=== PATIENT | female | born 1990 | race Caucasian/White ===

== ENCOUNTER 2021-04-04 09:45 | Outpatient (RCR) | payer OTHER, MEDICAID, SELFPAY ==
--- NOTE | 2021-01-15 14:26 | PT.OIE ---
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) Visit Care Team Role Provider Type Marco Antonio Ac MD Family Provider Non-Staff Primary Care Provider Specialty: Family Practice Address: [address] [place] [address], [id number] Email: Donny Deng DPM Attending Provider Non-Staff Referring Provider Specialty: Podiatry Address: [address] [place] [address], [phone] Email: Physical Therapy Initial Evaluation PT-OP-A Visit Information Start: 01/14/21 16:14 Freq: Status: Active Protocol: Document 01/15/21 09:02 MB (Rec: 01/15/21 09:25 MB [id number]) Out-Patient Physical Therapy Visit Information Visit Information Visit Type Initial Evaluation Visit Note Cee 24 visits per year Visit Start Time 09:02 Visit Stop Time 09:45 Total Visit Minutes 43 Visit Number 06/30 Evaluation Information Evaluation Date 01/15/21 Precautions Precautions Protocol for right LE, achilles not yet received and front office has called surgeon's office. Pt underwent right bone spur removal, calf lengthening and achilles reattachment on 12/06/20. 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 When she went to bed, her foot hurt. In August, she went to Urgent Care, got a boot and then was referred to Dr. Deng . Pt dx with right Isaac's Deformity, bone spur and tears around achilles. She underwent bone spur removal, calf lengthening and achilles reattachement on . On 12/22/20, she bumped her right foot and her incision opened. It bled a lot and went to the ED. When she followed- up with the surgeon on the , she was told NWB with boot and crutches until 01/07/21 . On 01/07/21 appointment date, she was told she could do light WB with boot and crutches. She still uses her knee scooter. It is uncomfortable starting to WB on the foot. She doesn't want to injure the foot. It hurts to extend through the foot. She has two small children. She is frustrated because she cannot be active. Her fiance and mom help out. Her mom transports her to PT. She has three steps to enter the home. She is sitting on her butt to bump down the steps. Once she is in the house, she has her knee scooter and get around. PMH includes depression, gastric sleeve. Pt reports 4-5/10 right calf and heel pain. She is waking up at night when she bumps her foot. Treatment Goals Patient/Caregiver Goals To decrease pain and improve mobility PT-OP-C Subjective Start: 01/14/21 16:14 Freq: Status: Active Protocol: Document 01/15/21 09:02 MB (Rec: 01/15/21 09:25 MB [id number]) OP-PT Subjective Patient Comments Patient Comments See history of current condition Patient Questionnaires Lower Extremity Functional Scale LEFS Score 26 LEFS Impairment 20 to 39% Impaired (Score 48- 62) PT-OP-G Mobility & Gait Start: 01/14/21 16:14 Freq: Status: Active Protocol: Document 01/15/21 09:02 MB (Rec: 01/15/21 14:26 MB [id number]) OP Gait Assessment Gait Gait Assistance Required: Independent Distance (Feet) 60 Able to Maintain Weight Bearing Status Yes During Gait Assistive Devices Assistive Device Axillary Crutches Orthotic/Prosthetic Devices or Brace: Yes Gait Deviations General Gait Pattern Antalgic,Decreased Stride Length,Decreased Feet Clearance,Flexed Trunk,Step-to Gait Factors Limiting Gait Function Factors Limiting Gait Function Decreased Activity Tolerance, Decreased Strength,Limited Range of Motion,Pain,Poor Balance Comments Gait Comments Pt arrives with axillary crutches that are short for her. She has boot donned on right foot and is WBTT with it and crutches. She states that surgeon cleared her for this light weight bearing with boot and crutches last week. She scoots right foot along the ground some with very limited WB with use of crutches for body weight support. Her gait is slow and antalgic. She likes crutches that height currently as it helps unweight her foot. PT does think that crutches could be raised at least one setting and ed pt this if she wants to try it at home. PT-OP-K Range of Motion Start: 01/14/21 16:14 Freq: Status: Active Protocol: Document 01/15/21 09:02 MB (Rec: 01/15/21 14:26 MB [id number]) Ankle and Foot Goniometric Range of Motion Ankle and Foot ROM Limitations Comments Right ankle: lacks 5 deg active DF, presents with 30 deg active PF, presents with 10 deg eversion and 25 deg inversion. Pt reports tape allergy in the hospital. She has scabs over distal right gastroc and over achilles and right LE edema and muscle wasting of distal LE musculature. Left foot and ankle are normal . PT-OP-M Strength Start: 01/14/21 16:14 Freq: Status: Active Protocol: Document 01/15/21 09:02 MB (Rec: 01/15/21 14:26 MB [id number]) Hip Strength Hip Manual Muscle Testing Left Flexion (L2) 5 Normal Abduction 5 Normal Adduction 5 Normal Right Flexion (L2) 5 Normal Abduction 5 Normal Adduction 5 Normal Knee Strength Knee Manual Muscle Testing Left Flexion (S2) 5 Normal Extension (L3) 5 Normal Right Flexion (S2) 5 Normal Extension (L3) 5 Normal Ankle/Foot Strength Ankle and Foot Manual Muscle Testing Left Dorsiflexion (L4) 5 Normal Inversion 5 Normal Eversion (S1) 5 Normal Right Comments NT due to recent surgery and pain PT-OP-Q Treatments Start: 01/14/21 16:14 Freq: Status: Active Protocol: Document 01/15/21 09:02 MB (Rec: 01/15/21 14:10 MB [id number]) Self-Care/Home Management Treatment Education Patient Education Home Exercise Program,Pain Management,Safety Other Education PT ed pt and mother: 1-Call surgeon's office to ask about protocol and if/when she can get into the pool 2-Benefits of thigh high compression and provided handout with measuring info and PT cuts G size Tubagrip and dons on pt today 3-Benefits of something to put under sheets in the bed to keep the sheets and blanket off her foot to help with sleeping 4-Use of frozen peas 5-Push active DF, PF, eversion and inversion in supine or reclined position since surgeon wrote that she should be doing this and it will help range 1-[id number]-[id number] over scar and calf with lotion after showering PT-OP-T Assessment and Plan Start: 01/14/21 16:14 Freq: Status: Active Protocol: Document 01/15/21 09:02 MB (Rec: 01/15/21 14:26 MB [id number]) Physical Therapy Assessment Rehab Potential Rehabilitation Potential Fair Evaluation Complexity Number of Personal Factors/Comorbidities 1-2 Number of Body Systems Impaired 1-2 Clinical Presentation at Evaluation Stable Impairments Impairments Activity Tolerance,Balance, Edema,Functional Activities, Functional Mobility,Gait, Integument,Pain,Posture,ROM, Soft Tissue Mobility,Strength Other Impairments Personal factors include that pt is a mom with two small children and she cannot currently drive. Her job requires her to drive most of the day. Body systems affected include musculoskeletal and neuromuscular. Her clinical presentation is stable to evolving (she did have the recent wound dehiscence). Other Concerns Fall Risk Yes Goals 5 Intermediate Goal (LTG) Pt will perform progressive HEP with I including balance, strengthening, flexibility, gait and aquatic exercises to improve range, pain and function by 03/17/21. LTG Duration 8 weeks 4 Professor Of Music Goal (LTG) Pt will demonstrate functional right ankle ROM and strength for gait without AD by . LTG Duration 8 weeks 3 Intermediate Goal (LTG) Pt will perform 4 stair ambulation with rails with mod I to allow safe home entry and negotiation by 03/17/21. LTG Duration 8 weeks 2 Intermediate Goal (LTG) Pt will perform WNLs on a standardized balance test to decrease fall risk by 03/17/21 . LTG Duration 8 weeks 1 Professor Of Music Goal (LTG) Pt will gait train at least 1200 feet in 6 minutes with or without LRAD to improve community ambulation by . LTG Duration 8 weeks Assessment Summary Assessment Pt is a 30 y/o female presenting with right calf, ankle and heel pain, decreased range, strength and gait after surgery including bone spur removal, calf lengthening and achilles tendon relocation. This PT clinic has not yet received a protocol from the doctor's office and the doctor's visit note received states that pt was NWB in boot. She staets that WB was increased last week to light WB in boot with crutches . This clinic's front office has called the provider's office and pt will call as well and PT will send this note over today. Pt will benefit from PT to improve range, balance, flexiblity, strength and gait. Pt is a mom with two small children and she is anxious to get back to work and drive. She is interested in aquatic exercises and so will include this in PT plan, though pt will have to get in the pool on her own at this time. Physical Therapy Plan Frequency and Duration Frequency of Treatment 2x/Week Duration of Treatment 8 weeks Plan of Care Start Date 01/15/21 Plan of Care End Date 03/17/21 Therapeutic Interventions Therapeutic Interventions Aquatic Therapy,Balance Training,Gait Training,Home Exercise Program,Joint Mobilizations,Manual Therapy, Neuromuscular Re-education, Orthotic/Prosthetic Management ,Patient/Caregiver Education, Self-Care/Home Management,Soft Tissue Mobilization, Therapeutic Activities, Therapeutic Exercises Modalities Cold Pack/Ice Massage,Electric Stimulation,Hot Packs, Ultrasound Next Visit Focus/Plan Next Note Type Treatment Note Next Visit Plan Progress manual work and exercises
--- NOTE | 2021-01-15 14:27 | PT.OPPOC ---
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) Visit Care Team Role Provider Type Marco Antonio Ac MD Family Provider Non-Staff Primary Care Provider Specialty: Family Practice Address: [address] [place] [address], [id number] Email: Donny Deng DPM Attending Provider Non-Staff Referring Provider Specialty: Podiatry Address: [address] [place] [address], [phone] Email: Plan Of Care PT-OP-T Assessment and Plan Start: 01/14/21 16:14 Freq: Status: Active Protocol: Document 01/15/21 09:02 MB (Rec: 01/15/21 14:26 MB [id number]) Physical Therapy Assessment Rehab Potential Rehabilitation Potential Fair Evaluation Complexity Number of Personal Factors/Comorbidities 1-2 Number of Body Systems Impaired 1-2 Clinical Presentation at Evaluation Stable Impairments Impairments Activity Tolerance,Balance, Edema,Functional Activities, Functional Mobility,Gait, Integument,Pain,Posture,ROM, Soft Tissue Mobility,Strength Other Impairments Personal factors include that pt is a mom with two small children and she cannot currently drive. Her job requires her to drive most of the day. Body systems affected include musculoskeletal and neuromuscular. Her clinical presentation is stable to evolving (she did have the recent wound dehiscence). Other Concerns Fall Risk Yes Goals 5 Senior Living Goal (LTG) Pt will perform progressive HEP with I including balance, strengthening, flexibility, gait and aquatic exercises to improve range, pain and function by 03/17/21. LTG Duration 8 weeks 4 Senior Living Goal (LTG) Pt will demonstrate functional right ankle ROM and strength for gait without AD by . LTG Duration 8 weeks 3 Senior Living Goal (LTG) Pt will perform 4 stair ambulation with rails with mod I to allow safe home entry and negotiation by 03/17/21. LTG Duration 8 weeks 2 Senior Living Goal (LTG) Pt will perform WNLs on a standardized balance test to decrease fall risk by 03/17/21 . LTG Duration 8 weeks 1 Professor Of Violin Goal (LTG) Pt will gait train at least 1200 feet in 6 minutes with or without LRAD to improve community ambulation by . LTG Duration 8 weeks Assessment Summary Assessment Pt is a 30 y/o female presenting with right calf, ankle and heel pain, decreased range, strength and gait after surgery including bone spur removal, calf lengthening and achilles tendon relocation. This PT clinic has not yet received a protocol from the doctor's office and the doctor's visit note received states that pt was NWB in boot. She staets that WB was increased last week to light WB in boot with crutches . This clinic's front office has called the provider's office and pt will call as well and PT will send this note over today. Pt will benefit from PT to improve range, balance, flexiblity, strength and gait. Pt is a mom with two small children and she is anxious to get back to work and drive. She is interested in aquatic exercises and so will include this in PT plan, though pt will have to get in the pool on her own at this time. Physical Therapy Plan Frequency and Duration Frequency of Treatment 2x/Week Duration of Treatment 8 weeks Plan of Care Start Date 01/15/21 Plan of Care End Date 03/17/21 Therapeutic Interventions Therapeutic Interventions Aquatic Therapy,Balance Training,Gait Training,Home Exercise Program,Joint Mobilizations,Manual Therapy, Neuromuscular Re-education, Orthotic/Prosthetic Management ,Patient/Caregiver Education, Self-Care/Home Management,Soft Tissue Mobilization, Therapeutic Activities, Therapeutic Exercises Modalities Cold Pack/Ice Massage,Electric Stimulation,Hot Packs, Ultrasound Next Visit Focus/Plan Next Note Type Treatment Note Next Visit Plan Progress manual work and exercises Plan of Care Dates Plan of Care Start Date 01/15/21 Plan of Care End Date 03/17/21 Electronically Signed by: Charito Hastings, PT 01/15/21 2590 Please Sign and Return: I have reviewed this Plan of Care and certify that the skilled therapy services above are required to meet the patient?s needs. Physician Signature Date Printed Name and Credentials Clinical Instructor Signature Printed Name and Credentials
--- NOTE | 2021-01-16 07:26 | PT-OP ANOTE ---
PT received message to call Dr. Deng's office back (PT left message asking for protocol yesterday afternoon.) PT speaks with front office person who reads note from the EMR that pt is allowed to progress WB as long as her incision is healed and she is allowed to progress in the pool. There are no other comments offered. PT asks for information to be faxed to clinic and provides fax number.
--- NOTE | 2021-01-17 10:34 | PT.OTN ---
Current Diagnoses Juvenile osteochondrosis of tarsus, unspecified ankle (01/17/21) Physical Therapy Treatment Note PT-OP-A Visit Information Start: 01/14/21 16:14 Freq: Status: Active Protocol: Document 01/17/21 09:45 MB (Rec: 01/17/21 10:33 MB [id number]) Out-Patient Physical Therapy Visit Information Visit Information Visit Type Treatment Note Visit Start Time 09:45 Visit Stop Time 10:30 Total Visit Minutes 45 Visit Number 07/31 Precautions Precautions 01/16/21: WBAT to the affected extremity with use of normal shoe. WB status should be progressed slowly with avoidance of high-impact activities and heavy lifting initially until further evaluation. Please focus on low impace stretching, proprioceptive and strengthening exercises. Pt is cleared for all physical therapy activities taking place in a pool. 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 When she went to bed, her foot hurt. In August, she went to Urgent Care, got a boot and then was referred to Dr. Deng . Pt dx with right Isaac's Deformity, bone spur and tears around achilles. She underwent bone spur removal, calf lengthening and achilles reattachement on . On 12/22/20, she bumped her right foot and her incision opened. It bled a lot and went to the ED. When she followed- up with the surgeon on the , she was told NWB with boot and crutches until 01/07/21 . On 01/07/21 appointment date, she was told she could do light WB with boot and crutches. She still uses her knee scooter. It is uncomfortable starting to WB on the foot. She doesn't want to injure the foot. It hurts to extend through the foot. She has two small children. She is frustrated because she cannot be active. Her fiance and mom help out. Her mom transports her to PT. She has three steps to enter the home. She is sitting on her butt to bump down the steps. Once she is in the house, she has her knee scooter and get around. PMH includes depression, gastric sleeve. Pt reports 4-5/10 right calf and heel pain. She is waking up at night when she bumps her foot. Treatment Goals Patient/Caregiver Goals To decrease pain and improve mobility PT-OP-C Subjective Start: 01/14/21 16:14 Freq: Status: Active Protocol: Document 01/17/21 09:45 MB (Rec: 01/17/21 10:34 MB [id number]) OP-PT Subjective Patient Comments Patient Comments Pt states that she talked with doctor's office. PT ed pt that we did receive referral. PT-OP-G Mobility & Gait Start: 01/14/21 16:14 Freq: Status: Active Protocol: Document 01/15/21 09:02 MB (Rec: 01/15/21 14:26 MB [id number]) OP Gait Assessment Gait Gait Assistance Required: Independent Distance (Feet) 60 Able to Maintain Weight Bearing Status Yes During Gait Assistive Devices Assistive Device Axillary Crutches Orthotic/Prosthetic Devices or Brace: Yes Gait Deviations General Gait Pattern Antalgic,Decreased Stride Length,Decreased Feet Clearance,Flexed Trunk,Step-to Gait Factors Limiting Gait Function Factors Limiting Gait Function Decreased Activity Tolerance, Decreased Strength,Limited Range of Motion,Pain,Poor Balance Comments Gait Comments Pt arrives with axillary crutches that are short for her. She has boot donned on right foot and is WBTT with it and crutches. She states that surgeon cleared her for this light weight bearing with boot and crutches last week. She scoots right foot along the ground some with very limited WB with use of crutches for body weight support. Her gait is slow and antalgic. She likes crutches that height currently as it helps unweight her foot. PT does think that crutches could be raised at least one setting and ed pt this if she wants to try it at home. PT-OP-K Range of Motion Start: 01/14/21 16:14 Freq: Status: Active Protocol: Document 01/15/21 09:02 MB (Rec: 01/15/21 14:26 MB [id number]) Ankle and Foot Goniometric Range of Motion Ankle and Foot ROM Limitations Comments Right ankle: lacks 5 deg active DF, presents with 30 deg active PF, presents with 10 deg eversion and 25 deg inversion. Pt reports tape allergy in the hospital. She has scabs over distal right gastroc and over achilles and right LE edema and muscle wasting of distal LE musculature. Left foot and ankle are normal . PT-OP-M Strength Start: 01/14/21 16:14 Freq: Status: Active Protocol: Document 01/15/21 09:02 MB (Rec: 01/15/21 14:26 MB [id number]) Hip Strength Hip Manual Muscle Testing Left Flexion (L2) 5 Normal Abduction 5 Normal Adduction 5 Normal Right Flexion (L2) 5 Normal Abduction 5 Normal Adduction 5 Normal Knee Strength Knee Manual Muscle Testing Left Flexion (S2) 5 Normal Extension (L3) 5 Normal Right Flexion (S2) 5 Normal Extension (L3) 5 Normal Ankle/Foot Strength Ankle and Foot Manual Muscle Testing Left Dorsiflexion (L4) 5 Normal Inversion 5 Normal Eversion (S1) 5 Normal Right Comments NT due to recent surgery and pain PT-OP-Q Treatments Start: 01/14/21 16:14 Freq: Status: Active Protocol: Document 01/17/21 09:45 MB (Rec: 01/17/21 10:33 MB [id number]) Cardio Equipment Recumbent Elliptical (BiodPinpointe) Duration (Minutes) 15 Resistance 2 Seat Position 8-9 Other UE and LE use, progressive confidence in right foot Therapeutic Exercises Supine Exercises Hamstring stretch with AP Side bilateral Comments AP 20-30 reps Sitting Exercises Foot hammock with band Comments Foot and AP with level 1 band to start Other Exercises Pool program Other Exercise Name Thoracic rotation with arms out standing for weight shift, SB standing Comments March, hamstring curl, walking , squats hip abd/ext/flexion Gait Training Gait Activity Crutch with left side only today Comments Boot on right foot, cues to wear higher shoe on left foot Manual Therapy Treatment Other Other Manual Treatments Right gastrocsoleus and plantar fascia STM, phalange mobs and grade II-III tarsal mobs, scar STM and pt reports is tender PT-OP-T Assessment and Plan Start: 01/14/21 16:14 Freq: Status: Active Protocol: Document 01/17/21 09:45 MB (Rec: 01/17/21 10:33 MB [id number]) Physical Therapy Assessment Rehab Potential Rehabilitation Potential Fair Evaluation Complexity Number of Personal Factors/Comorbidities 1-2 Number of Body Systems Impaired 1-2 Clinical Presentation at Evaluation Stable Impairments Impairments Activity Tolerance,Balance, Edema,Functional Activities, Functional Mobility,Gait, Integument,Pain,Posture,ROM, Soft Tissue Mobility,Strength Other Impairments Personal factors include that pt is a mom with two small children and she cannot currently drive. Her job requires her to drive most of the day. Body systems affected include musculoskeletal and neuromuscular. Her clinical presentation is stable to evolving (she did have the recent wound dehiscence). Other Concerns Fall Risk Yes Goals 5 Cardiovascular Surgical Tech Goal (LTG) Pt will perform progressive HEP with I including balance, strengthening, flexibility, gait and aquatic exercises to improve range, pain and function by 03/17/21. LTG Duration 8 weeks 4 Senior Living Goal (LTG) Pt will demonstrate functional right ankle ROM and strength for gait without AD by . LTG Duration 8 weeks 3 Senior Living Goal (LTG) Pt will perform 4 stair ambulation with rails with mod I to allow safe home entry and negotiation by 03/17/21. LTG Duration 8 weeks 2 Cardiovascular Surgical Tech Goal (LTG) Pt will perform WNLs on a standardized balance test to decrease fall risk by 03/17/21 . LTG Duration 8 weeks 1 Senior Living Goal (LTG) Pt will gait train at least 1200 feet in 6 minutes with or without LRAD to improve community ambulation by . LTG Duration 8 weeks Assessment Summary Assessment Progressed ROM exercises today , started recumbent stepper and provided initial pool program and PT gives pt handouts. Pt will look into getting into pool in [facility]. Physical Therapy Plan Frequency and Duration Frequency of Treatment 2x/Week Duration of Treatment 8 weeks Plan of Care Start Date 01/15/21 Plan of Care End Date 03/17/21 Therapeutic Interventions Therapeutic Interventions Aquatic Therapy,Balance Training,Gait Training,Home Exercise Program,Joint Mobilizations,Manual Therapy, Neuromuscular Re-education, Orthotic/Prosthetic Management ,Patient/Caregiver Education, Self-Care/Home Management,Soft Tissue Mobilization, Therapeutic Activities, Therapeutic Exercises Modalities Cold Pack/Ice Massage,Electric Stimulation,Hot Packs, Ultrasound Next Visit Focus/Plan Next Note Type Treatment Note Next Visit Plan Progress manual work and exercises--including core and leg strengthening in sitting and hook lying such as bridging
--- NOTE | 2021-01-22 09:01 | PT.OTN ---
Current Diagnoses Juvenile osteochondrosis of tarsus, unspecified ankle (01/22/21) Physical Therapy Treatment Note PT-OP-A Visit Information Start: 01/14/21 16:14 Freq: Status: Active Protocol: Document 01/22/21 08:15 MB (Rec: 01/22/21 08:42 MB [id number]) Out-Patient Physical Therapy Visit Information Visit Information Visit Type Treatment Note Visit Start Time 08:15 Visit Stop Time 09:00 Total Visit Minutes 45 Visit Number 08/28 Precautions Precautions 01/16/21: WBAT to the affected extremity with use of normal shoe. WB status should be progressed slowly with avoidance of high-impact activities and heavy lifting initially until further evaluation. Please focus on low impace stretching, proprioceptive and strengthening exercises. Pt is cleared for all physical therapy activities taking place in a pool. 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 When she went to bed, her foot hurt. In August, she went to Urgent Care, got a boot and then was referred to Dr. Deng . Pt dx with right Isaac's Deformity, bone spur and tears around achilles. She underwent bone spur removal, calf lengthening and achilles reattachement on . On 12/22/20, she bumped her right foot and her incision opened. It bled a lot and went to the ED. When she followed- up with the surgeon on the , she was told NWB with boot and crutches until 01/07/21 . On 01/07/21 appointment date, she was told she could do light WB with boot and crutches. She still uses her knee scooter. It is uncomfortable starting to WB on the foot. She doesn't want to injure the foot. It hurts to extend through the foot. She has two small children. She is frustrated because she cannot be active. Her fiance and mom help out. Her mom transports her to PT. She has three steps to enter the home. She is sitting on her butt to bump down the steps. Once she is in the house, she has her knee scooter and get around. PMH includes depression, gastric sleeve. Pt reports 4-5/10 right calf and heel pain. She is waking up at night when she bumps her foot. Treatment Goals Patient/Caregiver Goals To decrease pain and improve mobility PT-OP-C Subjective Start: 01/14/21 16:14 Freq: Status: Active Protocol: Document 01/22/21 08:15 MB (Rec: 01/22/21 08:42 MB [id number]) OP-PT Subjective Patient Comments Patient Comments Pt states that she feels more tenderness in her right heel and calf after doing more with her foot including walking with the one crutch and doing exercises. PT-OP-G Mobility & Gait Start: 01/14/21 16:14 Freq: Status: Active Protocol: Document 01/15/21 09:02 MB (Rec: 01/15/21 14:26 MB [id number]) OP Gait Assessment Gait Gait Assistance Required: Independent Distance (Feet) 60 Able to Maintain Weight Bearing Status Yes During Gait Assistive Devices Assistive Device Axillary Crutches Orthotic/Prosthetic Devices or Brace: Yes Gait Deviations General Gait Pattern Antalgic,Decreased Stride Length,Decreased Feet Clearance,Flexed Trunk,Step-to Gait Factors Limiting Gait Function Factors Limiting Gait Function Decreased Activity Tolerance, Decreased Strength,Limited Range of Motion,Pain,Poor Balance Comments Gait Comments Pt arrives with axillary crutches that are short for her. She has boot donned on right foot and is WBTT with it and crutches. She states that surgeon cleared her for this light weight bearing with boot and crutches last week. She scoots right foot along the ground some with very limited WB with use of crutches for body weight support. Her gait is slow and antalgic. She likes crutches that height currently as it helps unweight her foot. PT does think that crutches could be raised at least one setting and ed pt this if she wants to try it at home. PT-OP-K Range of Motion Start: 01/14/21 16:14 Freq: Status: Active Protocol: Document 01/15/21 09:02 MB (Rec: 01/15/21 14:26 MB [id number]) Ankle and Foot Goniometric Range of Motion Ankle and Foot ROM Limitations Comments Right ankle: lacks 5 deg active DF, presents with 30 deg active PF, presents with 10 deg eversion and 25 deg inversion. Pt reports tape allergy in the hospital. She has scabs over distal right gastroc and over achilles and right LE edema and muscle wasting of distal LE musculature. Left foot and ankle are normal . PT-OP-M Strength Start: 01/14/21 16:14 Freq: Status: Active Protocol: Document 01/15/21 09:02 MB (Rec: 01/15/21 14:26 MB [id number]) Hip Strength Hip Manual Muscle Testing Left Flexion (L2) 5 Normal Abduction 5 Normal Adduction 5 Normal Right Flexion (L2) 5 Normal Abduction 5 Normal Adduction 5 Normal Knee Strength Knee Manual Muscle Testing Left Flexion (S2) 5 Normal Extension (L3) 5 Normal Right Flexion (S2) 5 Normal Extension (L3) 5 Normal Ankle/Foot Strength Ankle and Foot Manual Muscle Testing Left Dorsiflexion (L4) 5 Normal Inversion 5 Normal Eversion (S1) 5 Normal Right Comments NT due to recent surgery and pain PT-OP-Q Treatments Start: 01/14/21 16:14 Freq: Status: Active Protocol: Document 01/22/21 08:15 MB (Rec: 01/22/21 08:42 MB [id number]) Cardio Equipment Recumbent Elliptical (BiodRatePoint) Duration (Minutes) 10 Resistance 2 Seat Position 11 Other UE and LE use Therapeutic Exercises Supine Exercises Core progression Supine Exercise Name Abd draw in, pelvic tilt start position Side bilateral Comments Lumbar rotation, HS, knee fall out, bridge with band around knees Manual Therapy Treatment Other Other Manual Treatments Pt prone; Right gastrocsoleus and plantar fascia STM, phalange mobs and grade II-III tarsal mobs, scar STM PT-OP-T Assessment and Plan Start: 01/14/21 16:14 Freq: Status: Active Protocol: Document 01/22/21 08:15 MB (Rec: 01/22/21 08:42 MB [id number]) Physical Therapy Assessment Rehab Potential Rehabilitation Potential Fair Evaluation Complexity Number of Personal Factors/Comorbidities 1-2 Number of Body Systems Impaired 1-2 Clinical Presentation at Evaluation Stable Impairments Impairments Activity Tolerance,Balance, Edema,Functional Activities, Functional Mobility,Gait, Integument,Pain,Posture,ROM, Soft Tissue Mobility,Strength Other Impairments Personal factors include that pt is a mom with two small children and she cannot currently drive. Her job requires her to drive most of the day. Body systems affected include musculoskeletal and neuromuscular. Her clinical presentation is stable to evolving (she did have the recent wound dehiscence). Other Concerns Fall Risk Yes Goals 5 Auto Claim Representative Goal (LTG) Pt will perform progressive HEP with I including balance, strengthening, flexibility, gait and aquatic exercises to improve range, pain and function by 03/17/21. LTG Duration 8 weeks 4 Auto Claim Representative Goal (LTG) Pt will demonstrate functional right ankle ROM and strength for gait without AD by . LTG Duration 8 weeks 3 Snf Goal (LTG) Pt will perform 4 stair ambulation with rails with mod I to allow safe home entry and negotiation by 03/17/21. LTG Duration 8 weeks 2 Snf Goal (LTG) Pt will perform WNLs on a standardized balance test to decrease fall risk by 03/17/21 . LTG Duration 8 weeks 1 Snf Goal (LTG) Pt will gait train at least 1200 feet in 6 minutes with or without LRAD to improve community ambulation by . LTG Duration 8 weeks Assessment Summary Assessment Progressed core exercises today and this required legs to be bent and feet flatter. Pt will inquire about the pool the end of the month when finances are better. Physical Therapy Plan Frequency and Duration Frequency of Treatment 2x/Week Duration of Treatment 8 weeks Plan of Care Start Date 01/15/21 Plan of Care End Date 03/17/21 Therapeutic Interventions Therapeutic Interventions Aquatic Therapy,Balance Training,Gait Training,Home Exercise Program,Joint Mobilizations,Manual Therapy, Neuromuscular Re-education, Orthotic/Prosthetic Management ,Patient/Caregiver Education, Self-Care/Home Management,Soft Tissue Mobilization, Therapeutic Activities, Therapeutic Exercises Modalities Cold Pack/Ice Massage,Electric Stimulation,Hot Packs, Ultrasound Next Visit Focus/Plan Next Note Type Treatment Note Next Visit Plan Progress manual work and exercises, leg strengthening in sitting--LAQ with band around ankles, sitting clam with band around knees, calf stretch in standing for soleus and gastroc and NOT ON STEP, progress ankle ROM sitting with BAPS board and standing on mini tramp or blue cushion
--- NOTE | 2021-01-24 10:32 | PT.OTN ---
Current Diagnoses Juvenile osteochondrosis of tarsus, unspecified ankle (01/24/21) Physical Therapy Treatment Note PT-OP-A Visit Information Start: 01/14/21 16:14 Freq: Status: Active Protocol: Document 01/24/21 09:45 MB (Rec: 01/24/21 10:28 MB [id number]) Out-Patient Physical Therapy Visit Information Visit Information Visit Type Treatment Note Visit Note Pt returns to Dr. Deng 02/06/21 . PT to send over note 01/29/21 . Visit Start Time 09:45 Visit Stop Time 10:30 Total Visit Minutes 45 Visit Number 4 Precautions Precautions 01/16/21: WBAT to the affected extremity with use of normal shoe. WB status should be progressed slowly with avoidance of high-impact activities and heavy lifting initially until further evaluation. Please focus on low impace stretching, proprioceptive and strengthening exercises. Pt is cleared for all physical therapy activities taking place in a pool. 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 When she went to bed, her foot hurt. In August, she went to Urgent Care, got a boot and then was referred to Dr. Deng . Pt dx with right Isaac's Deformity, bone spur and tears around achilles. She underwent bone spur removal, calf lengthening and achilles reattachement on . On 12/22/20, she bumped her right foot and her incision opened. It bled a lot and went to the ED. When she followed- up with the surgeon on the , she was told NWB with boot and crutches until 01/07/21 . On 01/07/21 appointment date, she was told she could do light WB with boot and crutches. She still uses her knee scooter. It is uncomfortable starting to WB on the foot. She doesn't want to injure the foot. It hurts to extend through the foot. She has two small children. She is frustrated because she cannot be active. Her fiance and mom help out. Her mom transports her to PT. She has three steps to enter the home. She is sitting on her butt to bump down the steps. Once she is in the house, she has her knee scooter and get around. PMH includes depression, gastric sleeve. Pt reports 4-5/10 right calf and heel pain. She is waking up at night when she bumps her foot. Treatment Goals Patient/Caregiver Goals To decrease pain and improve mobility PT-OP-C Subjective Start: 01/14/21 16:14 Freq: Status: Active Protocol: Document 01/24/21 09:45 MB (Rec: 01/24/21 10:28 MB [id number]) OP-PT Subjective Patient Comments Patient Comments Pt states that she put her shoes on at the house and her right ankle doesn't even feel swollen. She reduced appointments to 1x/wk. PT-OP-G Mobility & Gait Start: 01/14/21 16:14 Freq: Status: Active Protocol: Document 01/15/21 09:02 MB (Rec: 01/15/21 14:26 MB [id number]) OP Gait Assessment Gait Gait Assistance Required: Independent Distance (Feet) 60 Able to Maintain Weight Bearing Status Yes During Gait Assistive Devices Assistive Device Axillary Crutches Orthotic/Prosthetic Devices or Brace: Yes Gait Deviations General Gait Pattern Antalgic,Decreased Stride Length,Decreased Feet Clearance,Flexed Trunk,Step-to Gait Factors Limiting Gait Function Factors Limiting Gait Function Decreased Activity Tolerance, Decreased Strength,Limited Range of Motion,Pain,Poor Balance Comments Gait Comments Pt arrives with axillary crutches that are short for her. She has boot donned on right foot and is WBTT with it and crutches. She states that surgeon cleared her for this light weight bearing with boot and crutches last week. She scoots right foot along the ground some with very limited WB with use of crutches for body weight support. Her gait is slow and antalgic. She likes crutches that height currently as it helps unweight her foot. PT does think that crutches could be raised at least one setting and ed pt this if she wants to try it at home. PT-OP-K Range of Motion Start: 01/14/21 16:14 Freq: Status: Active Protocol: Document 01/15/21 09:02 MB (Rec: 01/15/21 14:26 MB [id number]) Ankle and Foot Goniometric Range of Motion Ankle and Foot ROM Limitations Comments Right ankle: lacks 5 deg active DF, presents with 30 deg active PF, presents with 10 deg eversion and 25 deg inversion. Pt reports tape allergy in the hospital. She has scabs over distal right gastroc and over achilles and right LE edema and muscle wasting of distal LE musculature. Left foot and ankle are normal . PT-OP-M Strength Start: 01/14/21 16:14 Freq: Status: Active Protocol: Document 01/15/21 09:02 MB (Rec: 01/15/21 14:26 MB [id number]) Hip Strength Hip Manual Muscle Testing Left Flexion (L2) 5 Normal Abduction 5 Normal Adduction 5 Normal Right Flexion (L2) 5 Normal Abduction 5 Normal Adduction 5 Normal Knee Strength Knee Manual Muscle Testing Left Flexion (S2) 5 Normal Extension (L3) 5 Normal Right Flexion (S2) 5 Normal Extension (L3) 5 Normal Ankle/Foot Strength Ankle and Foot Manual Muscle Testing Left Dorsiflexion (L4) 5 Normal Inversion 5 Normal Eversion (S1) 5 Normal Right Comments NT due to recent surgery and pain PT-OP-Q Treatments Start: 01/14/21 16:14 Freq: Status: Active Protocol: Document 01/24/21 09:45 MB (Rec: 01/24/21 10:28 MB [id number]) Cardio Equipment Recumbent Elliptical (Red e App) Duration (Minutes) 15 Resistance 3 Seat Position 10 Other UE and LE use Therapeutic Exercises Sitting Exercises LAQ with band Side bilateral Resistance Green band Comments Alternating and AP x5 with extension, 10 reps Clam Side bilateral Resistance Green band Comments Core and glute tight, knees out, 10 reps Standing Exercises Gastroc and soleus stretches Side bilateral Comments Move between knee extended and straighter Manual Therapy Treatment Other Other Manual Treatments Pt prone. Right gastrocsoleus and plantar fascia STM, phalange mobs and grade II-III tarsal mobs, scar STM PT-OP-T Assessment and Plan Start: 01/14/21 16:14 Freq: Status: Active Protocol: Document 01/24/21 09:45 MB (Rec: 01/24/21 10:28 MB [id number]) Physical Therapy Assessment Rehab Potential Rehabilitation Potential Fair Evaluation Complexity Number of Personal Factors/Comorbidities 1-2 Number of Body Systems Impaired 1-2 Clinical Presentation at Evaluation Stable Impairments Impairments Activity Tolerance,Balance, Edema,Functional Activities, Functional Mobility,Gait, Integument,Pain,Posture,ROM, Soft Tissue Mobility,Strength Other Impairments Personal factors include that pt is a mom with two small children and she cannot currently drive. Her job requires her to drive most of the day. Body systems affected include musculoskeletal and neuromuscular. Her clinical presentation is stable to evolving (she did have the recent wound dehiscence). Other Concerns Fall Risk Yes Goals 5 Senior Care Goal (LTG) Pt will perform progressive HEP with I including balance, strengthening, flexibility, gait and aquatic exercises to improve range, pain and function by 03/17/21. LTG Duration 8 weeks 4 [place] Goal (LTG) Pt will demonstrate functional right ankle ROM and strength for gait without AD by . LTG Duration 8 weeks 3 Senior Care Goal (LTG) Pt will perform 4 stair ambulation with rails with mod I to allow safe home entry and negotiation by 03/17/21. LTG Duration 8 weeks 2 Senior Care Goal (LTG) Pt will perform WNLs on a standardized balance test to decrease fall risk by 03/17/21 . LTG Duration 8 weeks 1 [place]man Goal (LTG) Pt will gait train at least 1200 feet in 6 minutes with or without LRAD to improve community ambulation by . LTG Duration 8 weeks Assessment Summary Assessment Progressed quad and hip strengthening today and gentle calf stretches in standing. Retalked about pool schedule options. Physical Therapy Plan Frequency and Duration Frequency of Treatment 2x/Week Duration of Treatment 8 weeks Plan of Care Start Date 01/15/21 Plan of Care End Date 03/17/21 Therapeutic Interventions Therapeutic Interventions Aquatic Therapy,Balance Training,Gait Training,Home Exercise Program,Joint Mobilizations,Manual Therapy, Neuromuscular Re-education, Orthotic/Prosthetic Management ,Patient/Caregiver Education, Self-Care/Home Management,Soft Tissue Mobilization, Therapeutic Activities, Therapeutic Exercises Modalities Cold Pack/Ice Massage,Electric Stimulation,Hot Packs, Ultrasound Next Visit Focus/Plan Next Note Type Treatment Note Next Visit Plan Progress manual work, NO strecthing over a STEP, progress ankle ROM sitting with BAPS board and standing on mini tramp or blue cushion
--- NOTE | 2021-01-29 08:57 | PT.OTN ---
Current Diagnoses Juvenile osteochondrosis of tarsus, unspecified ankle (01/29/21) Physical Therapy Treatment Note PT-OP-A Visit Information Start: 01/14/21 16:14 Freq: Status: Active Protocol: Document 01/29/21 08:09 MB (Rec: 01/29/21 08:48 MB [id number]) Out-Patient Physical Therapy Visit Information Visit Information Visit Type Treatment Note Visit Note Pt returns to Dr. Deng 02/06/21 Visit Start Time 08:09 Visit Stop Time 08:55 Total Visit Minutes 46 Visit Number 10/28 Precautions Precautions 01/16/21: WBAT to the affected extremity with use of normal shoe. WB status should be progressed slowly with avoidance of high-impact activities and heavy lifting initially until further evaluation. Please focus on low impace stretching, proprioceptive and strengthening exercises. Pt is cleared for all physical therapy activities taking place in a pool. 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 When she went to bed, her foot hurt. In August, she went to Urgent Care, got a boot and then was referred to Dr. Deng . Pt dx with right Isaac's Deformity, bone spur and tears around achilles. She underwent bone spur removal, calf lengthening and achilles reattachement on . On 12/22/20, she bumped her right foot and her incision opened. It bled a lot and went to the ED. When she followed- up with the surgeon on the , she was told NWB with boot and crutches until 01/07/21 . On 01/07/21 appointment date, she was told she could do light WB with boot and crutches. She still uses her knee scooter. It is uncomfortable starting to WB on the foot. She doesn't want to injure the foot. It hurts to extend through the foot. She has two small children. She is frustrated because she cannot be active. Her fiance and mom help out. Her mom transports her to PT. She has three steps to enter the home. She is sitting on her butt to bump down the steps. Once she is in the house, she has her knee scooter and get around. PMH includes depression, gastric sleeve. Pt reports 4-5/10 right calf and heel pain. She is waking up at night when she bumps her foot. Treatment Goals Patient/Caregiver Goals To decrease pain and improve mobility PT-OP-C Subjective Start: 01/14/21 16:14 Freq: Status: Active Protocol: Document 01/29/21 08:09 MB (Rec: 01/29/21 08:48 MB [id number]) OP-PT Subjective Patient Comments Patient Comments Pt states that she tried to wear her running shoes a couple of days and the pressure on the bottom of the right heel was problematic and so she did not bring in her shoes today. She did bring in her sandals and she wears her walking boot into clinic. PT-OP-G Mobility & Gait Start: 01/14/21 16:14 Freq: Status: Active Protocol: Document 01/15/21 09:02 MB (Rec: 01/15/21 14:26 MB [id number]) OP Gait Assessment Gait Gait Assistance Required: Independent Distance (Feet) 60 Able to Maintain Weight Bearing Status Yes During Gait Assistive Devices Assistive Device Axillary Crutches Orthotic/Prosthetic Devices or Brace: Yes Gait Deviations General Gait Pattern Antalgic,Decreased Stride Length,Decreased Feet Clearance,Flexed Trunk,Step-to Gait Factors Limiting Gait Function Factors Limiting Gait Function Decreased Activity Tolerance, Decreased Strength,Limited Range of Motion,Pain,Poor Balance Comments Gait Comments Pt arrives with axillary crutches that are short for her. She has boot donned on right foot and is WBTT with it and crutches. She states that surgeon cleared her for this light weight bearing with boot and crutches last week. She scoots right foot along the ground some with very limited WB with use of crutches for body weight support. Her gait is slow and antalgic. She likes crutches that height currently as it helps unweight her foot. PT does think that crutches could be raised at least one setting and ed pt this if she wants to try it at home. PT-OP-K Range of Motion Start: 01/14/21 16:14 Freq: Status: Active Protocol: Document 01/15/21 09:02 MB (Rec: 01/15/21 14:26 MB [id number]) Ankle and Foot Goniometric Range of Motion Ankle and Foot ROM Limitations Comments Right ankle: lacks 5 deg active DF, presents with 30 deg active PF, presents with 10 deg eversion and 25 deg inversion. Pt reports tape allergy in the hospital. She has scabs over distal right gastroc and over achilles and right LE edema and muscle wasting of distal LE musculature. Left foot and ankle are normal . PT-OP-M Strength Start: 01/14/21 16:14 Freq: Status: Active Protocol: Document 01/15/21 09:02 MB (Rec: 01/15/21 14:26 MB [id number]) Hip Strength Hip Manual Muscle Testing Left Flexion (L2) 5 Normal Abduction 5 Normal Adduction 5 Normal Right Flexion (L2) 5 Normal Abduction 5 Normal Adduction 5 Normal Knee Strength Knee Manual Muscle Testing Left Flexion (S2) 5 Normal Extension (L3) 5 Normal Right Flexion (S2) 5 Normal Extension (L3) 5 Normal Ankle/Foot Strength Ankle and Foot Manual Muscle Testing Left Dorsiflexion (L4) 5 Normal Inversion 5 Normal Eversion (S1) 5 Normal Right Comments NT due to recent surgery and pain PT-OP-Q Treatments Start: 01/14/21 16:14 Freq: Status: Active Protocol: Document 01/29/21 08:09 MB (Rec: 01/29/21 08:48 MB [id number]) Cardio Equipment Recumbent Elliptical (Biodex) Duration (Minutes) 16 Resistance 3 Seat Position 10 Other UEs and LEs Manual Therapy Treatment Other Other Manual Treatments Pt prone: right gastrocsoleus and plantar fascia STM, phalange mobs and grade II-III tarsal mobs, scar STM Neuro Re-Education Treatment Balance Activities Corner balance Comments Pt wearing sandals without back on them: Romberg, Romber with EC, partial tandem--much more challenging with right foot behind Self-Care/Home Management Treatment Education Other Education Ed pt in benefits and wear of [place] sock and provided handout. Ed pt to discuss with Dr. Deng at visit. PT-OP-T Assessment and Plan Start: 01/14/21 16:14 Freq: Status: Active Protocol: Document 01/29/21 08:09 MB (Rec: 01/29/21 08:48 MB [id number]) Physical Therapy Assessment Rehab Potential Rehabilitation Potential Fair Evaluation Complexity Number of Personal Factors/Comorbidities 1-2 Number of Body Systems Impaired 1-2 Clinical Presentation at Evaluation Stable Impairments Impairments Activity Tolerance,Balance, Edema,Functional Activities, Functional Mobility,Gait, Integument,Pain,Posture,ROM, Soft Tissue Mobility,Strength Other Impairments Personal factors include that pt is a mom with two small children and she cannot currently drive. Her job requires her to drive most of the day. Body systems affected include musculoskeletal and neuromuscular. Her clinical presentation is stable to evolving (she did have the recent wound dehiscence). Other Concerns Fall Risk Yes Goals 5 Sound Effects Supervisor Goal (LTG) Pt will perform progressive HEP with I including balance, strengthening, flexibility, gait and aquatic exercises to improve range, pain and function by 03/17/21. LTG Duration 8 weeks 4 Sound Effects Supervisor Goal (LTG) Pt will demonstrate functional right ankle ROM and strength for gait without AD by . LTG Duration 8 weeks 3 Sound Effects Supervisor Goal (LTG) Pt will perform 4 stair ambulation with rails with mod I to allow safe home entry and negotiation by 03/17/21. LTG Duration 8 weeks 2 Senior Care Goal (LTG) Pt will perform WNLs on a standardized balance test to decrease fall risk by 03/17/21 . LTG Duration 8 weeks 1 Senior Care Goal (LTG) Pt will gait train at least 1200 feet in 6 minutes with or without LRAD to improve community ambulation by . LTG Duration 8 weeks Assessment Summary Assessment PT is concerned about pt returning to work until she can tolerate wearing shoes working hours and if she is required to drive, she has to be able to tolerate pushing the gas pedal and brake for driving. Pt states that she was told that she cannot return part-time or not driving. PT encourages pt to talk with Dr. Deng about this . Pt is performing progressive exercises and is going to start with the pool as soon as she can. Progressed balance exercise today and education about [place] sock. Physical Therapy Plan Frequency and Duration Frequency of Treatment 2x/Week Duration of Treatment 8 weeks Plan of Care Start Date 01/15/21 Plan of Care End Date 03/17/21 Therapeutic Interventions Therapeutic Interventions Aquatic Therapy,Balance Training,Gait Training,Home Exercise Program,Joint Mobilizations,Manual Therapy, Neuromuscular Re-education, Orthotic/Prosthetic Management ,Patient/Caregiver Education, Self-Care/Home Management,Soft Tissue Mobilization, Therapeutic Activities, Therapeutic Exercises Modalities Cold Pack/Ice Massage,Electric Stimulation,Hot Packs, Ultrasound Next Visit Focus/Plan Next Note Type Treatment Note Next Visit Plan Similar: Progress manual work, NO strecthing over a STEP, progress ankle ROM sitting with BAPS board and standing on mini tramp or blue cushion
--- NOTE | 2021-02-07 10:35 | PT.OTN ---
Addendum entered and electronically signed by Stefanie Austin, BARRETT 02/07/21 12:00: Pt responded well to ther ex and wt shift pre gait and carryover walking this tx. It feels good to do these exercises, feels stronger and more supportive. Pt more stabilized gait leaving. Original Note: Current Diagnoses Juvenile osteochondrosis of tarsus, unspecified ankle (02/07/21) Physical Therapy Treatment Note PT-OP-A Visit Information Start: 01/14/21 16:14 Freq: Status: Active Protocol: Document 02/07/21 09:48 SP (Rec: 02/07/21 11:59 SP [id number]) Out-Patient Physical Therapy Visit Information Visit Information Visit Type Treatment Note Visit Note Pt returns to Dr. Deng 02/06/21 Visit Start Time 09:48 Visit Stop Time 10:35 Total Visit Minutes 42 Visit Number 11/28 Number of SENIOR PAYROLL ADMINISTRATOR Visits 1 Evaluation Information Evaluation Date 01/15/21 Precautions Precautions 01/16/21: WBAT to the affected extremity with use of normal shoe. WB status should be progressed slowly with avoidance of high-impact activities and heavy lifting initially until further evaluation. Please focus on low impace stretching, proprioceptive and strengthening exercises. Pt is cleared for all physical therapy activities taking place in a pool. 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 When she went to bed, her foot hurt. In August, she went to Urgent Care, got a boot and then was referred to Dr. Deng . Pt dx with right Isaac's Deformity, bone spur and tears around achilles. She underwent bone spur removal, calf lengthening and achilles reattachement on . On 12/22/20, she bumped her right foot and her incision opened. It bled a lot and went to the ED. When she followed- up with the surgeon on the , she was told NWB with boot and crutches until 01/07/21 . On 01/07/21 appointment date, she was told she could do light WB with boot and crutches. She still uses her knee scooter. It is uncomfortable starting to WB on the foot. She doesn't want to injure the foot. It hurts to extend through the foot. She has two small children. She is frustrated because she cannot be active. Her fiance and mom help out. Her mom transports her to PT. She has three steps to enter the home. She is sitting on her butt to bump down the steps. Once she is in the house, she has her knee scooter and get around. PMH includes depression, gastric sleeve. Pt reports 4-5/10 right calf and heel pain. She is waking up at night when she bumps her foot. Treatment Goals Patient/Caregiver Goals To decrease pain and improve mobility PT-OP-C Subjective Start: 01/14/21 16:14 Freq: Status: Active Protocol: Document 02/07/21 09:48 SP (Rec: 02/07/21 11:59 SP [id number]) OP-PT Subjective Patient Comments Patient Comments Pt arrived with shoe donned and no AD antalgic gait sneakers donned harder to walk in goes without shoes at home . Saw Dr Deng and instructed to wear shoes for added ankle support when walking around, only use of crutch if needed for extra support over uneven surfaces and allowed to start driving for short personal use but not for work until Mar 15 due to aggressive WB and ankle mobility and allow to allow continue to heal properly. She will have office send updated note with progression allowances faxed to us. Pt states has difficulty walking longer distances at this time so needs more rests. Pt has to cancel next 2 weeks of appts due to personal legal event out of her control, wants to also spread out her visits to 1x/wk and continue progressive HEP hoping to get this visit and next until can return Oct 1. Wants to add more appts to progress strength and mobility after that date able to return. Doesn't want to loose ground while has to do HEP on own during that time. PT-OP-G Mobility & Gait Start: 01/14/21 16:14 Freq: Status: Active Protocol: Document 01/15/21 09:02 MB (Rec: 01/15/21 14:26 MB [id number]) OP Gait Assessment Gait Gait Assistance Required: Independent Distance (Feet) 60 Able to Maintain Weight Bearing Status Yes During Gait Assistive Devices Assistive Device Axillary Crutches Orthotic/Prosthetic Devices or Brace: Yes Gait Deviations General Gait Pattern Antalgic,Decreased Stride Length,Decreased Feet Clearance,Flexed Trunk,Step-to Gait Factors Limiting Gait Function Factors Limiting Gait Function Decreased Activity Tolerance, Decreased Strength,Limited Range of Motion,Pain,Poor Balance Comments Gait Comments Pt arrives with axillary crutches that are short for her. She has boot donned on right foot and is WBTT with it and crutches. She states that surgeon cleared her for this light weight bearing with boot and crutches last week. She scoots right foot along the ground some with very limited WB with use of crutches for body weight support. Her gait is slow and antalgic. She likes crutches that height currently as it helps unweight her foot. PT does think that crutches could be raised at least one setting and ed pt this if she wants to try it at home. PT-OP-K Range of Motion Start: 01/14/21 16:14 Freq: Status: Active Protocol: Document 01/15/21 09:02 MB (Rec: 01/15/21 14:26 MB [id number]) Ankle and Foot Goniometric Range of Motion Ankle and Foot ROM Limitations Comments Right ankle: lacks 5 deg active DF, presents with 30 deg active PF, presents with 10 deg eversion and 25 deg inversion. Pt reports tape allergy in the hospital. She has scabs over distal right gastroc and over achilles and right LE edema and muscle wasting of distal LE musculature. Left foot and ankle are normal . PT-OP-M Strength Start: 01/14/21 16:14 Freq: Status: Active Protocol: Document 01/15/21 09:02 MB (Rec: 01/15/21 14:26 MB [id number]) Hip Strength Hip Manual Muscle Testing Left Flexion (L2) 5 Normal Abduction 5 Normal Adduction 5 Normal Right Flexion (L2) 5 Normal Abduction 5 Normal Adduction 5 Normal Knee Strength Knee Manual Muscle Testing Left Flexion (S2) 5 Normal Extension (L3) 5 Normal Right Flexion (S2) 5 Normal Extension (L3) 5 Normal Ankle/Foot Strength Ankle and Foot Manual Muscle Testing Left Dorsiflexion (L4) 5 Normal Inversion 5 Normal Eversion (S1) 5 Normal Right Comments NT due to recent surgery and pain PT-OP-Q Treatments Start: 01/14/21 16:14 Freq: Status: Active Protocol: Document 02/07/21 09:48 SP (Rec: 02/07/21 11:59 SP [id number]) Cardio Equipment Recumbent Bicycle Duration (Minutes) 10 Resistance 3 Seat Position 7 Therapeutic Exercises Sitting Exercises ankle ROM over small kick ball Sitting Exercise Name PF, DF, IV, EV- added to HEP Side right Resistance AROM w/ stabilization alignment Reps/Minutes x10 each direction Comments challenged EV, cued contact knee for decrease add/abd compensations. arch lift Sitting Exercise Name toe curl and toe flat floor and arch lift Side right Resistance added to HEP- AROM seated and standing Reps/Minutes 5 sec hold x5 Comments cued as needed, improvement in arch lift w/out toe flexion 4 way ankle TB Sitting Exercise Name added to HEP Side right Resistance Tb #1, provided #2 and #3 to progress to Reps/Minutes x10 Comments cues as need for performance Foot hammock with band Sitting Exercise Name reviewed Comments Foot and AP with level 1 band Standing Exercises gait phases toe off and heel strict Standing Exercise Name wt shift prep and gait phases toe off and heel strike arch lift Standing Exercise Name added to HEP Reps/Minutes 5 sec hold x10 Comments improved ankle alignment PT-OP-T Assessment and Plan Start: 01/14/21 16:14 Freq: Status: Active Protocol: Document 02/07/21 09:48 SP (Rec: 02/07/21 11:59 SP [id number]) Physical Therapy Assessment Goals 5 Prison Goal (LTG) Pt will perform progressive HEP with I including balance, strengthening, flexibility, gait and aquatic exercises to improve range, pain and function by 03/17/21. LTG Duration 8 weeks 4 Prison Goal (LTG) Pt will demonstrate functional right ankle ROM and strength for gait without AD by . LTG Duration 8 weeks 3 Prison Goal (LTG) Pt will perform 4 stair ambulation with rails with mod I to allow safe home entry and negotiation by 03/17/21. LTG Duration 8 weeks 2 Prison Goal (LTG) Pt will perform WNLs on a standardized balance test to decrease fall risk by 03/17/21 . LTG Duration 8 weeks 1 Steam Train Driver Goal (LTG) Pt will gait train at least 1200 feet in 6 minutes with or without LRAD to improve community ambulation by . LTG Duration 8 weeks Assessment Summary Assessment Reviewed AROM previous HEP and initiated over small ball to assimulate BAPS board at home with fair performance, challenged with pronation/ EV ROM. Provided progressive Tb ex in sitting vs long sitting to decrease hip recruitment compensations. Initiated to toe off and eccentric PF heel strike wt shifts and discussed carry over into normalizing gait at home while can't attend. Pt reported understood all that reviewed and felt confident can perform at home until back and work into improving gait to allow return to work. See hand outs given. Physical Therapy Plan Frequency and Duration Frequency of Treatment 2x/Week Duration of Treatment 8 weeks Plan of Care Start Date 01/15/21 Plan of Care End Date 03/17/21 Therapeutic Interventions Therapeutic Interventions Aquatic Therapy,Balance Training,Gait Training,Home Exercise Program,Joint Mobilizations,Manual Therapy, Neuromuscular Re-education, Orthotic/Prosthetic Management ,Patient/Caregiver Education, Self-Care/Home Management,Soft Tissue Mobilization, Therapeutic Activities, Therapeutic Exercises Modalities Cold Pack/Ice Massage,Electric Stimulation,Hot Packs, Ultrasound Next Visit Focus/Plan Next Note Type Treatment Note Next Visit Plan Assess response to HEP review and progressive exerciess to allow improve stability, strength for gait. POC: Similar: Progress manual work, NO strecthing over a STEP, progress ankle ROM sitting with BAPS board and standing on mini tramp or blue cushion
--- NOTE | 2021-02-13 11:22 | PT.OTN ---
Current Diagnoses Juvenile osteochondrosis of tarsus, unspecified ankle (02/13/21) Physical Therapy Treatment Note PT-OP-A Visit Information Start: 01/14/21 16:14 Freq: Status: Active Protocol: Document 02/13/21 10:35 SP (Rec: 02/13/21 11:39 SP [id number]) Out-Patient Physical Therapy Visit Information Visit Information Visit Type Treatment Note Visit Note Pt states follows up with Dr Deng beginning of Mar. Visit Start Time 10:35 Visit Stop Time 11:22 Total Visit Minutes 47 Visit Number 12/28 Number of COMMERCIAL BANKER Visits 2 Evaluation Information Evaluation Date 01/15/21 Precautions Precautions 01/16/21: WBAT to the affected extremity with use of normal shoe. WB status should be progressed slowly with avoidance of high-impact activities and heavy lifting initially until further evaluation. Please focus on low impace stretching, proprioceptive and strengthening exercises. Pt is cleared for all physical therapy activities taking place in a pool. 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 When she went to bed, her foot hurt. In August, she went to Urgent Care, got a boot and then was referred to Dr. Deng . Pt dx with right Isaac's Deformity, bone spur and tears around achilles. She underwent bone spur removal, calf lengthening and achilles reattachement on . On 12/22/20, she bumped her right foot and her incision opened. It bled a lot and went to the ED. When she followed- up with the surgeon on the , she was told NWB with boot and crutches until 01/07/21 . On 01/07/21 appointment date, she was told she could do light WB with boot and crutches. She still uses her knee scooter. It is uncomfortable starting to WB on the foot. She doesn't want to injure the foot. It hurts to extend through the foot. She has two small children. She is frustrated because she cannot be active. Her fiance and mom help out. Her mom transports her to PT. She has three steps to enter the home. She is sitting on her butt to bump down the steps. Once she is in the house, she has her knee scooter and get around. PMH includes depression, gastric sleeve. Pt reports 4-5/10 right calf and heel pain. She is waking up at night when she bumps her foot. Treatment Goals Patient/Caregiver Goals To decrease pain and improve mobility PT-OP-C Subjective Start: 01/14/21 16:14 Freq: Status: Active Protocol: Document 02/13/21 10:35 SP (Rec: 02/13/21 11:39 SP [id number]) OP-PT Subjective Patient Comments Patient Comments Pt arrived antalgic gait, decreased stance time RLE, reports pretty sore. Was able to get handicap tag to allow tolerance of gait in community and use of power scooter for ability to get things needed and not cause increased pain and off set healing. Pt states is getting better quality gait especially when pays attention. Pt reminded won;t be back til 03/07 due to events confined to home out of her control. Patient Reported Progress Same PT-OP-G Mobility & Gait Start: 01/14/21 16:14 Freq: Status: Active Protocol: Document 01/15/21 09:02 MB (Rec: 01/15/21 14:26 MB [id number]) OP Gait Assessment Gait Gait Assistance Required: Independent Distance (Feet) 60 Able to Maintain Weight Bearing Status Yes During Gait Assistive Devices Assistive Device Axillary Crutches Orthotic/Prosthetic Devices or Brace: Yes Gait Deviations General Gait Pattern Antalgic,Decreased Stride Length,Decreased Feet Clearance,Flexed Trunk,Step-to Gait Factors Limiting Gait Function Factors Limiting Gait Function Decreased Activity Tolerance, Decreased Strength,Limited Range of Motion,Pain,Poor Balance Comments Gait Comments Pt arrives with axillary crutches that are short for her. She has boot donned on right foot and is WBTT with it and crutches. She states that surgeon cleared her for this light weight bearing with boot and crutches last week. She scoots right foot along the ground some with very limited WB with use of crutches for body weight support. Her gait is slow and antalgic. She likes crutches that height currently as it helps unweight her foot. PT does think that crutches could be raised at least one setting and ed pt this if she wants to try it at home. PT-OP-K Range of Motion Start: 01/14/21 16:14 Freq: Status: Active Protocol: Document 01/15/21 09:02 MB (Rec: 01/15/21 14:26 MB [id number]) Ankle and Foot Goniometric Range of Motion Ankle and Foot ROM Limitations Comments Right ankle: lacks 5 deg active DF, presents with 30 deg active PF, presents with 10 deg eversion and 25 deg inversion. Pt reports tape allergy in the hospital. She has scabs over distal right gastroc and over achilles and right LE edema and muscle wasting of distal LE musculature. Left foot and ankle are normal . PT-OP-M Strength Start: 01/14/21 16:14 Freq: Status: Active Protocol: Document 01/15/21 09:02 MB (Rec: 01/15/21 14:26 MB [id number]) Hip Strength Hip Manual Muscle Testing Left Flexion (L2) 5 Normal Abduction 5 Normal Adduction 5 Normal Right Flexion (L2) 5 Normal Abduction 5 Normal Adduction 5 Normal Knee Strength Knee Manual Muscle Testing Left Flexion (S2) 5 Normal Extension (L3) 5 Normal Right Flexion (S2) 5 Normal Extension (L3) 5 Normal Ankle/Foot Strength Ankle and Foot Manual Muscle Testing Left Dorsiflexion (L4) 5 Normal Inversion 5 Normal Eversion (S1) 5 Normal Right Comments NT due to recent surgery and pain PT-OP-Q Treatments Start: 01/14/21 16:14 Freq: Status: Active Protocol: Document 02/13/21 10:35 SP (Rec: 02/13/21 11:39 SP [id number]) Cardio Equipment Bicycle (Upright) Duration (Minutes) 5 Resistance 1 Seat Position 6 Other cued AROM Therapeutic Exercises Sitting Exercises rolling pin calf Sitting Exercise Name roll and saw rocking Side right Comments good feedback response, vs using hands massage BAPS Sitting Exercise Name PF, DF, IV, EV, CW, CCW Side right Resistance #2>#3 Reps/Minutes x10 reps each direction Comments sore but good work ankle ROM over small kick ball Sitting Exercise Name DC due to not feel same as BAPS and uncomfortable 4 way ankle TB Sitting Exercise Name Reviewed HEP Side right Resistance Tb #1, ( has #2 and #3 to progress) Reps/Minutes x10 each direction Comments cues as need for setup and performance Foot hammock with band Sitting Exercise Name reviewed HEP Comments Foot and AP with level 1 band Standing Exercises gait phases toe off and heel strict Standing Exercise Name wt shift prep and gait phases toe off and heel strike Resistance AROM Equipment Used mirror Reps/Minutes 20 ft x4 laps Comments f/b gait, core/ quad/ glut fac - decr lat wt shift improved ankle mob/ stab arch lift Standing Exercise Name reviewed HEP Side bilateral Reps/Minutes 5 sec hold x10 Comments improved ankle alignment Manual Therapy Treatment Joint Mobilizations Mobes Joint R talocrual PA, MTPs A<>P, med / lat calcaneus Grade II Body Position Supine Reps/Duration 3 min Comments manual with instruction self application, manual calf stretch PT-OP-T Assessment and Plan Start: 01/14/21 16:14 Freq: Status: Active Protocol: Document 02/13/21 10:35 SP (Rec: 02/13/21 11:39 SP [id number]) Physical Therapy Assessment Goals 5 Half-Way Goal (LTG) Pt will perform progressive HEP with I including balance, strengthening, flexibility, gait and aquatic exercises to improve range, pain and function by 03/17/21. LTG Duration 8 weeks 4 Double Surface Operator Goal (LTG) Pt will demonstrate functional right ankle ROM and strength for gait without AD by . LTG Duration 8 weeks 3 Half-Way Goal (LTG) Pt will perform 4 stair ambulation with rails with mod I to allow safe home entry and negotiation by 03/17/21. LTG Duration 8 weeks 2 Half-Way Goal (LTG) Pt will perform WNLs on a standardized balance test to decrease fall risk by 03/17/21 . LTG Duration 8 weeks 1 Half-Way Goal (LTG) Pt will gait train at least 1200 feet in 6 minutes with or without LRAD to improve community ambulation by . LTG Duration 8 weeks Assessment Summary Assessment Pt improved in demonstration of HEP, states sore but has been helpful for better balance walking. Still limited in endurance gait. Improved decreased lateral wt shift gait cues for core, glut, hip abd and level pelvis walking front mirror, noted improved heel lift and toe off RLE forward movement when focused on quality. Pt will not be able to attend tx til 03/07 but better understanding of HEP and how can progress HEP Tb if able, still #1 band due to weakness at this time. Physical Therapy Plan Frequency and Duration Frequency of Treatment 2x/Week Duration of Treatment 8 weeks Plan of Care Start Date 01/15/21 Plan of Care End Date 03/17/21 Therapeutic Interventions Therapeutic Interventions Aquatic Therapy,Balance Training,Gait Training,Home Exercise Program,Joint Mobilizations,Manual Therapy, Neuromuscular Re-education, Orthotic/Prosthetic Management ,Patient/Caregiver Education, Self-Care/Home Management,Soft Tissue Mobilization, Therapeutic Activities, Therapeutic Exercises Modalities Cold Pack/Ice Massage,Electric Stimulation,Hot Packs, Ultrasound Next Visit Focus/Plan Next Note Type Treatment Note Next Visit Plan Assess response to HEP review and progressive exerciess to allow improve stability, strength for gait. Next tx: standing on mini tramp or blue cushion for progress stabilization. POC: Progress manual work, NO strecthing over a STEP, progress ankle ROM sitting with BAPS board and
--- NOTE | 2021-03-14 13:46 | PT.OTN ---
Current Diagnoses Juvenile osteochondrosis of tarsus, unspecified ankle (03/14/21) Physical Therapy Treatment Note PT-OP-A Visit Information Start: 01/14/21 16:14 Freq: Status: Active Protocol: Document 03/14/21 13:03 SP (Rec: 03/14/21 16:36 SP [id number]) Out-Patient Physical Therapy Visit Information Visit Information Visit Type Treatment Note Visit Note Pt applying to dental hygenist program, less taxing on body. Visit Start Time 13:03 Visit Stop Time 13:46 Total Visit Minutes 43 Visit Number 01/28 Number of APPRENTICE ARCHITECT Visits 3 Evaluation Information Evaluation Date 01/15/21 Precautions Precautions 01/16/21: WBAT to the affected extremity with use of normal shoe. WB status should be progressed slowly with avoidance of high-impact activities and heavy lifting initially until further evaluation. Please focus on low impace stretching, proprioceptive and strengthening exercises. Pt is cleared for all physical therapy activities taking place in a pool. 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 When she went to bed, her foot hurt. In August, she went to Urgent Care, got a boot and then was referred to Dr. Deng . Pt dx with right Isaac's Deformity, bone spur and tears around achilles. She underwent bone spur removal, calf lengthening and achilles reattachement on . On 12/22/20, she bumped her right foot and her incision opened. It bled a lot and went to the ED. When she followed- up with the surgeon on the , she was told NWB with boot and crutches until 01/07/21 . On 01/07/21 appointment date, she was told she could do light WB with boot and crutches. She still uses her knee scooter. It is uncomfortable starting to WB on the foot. She doesn't want to injure the foot. It hurts to extend through the foot. She has two small children. She is frustrated because she cannot be active. Her fiance and mom help out. Her mom transports her to PT. She has three steps to enter the home. She is sitting on her butt to bump down the steps. Once she is in the house, she has her knee scooter and get around. PMH includes depression, gastric sleeve. Pt reports 4-5/10 right calf and heel pain. She is waking up at night when she bumps her foot. Treatment Goals Patient/Caregiver Goals To decrease pain and improve mobility PT-OP-C Subjective Start: 01/14/21 16:14 Freq: Status: Active Protocol: Document 03/14/21 13:03 SP (Rec: 03/14/21 16:36 SP [id number]) OP-PT Subjective Patient Comments Patient Comments Pt states was just released from Dr Deng to work 28hrs / week and standing allowed up to 30 min. Pt wants to focus on stair mgt, nervous on stairs at this time. PT-OP-G Mobility & Gait Start: 01/14/21 16:14 Freq: Status: Active Protocol: Document 01/15/21 09:02 MB (Rec: 01/15/21 14:26 MB [id number]) OP Gait Assessment Gait Gait Assistance Required: Independent Distance (Feet) 60 Able to Maintain Weight Bearing Status Yes During Gait Assistive Devices Assistive Device Axillary Crutches Orthotic/Prosthetic Devices or Brace: Yes Gait Deviations General Gait Pattern Antalgic,Decreased Stride Length,Decreased Feet Clearance,Flexed Trunk,Step-to Gait Factors Limiting Gait Function Factors Limiting Gait Function Decreased Activity Tolerance, Decreased Strength,Limited Range of Motion,Pain,Poor Balance Comments Gait Comments Pt arrives with axillary crutches that are short for her. She has boot donned on right foot and is WBTT with it and crutches. She states that surgeon cleared her for this light weight bearing with boot and crutches last week. She scoots right foot along the ground some with very limited WB with use of crutches for body weight support. Her gait is slow and antalgic. She likes crutches that height currently as it helps unweight her foot. PT does think that crutches could be raised at least one setting and ed pt this if she wants to try it at home. PT-OP-K Range of Motion Start: 01/14/21 16:14 Freq: Status: Active Protocol: Document 01/15/21 09:02 MB (Rec: 01/15/21 14:26 MB [id number]) Ankle and Foot Goniometric Range of Motion Ankle and Foot ROM Limitations Comments Right ankle: lacks 5 deg active DF, presents with 30 deg active PF, presents with 10 deg eversion and 25 deg inversion. Pt reports tape allergy in the hospital. She has scabs over distal right gastroc and over achilles and right LE edema and muscle wasting of distal LE musculature. Left foot and ankle are normal . PT-OP-M Strength Start: 01/14/21 16:14 Freq: Status: Active Protocol: Document 01/15/21 09:02 MB (Rec: 01/15/21 14:26 MB [id number]) Hip Strength Hip Manual Muscle Testing Left Flexion (L2) 5 Normal Abduction 5 Normal Adduction 5 Normal Right Flexion (L2) 5 Normal Abduction 5 Normal Adduction 5 Normal Knee Strength Knee Manual Muscle Testing Left Flexion (S2) 5 Normal Extension (L3) 5 Normal Right Flexion (S2) 5 Normal Extension (L3) 5 Normal Ankle/Foot Strength Ankle and Foot Manual Muscle Testing Left Dorsiflexion (L4) 5 Normal Inversion 5 Normal Eversion (S1) 5 Normal Right Comments NT due to recent surgery and pain PT-OP-Q Treatments Start: 01/14/21 16:14 Freq: Status: Active Protocol: Document 03/14/21 13:03 SP (Rec: 03/14/21 16:36 SP [id number]) Cardio Equipment Bicycle (Upright) Duration (Minutes) 5 Resistance 4 Seat Position 6 Other cued AROM Therapeutic Exercises Supine Exercises Core progression Supine Exercise Name TA draw in Side bilateral Reps/Minutes x5 reps each (DC bridge, to challenging) Comments heel slide, knee fall out w/ band, added SLR challenged but improved w/rep Sitting Exercises rolling pin calf Sitting Exercise Name roll and saw rocking Side right Reps/Minutes (performs at home) Comments good feedback response, vs using hands massage arch lift Sitting Exercise Name toe curl and toe flat floor and arch lift Side right Resistance AROM standing Reps/Minutes 5 sec hold x5 Comments cued as needed, improvement in arch lift w/out toe flexion 4 way ankle TB Sitting Exercise Name discussed no peformed , I at home Side right Resistance Tb #2 at home, not progressed to #3 yet. Reps/Minutes x10 each direction Standing Exercises gait phases toe off and heel strict Standing Exercise Name wt shift prep and gait phases toe off and heel strike Resistance AROM Equipment Used mirror Reps/Minutes 20 ft x4 laps Comments cued R knee flexion toe off Gait Training Gait Activity DGI Treatment Focus stability assessment functional mobility Comments stairs Device Used RHR> no HR SBA Level of Assistance Mod I R HR, SBA no support Distance/Duration 4 stairs x4 reps Treatment Focus eccentric DF, stability control Comments Pt able to ascend/ descend stairs with R HR, weak on eccentric DF on R during LLE transition to next step, ableto perform without HR very cautiously but recommended use of HR for safety and successful progress. Is painfree. 6MWT Description no AD Device Used 0 Level of Assistance Mod I Surface firm Distance/Duration 913 Treatment Focus endurance assessment, toe off quality Comments decreased toe off noted RLE Manual Therapy Treatment Soft Tissue Mobilization calf Comments STMs, tight medial soleus Manual and self sustained pressure with AP: good feedback results Joint Mobilizations Mobes Joint R talocrual PA, MTPs A<>P, med / lat calcaneus Grade II Body Position Supine Reps/Duration 3 min Comments manual with instruction self application, manual calf stretch PT-OP-T Assessment and Plan Start: 01/14/21 16:14 Freq: Status: Active Protocol: Document 03/14/21 13:03 SP (Rec: 03/14/21 16:36 SP [id number]) Physical Therapy Assessment Goals 5 Unit Aide Tech Goal (LTG) Pt will perform progressive HEP with I including balance, strengthening, flexibility, gait and aquatic exercises to improve range, pain and function by 03/17/21. 03/14/21: progressin way ankle TB, standing toe scrunches, LTG Duration 8 weeks 4 Unit Aide Tech Goal (LTG) Pt will demonstrate functional right ankle ROM and strength for gait without AD by . 03/14/21: progressing: able to walk without AD and demonstrates slight antalgic gait, ableto stand up to 30 min at a time. LTG Duration 8 weeks 3 Unit Aide Tech Goal (LTG) Pt will perform 4 stair ambulation with rails with mod I to allow safe home entry and negotiation by 03/17/21. 03/14/21: progressing: pt ableto ascend/descend 4 stairs R HR, weak R ankle stability into DF requires UE support. 03/14/21: progressing: LTG Duration 8 weeks 2 Unit Aide Tech Goal (LTG) Pt will perform WNLs on a standardized balance test to decrease fall risk by 03/17/21 . 03/14/21: DGI - lacking toe off challenges balance: speed decrease change and support required on stairs for safety. LTG Duration 8 weeks 1 Unit Aide Tech Goal (LTG) Pt will gait train at least 1200 feet in 6 minutes with or without LRAD to improve community ambulation by . 03/14/21: progressinft LTG Duration 8 weeks Assessment Summary Assessment Pt improved with gait distance ableto complete 6MWT 913 ft, DGI. Weakness in R ankle stability, lacking toe off ROM/strength. Improved with education and time spent slower pacing focus. Physical Therapy Plan Frequency and Duration Frequency of Treatment 2x/Week Duration of Treatment 8 weeks Plan of Care Start Date 01/15/21 Plan of Care End Date 03/17/21 Therapeutic Interventions Therapeutic Interventions Aquatic Therapy,Balance Training,Gait Training,Home Exercise Program,Joint Mobilizations,Manual Therapy, Neuromuscular Re-education, Orthotic/Prosthetic Management ,Patient/Caregiver Education, Self-Care/Home Management,Soft Tissue Mobilization, Therapeutic Activities, Therapeutic Exercises Modalities Cold Pack/Ice Massage,Electric Stimulation,Hot Packs, Ultrasound Next Visit Focus/Plan Next Note Type Treatment Note Next Visit Plan PN and POC updated next tx. Continue POC: progress standing on mini tramp or blue cushion for progress stabilization. Progress manual work, NO strecthing over a STEP. Add SLS, toe off strengthening mobility: chula stepping, uneven surface wt shift.
--- NOTE | 2021-03-21 12:13 | PT.OTN ---
Current Diagnoses Juvenile osteochondrosis of tarsus, unspecified ankle (03/21/21) Physical Therapy Treatment Note PT-OP-A Visit Information Start: 01/14/21 16:14 Freq: Status: Active Protocol: Document 03/21/21 09:47 MB (Rec: 03/21/21 10:25 MB [id number]) Out-Patient Physical Therapy Visit Information Visit Information Visit Type Progress Note Visit Start Time 09:47 Visit Stop Time 10:27 Total Visit Minutes 40 Visit Number 02/28 Number of ENVIRONMENTAL SOLUTIONS ENGINEER Visits 0 Evaluation Information Evaluation Date 01/15/21 Precautions Precautions 01/16/21: WBAT to the affected extremity with use of normal shoe. WB status should be progressed slowly with avoidance of high-impact activities and heavy lifting initially until further evaluation. Please focus on low impace stretching, proprioceptive and strengthening exercises. Pt is cleared for all physical therapy activities taking place in a pool. 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 When she went to bed, her foot hurt. In August, she went to Urgent Care, got a boot and then was referred to Dr. Deng . Pt dx with right Isaac's Deformity, bone spur and tears around achilles. She underwent bone spur removal, calf lengthening and achilles reattachement on . On 12/22/20, she bumped her right foot and her incision opened. It bled a lot and went to the ED. When she followed- up with the surgeon on the , she was told NWB with boot and crutches until 01/07/21 . On 01/07/21 appointment date, she was told she could do light WB with boot and crutches. She still uses her knee scooter. It is uncomfortable starting to WB on the foot. She doesn't want to injure the foot. It hurts to extend through the foot. She has two small children. She is frustrated because she cannot be active. Her fiance and mom help out. Her mom transports her to PT. She has three steps to enter the home. She is sitting on her butt to bump down the steps. Once she is in the house, she has her knee scooter and get around. PMH includes depression, gastric sleeve. Pt reports 4-5/10 right calf and heel pain. She is waking up at night when she bumps her foot. Treatment Goals Patient/Caregiver Goals To decrease pain and improve mobility PT-OP-C Subjective Start: 01/14/21 16:14 Freq: Status: Active Protocol: Document 03/21/21 09:47 MB (Rec: 03/21/21 10:25 MB [id number]) OP-PT Subjective Patient Comments Patient Comments Pt is driving up to 20-30 minutes. She returns to work on 03/26/21 and will not have to drive. She will work up to 6 hours and not have to drive. She will do office stuff. She will also look into dental hygienist certification. Pt went to the pool on Wednesday and ended up watching the kids who were playing. She did feel good walking in the pool. She does not know if her insurance is working or not. PT-OP-G Mobility & Gait Start: 01/14/21 16:14 Freq: Status: Active Protocol: Document 01/15/21 09:02 MB (Rec: 01/15/21 14:26 MB [id number]) OP Gait Assessment Gait Gait Assistance Required: Independent Distance (Feet) 60 Able to Maintain Weight Bearing Status Yes During Gait Assistive Devices Assistive Device Axillary Crutches Orthotic/Prosthetic Devices or Brace: Yes Gait Deviations General Gait Pattern Antalgic,Decreased Stride Length,Decreased Feet Clearance,Flexed Trunk,Step-to Gait Factors Limiting Gait Function Factors Limiting Gait Function Decreased Activity Tolerance, Decreased Strength,Limited Range of Motion,Pain,Poor Balance Comments Gait Comments Pt arrives with axillary crutches that are short for her. She has boot donned on right foot and is WBTT with it and crutches. She states that surgeon cleared her for this light weight bearing with boot and crutches last week. She scoots right foot along the ground some with very limited WB with use of crutches for body weight support. Her gait is slow and antalgic. She likes crutches that height currently as it helps unweight her foot. PT does think that crutches could be raised at least one setting and ed pt this if she wants to try it at home. PT-OP-K Range of Motion Start: 01/14/21 16:14 Freq: Status: Active Protocol: Document 01/15/21 09:02 MB (Rec: 01/15/21 14:26 MB [id number]) Ankle and Foot Goniometric Range of Motion Ankle and Foot ROM Limitations Comments Right ankle: lacks 5 deg active DF, presents with 30 deg active PF, presents with 10 deg eversion and 25 deg inversion. Pt reports tape allergy in the hospital. She has scabs over distal right gastroc and over achilles and right LE edema and muscle wasting of distal LE musculature. Left foot and ankle are normal . PT-OP-M Strength Start: 01/14/21 16:14 Freq: Status: Active Protocol: Document 01/15/21 09:02 MB (Rec: 01/15/21 14:26 MB [id number]) Hip Strength Hip Manual Muscle Testing Left Flexion (L2) 5 Normal Abduction 5 Normal Adduction 5 Normal Right Flexion (L2) 5 Normal Abduction 5 Normal Adduction 5 Normal Knee Strength Knee Manual Muscle Testing Left Flexion (S2) 5 Normal Extension (L3) 5 Normal Right Flexion (S2) 5 Normal Extension (L3) 5 Normal Ankle/Foot Strength Ankle and Foot Manual Muscle Testing Left Dorsiflexion (L4) 5 Normal Inversion 5 Normal Eversion (S1) 5 Normal Right Comments NT due to recent surgery and pain PT-OP-Q Treatments Start: 01/14/21 16:14 Freq: Status: Active Protocol: Document 03/21/21 09:47 MB (Rec: 03/21/21 10:25 MB [id number]) Cardio Equipment Recumbent Stepper (Sci-Fit) Duration (Minutes) 21 Resistance 5 Seat Position 11 Other LEs mostly Therapeutic Exercises Sitting Exercises LAQ with band Side bilateral Equipment Used Level 4 band Comments Several reps, alternating, AP with hold Clam Side bilateral Equipment Used Level 4 band around knees Comments 10 reps slowly, glute squeeze first Foot hammock with band Side right Equipment Used Level 4 band Comments Cues to keep resistance up on the band at all times, 10 reps Other Exercises HEP review Comments Verbally reviewed HEP for progress note Gait Training Gait Activity stairs Comments 4 steps with no rail or AD for ascend x2 and step-to gait and no rail descend and then 2 rails for step over step for descend PT-OP-T Assessment and Plan Start: 01/14/21 16:14 Freq: Status: Active Protocol: Document 03/21/21 09:47 MB (Rec: 03/21/21 10:25 MB [id number]) Physical Therapy Assessment Goals 5 Health Director Goal (LTG) Pt will perform progressive HEP with I including balance, strengthening, flexibility, gait and aquatic exercises to improve range, pain and function by 05/06/21. 03/21/21: Pt has gotten into the pool once, she is doing core but not bridge d/t back pain, she is doing some foot exercises, balance exercises, foot hammock, rolling pin, band hip and knee strengthening. LTG Duration 6 weeks 4 Health Director Goal (LTG) Pt will demonstrate functional right ankle ROM and strength for gait without AD by . 03/21/21: Pt has been walking without AD for a while. She wears slippers at home LTG Duration Met 3 Detention Goal (LTG) Pt will perform 4 stair ambulation with rails with mod I to allow safe home entry and negotiation by 05/06/21. 03/21/21: 4 steps with no rail or AD for ascend x2 and step- to gait and no rail descend and then 2 rails for step over step for descend LTG Duration Met 2 Detention Goal (LTG) Pt will perform WNLs on a standardized balance test to decrease fall risk by 05/06/21 . 03/14/21: DGI - lacking toe off challenges balance: speed decrease change and support required on stairs for safety. LTG Duration 6 weeks 1 Health Director Goal (LTG) Pt will gait train at least 1200 feet in 6 minutes without LRAD to improve community ambulation by 05/06/21. 03/14/21: progressinft without AD and wearing tall boots LTG Duration 6 weeks Assessment Summary Assessment Progress note today. Pt is able to gait without AD, is returning to work and is not having to drive and will work 6 hours and has been able to get in the pool once. She is performing exercises. Insurance may be an issue. Will set up appointments through April and monitor any issues. Re-ed pt to perform tandem with right foot behind to improve ankle reaction of right foot. Physical Therapy Plan Frequency and Duration Frequency of Treatment 1x/Week Duration of Treatment 6 weeks Plan of Care Start Date 03/21/21 Plan of Care End Date 05/06/21 Therapeutic Interventions Therapeutic Interventions Aquatic Therapy,Balance Training,Gait Training,Home Exercise Program,Joint Mobilizations,Manual Therapy, Neuromuscular Re-education, Orthotic/Prosthetic Management ,Patient/Caregiver Education, Self-Care/Home Management,Soft Tissue Mobilization, Therapeutic Activities, Therapeutic Exercises Modalities Cold Pack/Ice Massage,Electric Stimulation,Hot Packs, Ultrasound Next Visit Focus/Plan Next Note Type Treatment Note Next Visit Plan Con't to work on step-through gait. Progress standing on mini tramp or blue cushion for progress stabilization. Progress manual work, NO strecthing over a STEP. Add SLS, toe off strengthening mobility: chula stepping, uneven surface wt shift.
--- NOTE | 2021-03-21 12:13 | PT.OPPOC ---
Physical, Occupational & Speech Therapy At [facility] Current Diagnoses Juvenile osteochondrosis of tarsus, unspecified ankle (03/21/21) Visit Care Team Role Provider Type Marco Antonio Ac MD Family Provider Non-Staff Primary Care Provider Specialty: Family Practice Address: [address] [place] [address], [id number] Email: Donny Deng DPM Attending Provider Non-Staff Referring Provider Specialty: Podiatry Address: [address] [place] [address], [phone] Email: Plan Of Care PT-OP-T Assessment and Plan Start: 01/14/21 16:14 Freq: Status: Active Protocol: Document 03/21/21 09:47 MB (Rec: 03/21/21 10:25 MB [id number]) Physical Therapy Assessment Goals 5 Mill Machinist Goal (LTG) Pt will perform progressive HEP with I including balance, strengthening, flexibility, gait and aquatic exercises to improve range, pain and function by 05/06/21. 03/21/21: Pt has gotten into the pool once, she is doing core but not bridge d/t back pain, she is doing some foot exercises, balance exercises, foot hammock, rolling pin, band hip and knee strengthening. LTG Duration 6 weeks 4 Intermediate Goal (LTG) Pt will demonstrate functional right ankle ROM and strength for gait without AD by . 03/21/21: Pt has been walking without AD for a while. She wears slippers at home LTG Duration Met 3 Intermediate Goal (LTG) Pt will perform 4 stair ambulation with rails with mod I to allow safe home entry and negotiation by 05/06/21. 03/21/21: 4 steps with no rail or AD for ascend x2 and step- to gait and no rail descend and then 2 rails for step over step for descend LTG Duration Met 2 Mill Machinist Goal (LTG) Pt will perform WNLs on a standardized balance test to decrease fall risk by 05/06/21 . 03/14/21: DGI 20/24- lacking toe off challenges balance: speed decrease change and support required on stairs for safety. LTG Duration 6 weeks 1 Intermediate Goal (LTG) Pt will gait train at least 1200 feet in 6 minutes without LRAD to improve community ambulation by 05/06/21. 03/14/21: progressinft without AD and wearing tall boots LTG Duration 6 weeks Assessment Summary Assessment Progress note today. Pt is able to gait without AD, is returning to work and is not having to drive and will work 6 hours and has been able to get in the pool once. She is performing exercises. Insurance may be an issue. Will set up appointments through April and monitor any issues. Re-ed pt to perform tandem with right foot behind to improve ankle reaction of right foot. Physical Therapy Plan Frequency and Duration Frequency of Treatment 1x/Week Duration of Treatment 6 weeks Plan of Care Start Date 03/21/21 Plan of Care End Date 05/06/21 Therapeutic Interventions Therapeutic Interventions Aquatic Therapy,Balance Training,Gait Training,Home Exercise Program,Joint Mobilizations,Manual Therapy, Neuromuscular Re-education, Orthotic/Prosthetic Management ,Patient/Caregiver Education, Self-Care/Home Management,Soft Tissue Mobilization, Therapeutic Activities, Therapeutic Exercises Modalities Cold Pack/Ice Massage,Electric Stimulation,Hot Packs, Ultrasound Next Visit Focus/Plan Next Note Type Treatment Note Next Visit Plan Con't to work on step-through gait. Progress standing on mini tramp or blue cushion for progress stabilization. Progress manual work, NO strecthing over a STEP. Add SLS, toe off strengthening mobility: chula stepping, uneven surface wt shift. Plan of Care Dates Plan of Care Start Date 03/21/21 Plan of Care End Date 05/06/21 Electronically Signed by: Charito Hastings PT 03/21/21 2628 Please Sign and Return: I have reviewed this Plan of Care and certify that the skilled therapy services above are required to meet the patient?s needs. Physician Signature Date Printed Name and Credentials Clinical Instructor Signature Printed Name and Credentials
--- NOTE | 2021-03-28 10:30 | PT.OTN ---
Current Diagnoses Juvenile osteochondrosis of tarsus, unspecified ankle (03/28/21) Physical Therapy Treatment Note PT-OP-A Visit Information Start: 01/14/21 16:14 Freq: Status: Active Protocol: Document 03/28/21 09:46 MB (Rec: 03/28/21 10:29 MB [id number]) Out-Patient Physical Therapy Visit Information Visit Information Visit Type Treatment Note Visit Start Time 09:46 Visit Stop Time 10:30 Total Visit Minutes 44 Visit Number 03/30 Evaluation Information Evaluation Date 01/15/21 Precautions Precautions 01/16/21: WBAT to the affected extremity with use of normal shoe. WB status should be progressed slowly with avoidance of high-impact activities and heavy lifting initially until further evaluation. Please focus on low impace stretching, proprioceptive and strengthening exercises. Pt is cleared for all physical therapy activities taking place in a pool. 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 When she went to bed, her foot hurt. In August, she went to Urgent Care, got a boot and then was referred to Dr. Deng . Pt dx with right Isaac's Deformity, bone spur and tears around achilles. She underwent bone spur removal, calf lengthening and achilles reattachement on . On 12/22/20, she bumped her right foot and her incision opened. It bled a lot and went to the ED. When she followed- up with the surgeon on the , she was told NWB with boot and crutches until 01/07/21 . On 01/07/21 appointment date, she was told she could do light WB with boot and crutches. She still uses her knee scooter. It is uncomfortable starting to WB on the foot. She doesn't want to injure the foot. It hurts to extend through the foot. She has two small children. She is frustrated because she cannot be active. Her fiance and mom help out. Her mom transports her to PT. She has three steps to enter the home. She is sitting on her butt to bump down the steps. Once she is in the house, she has her knee scooter and get around. PMH includes depression, gastric sleeve. Pt reports 4-5/10 right calf and heel pain. She is waking up at night when she bumps her foot. Treatment Goals Patient/Caregiver Goals To decrease pain and improve mobility PT-OP-C Subjective Start: 01/14/21 16:14 Freq: Status: Active Protocol: Document 03/28/21 09:46 MB (Rec: 03/28/21 10:29 MB [id number]) OP-PT Subjective Patient Comments Patient Comments Pt states that she quit her job. Her insurance ends on and she will cancel appointments after that. PT-OP-G Mobility & Gait Start: 01/14/21 16:14 Freq: Status: Active Protocol: Document 01/15/21 09:02 MB (Rec: 01/15/21 14:26 MB [id number]) OP Gait Assessment Gait Gait Assistance Required: Independent Distance (Feet) 60 Able to Maintain Weight Bearing Status Yes During Gait Assistive Devices Assistive Device Axillary Crutches Orthotic/Prosthetic Devices or Brace: Yes Gait Deviations General Gait Pattern Antalgic,Decreased Stride Length,Decreased Feet Clearance,Flexed Trunk,Step-to Gait Factors Limiting Gait Function Factors Limiting Gait Function Decreased Activity Tolerance, Decreased Strength,Limited Range of Motion,Pain,Poor Balance Comments Gait Comments Pt arrives with axillary crutches that are short for her. She has boot donned on right foot and is WBTT with it and crutches. She states that surgeon cleared her for this light weight bearing with boot and crutches last week. She scoots right foot along the ground some with very limited WB with use of crutches for body weight support. Her gait is slow and antalgic. She likes crutches that height currently as it helps unweight her foot. PT does think that crutches could be raised at least one setting and ed pt this if she wants to try it at home. PT-OP-K Range of Motion Start: 01/14/21 16:14 Freq: Status: Active Protocol: Document 01/15/21 09:02 MB (Rec: 01/15/21 14:26 MB [id number]) Ankle and Foot Goniometric Range of Motion Ankle and Foot ROM Limitations Comments Right ankle: lacks 5 deg active DF, presents with 30 deg active PF, presents with 10 deg eversion and 25 deg inversion. Pt reports tape allergy in the hospital. She has scabs over distal right gastroc and over achilles and right LE edema and muscle wasting of distal LE musculature. Left foot and ankle are normal . PT-OP-M Strength Start: 01/14/21 16:14 Freq: Status: Active Protocol: Document 01/15/21 09:02 MB (Rec: 01/15/21 14:26 MB [id number]) Hip Strength Hip Manual Muscle Testing Left Flexion (L2) 5 Normal Abduction 5 Normal Adduction 5 Normal Right Flexion (L2) 5 Normal Abduction 5 Normal Adduction 5 Normal Knee Strength Knee Manual Muscle Testing Left Flexion (S2) 5 Normal Extension (L3) 5 Normal Right Flexion (S2) 5 Normal Extension (L3) 5 Normal Ankle/Foot Strength Ankle and Foot Manual Muscle Testing Left Dorsiflexion (L4) 5 Normal Inversion 5 Normal Eversion (S1) 5 Normal Right Comments NT due to recent surgery and pain PT-OP-Q Treatments Start: 01/14/21 16:14 Freq: Status: Active Protocol: Document 03/28/21 09:46 MB (Rec: 03/28/21 10:29 MB [id number]) Cardio Equipment Recumbent Stepper (Sci-Fit) Duration (Minutes) 13 Resistance 5 Seat Position 10 Other LEs and UEs Neuro Re-Education Treatment Balance Activities Mini tramp balance Comments In socks, bouncing, static standing, superv to SBA Bouncing in Romberg with superv Tandem statically with superv B Tossing ball Comments In socks and standing on blue cushion in tandem: tossing blue ball with PT as PT walks right and left Romberg and Tandem Comments In // bars, pt wearing socks: on carpet, Tandem with right foot behind with superv and pt occ put hands on // bars On blue cushion: Romberg, static standing and tandem with left foot behind--superv and occ reaches for rail PT-OP-T Assessment and Plan Start: 01/14/21 16:14 Freq: Status: Active Protocol: Document 03/28/21 09:46 MB (Rec: 03/28/21 10:29 MB [id number]) Physical Therapy Assessment Goals 5 Bridge Expert Goal (LTG) Pt will perform progressive HEP with I including balance, strengthening, flexibility, gait and aquatic exercises to improve range, pain and function by 05/06/21. 03/21/21: Pt has gotten into the pool once, she is doing core but not bridge d/t back pain, she is doing some foot exercises, balance exercises, foot hammock, rolling pin, band hip and knee strengthening. LTG Duration 6 weeks 2 Nursing Home Goal (LTG) Pt will perform WNLs on a standardized balance test to decrease fall risk by 05/06/21 . 03/14/21: DGI - lacking toe off challenges balance: speed decrease change and support required on stairs for safety. LTG Duration 6 weeks 1 Bridge Expert Goal (LTG) Pt will gait train at least 1200 feet in 6 minutes without LRAD to improve community ambulation by 05/06/21. 03/14/21: progressinft without AD and wearing tall boots LTG Duration 6 weeks Assessment Summary Assessment Pt finds out more about insurance and it will cancel the end of the month. Will schedule two more appointments next week. Will revise her HEP and prepare for d/c next week. Physical Therapy Plan Frequency and Duration Frequency of Treatment 1x/Week Duration of Treatment 6 weeks Plan of Care Start Date 03/21/21 Plan of Care End Date 05/06/21 Therapeutic Interventions Therapeutic Interventions Aquatic Therapy,Balance Training,Gait Training,Home Exercise Program,Joint Mobilizations,Manual Therapy, Neuromuscular Re-education, Orthotic/Prosthetic Management ,Patient/Caregiver Education, Self-Care/Home Management,Soft Tissue Mobilization, Therapeutic Activities, Therapeutic Exercises Modalities Cold Pack/Ice Massage,Electric Stimulation,Hot Packs, Ultrasound Next Visit Focus/Plan Next Note Type Treatment Note Next Visit Plan Pt to bring in HEP handouts and will review and revise HEP
--- NOTE | 2021-04-02 11:12 | PT.OTN ---
Current Diagnoses Juvenile osteochondrosis of tarsus, unspecified ankle (04/02/21) Physical Therapy Treatment Note PT-OP-A Visit Information Start: 01/14/21 16:14 Freq: Status: Active Protocol: Document 04/02/21 10:32 MB (Rec: 04/02/21 11:12 MB [id number]) Out-Patient Physical Therapy Visit Information Visit Information Visit Type Treatment Note Visit Start Time 10:32 Visit Stop Time 11:12 Total Visit Minutes 40 Visit Number 04/30 Evaluation Information Evaluation Date 01/15/21 Precautions Precautions 01/16/21: WBAT to the affected extremity with use of normal shoe. WB status should be progressed slowly with avoidance of high-impact activities and heavy lifting initially until further evaluation. Please focus on low impace stretching, proprioceptive and strengthening exercises. Pt is cleared for all physical therapy activities taking place in a pool. 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 When she went to bed, her foot hurt. In August, she went to Urgent Care, got a boot and then was referred to Dr. Deng . Pt dx with right Isaac's Deformity, bone spur and tears around achilles. She underwent bone spur removal, calf lengthening and achilles reattachement on . On 12/22/20, she bumped her right foot and her incision opened. It bled a lot and went to the ED. When she followed- up with the surgeon on the , she was told NWB with boot and crutches until 01/07/21 . On 01/07/21 appointment date, she was told she could do light WB with boot and crutches. She still uses her knee scooter. It is uncomfortable starting to WB on the foot. She doesn't want to injure the foot. It hurts to extend through the foot. She has two small children. She is frustrated because she cannot be active. Her fiance and mom help out. Her mom transports her to PT. She has three steps to enter the home. She is sitting on her butt to bump down the steps. Once she is in the house, she has her knee scooter and get around. PMH includes depression, gastric sleeve. Pt reports 4-5/10 right calf and heel pain. She is waking up at night when she bumps her foot. Treatment Goals Patient/Caregiver Goals To decrease pain and improve mobility PT-OP-C Subjective Start: 01/14/21 16:14 Freq: Status: Active Protocol: Document 04/02/21 10:32 MB (Rec: 04/02/21 11:12 MB [id number]) OP-PT Subjective Patient Comments Patient Comments Pt states that she has been doing a detox bath and massaging her ankles. 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 PT-OP-G Mobility & Gait Start: 01/14/21 16:14 Freq: Status: Active Protocol: Document 01/15/21 09:02 MB (Rec: 01/15/21 14:26 MB [id number]) OP Gait Assessment Gait Gait Assistance Required: Independent Distance (Feet) 60 Able to Maintain Weight Bearing Status Yes During Gait Assistive Devices Assistive Device Axillary Crutches Orthotic/Prosthetic Devices or Brace: Yes Gait Deviations General Gait Pattern Antalgic,Decreased Stride Length,Decreased Feet Clearance,Flexed Trunk,Step-to Gait Factors Limiting Gait Function Factors Limiting Gait Function Decreased Activity Tolerance, Decreased Strength,Limited Range of Motion,Pain,Poor Balance Comments Gait Comments Pt arrives with axillary crutches that are short for her. She has boot donned on right foot and is WBTT with it and crutches. She states that surgeon cleared her for this light weight bearing with boot and crutches last week. She scoots right foot along the ground some with very limited WB with use of crutches for body weight support. Her gait is slow and antalgic. She likes crutches that height currently as it helps unweight her foot. PT does think that crutches could be raised at least one setting and ed pt this if she wants to try it at home. PT-OP-K Range of Motion Start: 01/14/21 16:14 Freq: Status: Active Protocol: Document 01/15/21 09:02 MB (Rec: 01/15/21 14:26 MB [id number]) Ankle and Foot Goniometric Range of Motion Ankle and Foot ROM Limitations Comments Right ankle: lacks 5 deg active DF, presents with 30 deg active PF, presents with 10 deg eversion and 25 deg inversion. Pt reports tape allergy in the hospital. She has scabs over distal right gastroc and over achilles and right LE edema and muscle wasting of distal LE musculature. Left foot and ankle are normal . PT-OP-M Strength Start: 01/14/21 16:14 Freq: Status: Active Protocol: Document 01/15/21 09:02 MB (Rec: 01/15/21 14:26 MB [id number]) Hip Strength Hip Manual Muscle Testing Left Flexion (L2) 5 Normal Abduction 5 Normal Adduction 5 Normal Right Flexion (L2) 5 Normal Abduction 5 Normal Adduction 5 Normal Knee Strength Knee Manual Muscle Testing Left Flexion (S2) 5 Normal Extension (L3) 5 Normal Right Flexion (S2) 5 Normal Extension (L3) 5 Normal Ankle/Foot Strength Ankle and Foot Manual Muscle Testing Left Dorsiflexion (L4) 5 Normal Inversion 5 Normal Eversion (S1) 5 Normal Right Comments NT due to recent surgery and pain PT-OP-Q Treatments Start: 01/14/21 16:14 Freq: Status: Active Protocol: Document 04/02/21 10:32 MB (Rec: 04/02/21 11:12 MB [id number]) Cardio Equipment Recumbent Stepper (Sci-Fit) Duration (Minutes) 13 Resistance 7 Seat Position 10 Other LEs and UEs Therapeutic Exercises Supine Exercises Core progression Comments Pt is performing all but bridge exercise Hamstring stretch with AP Comments Pt is performing at home Sitting Exercises Gastroc MWM Comments MWM with racquet ball under calf and pt pumping foot up and down Plantar fascia massage Comments Racquet ball under foot Ankle DF and eversion Side bilateral Comments Level 2 band around feet, 10 reps LAQ with band Side bilateral Equipment Used Level 3 band around ankles Comments Leg straight and AP, 5 reps Clam Side bilateral Equipment Used Level 4 band around knees, 10 reps slow in and out Foot hammock with band Comments Pt is performing with level 4 band at home Other Exercises HEP review Comments Revised HEP and removed several handouts and exercises that are too easy Pool program Comments Reviewed today Neuro Re-Education Treatment Balance Activities Romberg and Tandem Comments Next to ballet bar in gym, tandem in socks up to 1-2 minutes and more ankle movement with left foot behind PT-OP-T Assessment and Plan Start: 01/14/21 16:14 Freq: Status: Active Protocol: Document 04/02/21 10:32 MB (Rec: 04/02/21 11:12 MB [id number]) Physical Therapy Assessment Goals 5 Senior Planning Analyst Goal (LTG) Pt will perform progressive HEP with I including balance, strengthening, flexibility, gait and aquatic exercises to improve range, pain and function by 05/06/21. 03/21/21: Pt has gotten into the pool once, she is doing core but not bridge d/t back pain, she is doing some foot exercises, balance exercises, foot hammock, rolling pin, band hip and knee strengthening. LTG Duration 6 weeks 2 Senior Planning Analyst Goal (LTG) Pt will perform WNLs on a standardized balance test to decrease fall risk by 05/06/21 . 03/14/21: DGI - lacking toe off challenges balance: speed decrease change and support required on stairs for safety. LTG Duration 6 weeks 1 Senior Planning Analyst Goal (LTG) Pt will gait train at least 1200 feet in 6 minutes without LRAD to improve community ambulation by 05/06/21. 03/14/21: progressinft without AD and wearing tall boots LTG Duration 6 weeks Assessment Summary Assessment Reviewed and revised all exercises today and added self -massage for plantar fascia, calf and ankle strengthening. Anticipate prepare for d/c next treatment date. She is already doing toe exercises and will be getting into the pool more next week. Physical Therapy Plan Frequency and Duration Frequency of Treatment 1x/Week Duration of Treatment 6 weeks Plan of Care Start Date 03/21/21 Plan of Care End Date 05/06/21 Therapeutic Interventions Therapeutic Interventions Aquatic Therapy,Balance Training,Gait Training,Home Exercise Program,Joint Mobilizations,Manual Therapy, Neuromuscular Re-education, Orthotic/Prosthetic Management ,Patient/Caregiver Education, Self-Care/Home Management,Soft Tissue Mobilization, Therapeutic Activities, Therapeutic Exercises Modalities Cold Pack/Ice Massage,Electric Stimulation,Hot Packs, Ultrasound Next Visit Focus/Plan Next Note Type Discharge Summary
--- NOTE | 2021-04-04 15:24 | PT.OTN ---
Current Diagnoses Juvenile osteochondrosis of tarsus, unspecified ankle (04/04/21) Physical Therapy Treatment Note PT-OP-A Visit Information Start: 01/14/21 16:14 Freq: Status: Active Protocol: Document 04/04/21 09:46 MB (Rec: 04/04/21 10:30 MB [id number]) Out-Patient Physical Therapy Visit Information Visit Information Visit Type Treatment Note Visit Start Time 09:46 Visit Stop Time 10:28 Total Visit Minutes 42 Visit Number 05/30 Evaluation Information Evaluation Date 01/15/21 Precautions Precautions 01/16/21: WBAT to the affected extremity with use of normal shoe. WB status should be progressed slowly with avoidance of high-impact activities and heavy lifting initially until further evaluation. Please focus on low impace stretching, proprioceptive and strengthening exercises. Pt is cleared for all physical therapy activities taking place in a pool. 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 When she went to bed, her foot hurt. In August, she went to Urgent Care, got a boot and then was referred to Dr. Deng . Pt dx with right Isaac's Deformity, bone spur and tears around achilles. She underwent bone spur removal, calf lengthening and achilles reattachement on . On 12/22/20, she bumped her right foot and her incision opened. It bled a lot and went to the ED. When she followed- up with the surgeon on the , she was told NWB with boot and crutches until 01/07/21 . On 01/07/21 appointment date, she was told she could do light WB with boot and crutches. She still uses her knee scooter. It is uncomfortable starting to WB on the foot. She doesn't want to injure the foot. It hurts to extend through the foot. She has two small children. She is frustrated because she cannot be active. Her fiance and mom help out. Her mom transports her to PT. She has three steps to enter the home. She is sitting on her butt to bump down the steps. Once she is in the house, she has her knee scooter and get around. PMH includes depression, gastric sleeve. Pt reports 4-5/10 right calf and heel pain. She is waking up at night when she bumps her foot. Treatment Goals Patient/Caregiver Goals To decrease pain and improve mobility PT-OP-C Subjective Start: 01/14/21 16:14 Freq: Status: Active Protocol: Document 04/04/21 09:46 MB (Rec: 04/04/21 10:30 MB [id number]) OP-PT Subjective Patient Comments Patient Comments Pt had a job interview and is waiting to hear back. PT-OP-G Mobility & Gait Start: 01/14/21 16:14 Freq: Status: Active Protocol: Document 01/15/21 09:02 MB (Rec: 01/15/21 14:26 MB [id number]) OP Gait Assessment Gait Gait Assistance Required: Independent Distance (Feet) 60 Able to Maintain Weight Bearing Status Yes During Gait Assistive Devices Assistive Device Axillary Crutches Orthotic/Prosthetic Devices or Brace: Yes Gait Deviations General Gait Pattern Antalgic,Decreased Stride Length,Decreased Feet Clearance,Flexed Trunk,Step-to Gait Factors Limiting Gait Function Factors Limiting Gait Function Decreased Activity Tolerance, Decreased Strength,Limited Range of Motion,Pain,Poor Balance Comments Gait Comments Pt arrives with axillary crutches that are short for her. She has boot donned on right foot and is WBTT with it and crutches. She states that surgeon cleared her for this light weight bearing with boot and crutches last week. She scoots right foot along the ground some with very limited WB with use of crutches for body weight support. Her gait is slow and antalgic. She likes crutches that height currently as it helps unweight her foot. PT does think that crutches could be raised at least one setting and ed pt this if she wants to try it at home. PT-OP-K Range of Motion Start: 01/14/21 16:14 Freq: Status: Active Protocol: Document 01/15/21 09:02 MB (Rec: 01/15/21 14:26 MB [id number]) Ankle and Foot Goniometric Range of Motion Ankle and Foot ROM Limitations Comments Right ankle: lacks 5 deg active DF, presents with 30 deg active PF, presents with 10 deg eversion and 25 deg inversion. Pt reports tape allergy in the hospital. She has scabs over distal right gastroc and over achilles and right LE edema and muscle wasting of distal LE musculature. Left foot and ankle are normal . PT-OP-M Strength Start: 01/14/21 16:14 Freq: Status: Active Protocol: Document 01/15/21 09:02 MB (Rec: 01/15/21 14:26 MB [id number]) Hip Strength Hip Manual Muscle Testing Left Flexion (L2) 5 Normal Abduction 5 Normal Adduction 5 Normal Right Flexion (L2) 5 Normal Abduction 5 Normal Adduction 5 Normal Knee Strength Knee Manual Muscle Testing Left Flexion (S2) 5 Normal Extension (L3) 5 Normal Right Flexion (S2) 5 Normal Extension (L3) 5 Normal Ankle/Foot Strength Ankle and Foot Manual Muscle Testing Left Dorsiflexion (L4) 5 Normal Inversion 5 Normal Eversion (S1) 5 Normal Right Comments NT due to recent surgery and pain PT-OP-Q Treatments Start: 01/14/21 16:14 Freq: Status: Active Protocol: Document 04/04/21 09:46 MB (Rec: 04/04/21 10:30 MB [id number]) Cardio Equipment Recumbent Stepper (Sci-Fit) Duration (Minutes) 12 Resistance 7 Seat Position 10 Other LEs only Gait Training Gait Activity 6MWT Comments 04/04/21: Pt gait trains 1110 feet in her athletic shoes today. Pt's gait is slower and she has decreased heel strike and toe off on the right compared to left Manual Therapy Treatment Other Other Manual Treatments STM right gastroc soleus and scars Neuro Re-Education Treatment Balance Activities FGA Comments 04/04/21: FGA score is 28/30 with only trouble with picking up gait speed and shorter and slower steps with backwards stepping PT-OP-T Assessment and Plan Start: 01/14/21 16:14 Freq: Status: Active Protocol: Document 04/04/21 09:46 MB (Rec: 04/04/21 10:30 MB [id number]) Physical Therapy Assessment Goals 5 Recovery Room Rn Goal (LTG) Pt will perform progressive HEP with I including balance, strengthening, flexibility, gait and aquatic exercises to improve range, pain and function by 05/06/21. 03/21/21: Pt has gotten into the pool once, she is doing core but not bridge d/t back pain, she is doing some foot exercises, balance exercises, foot hammock, rolling pin, band hip and knee strengthening. 04/04/21: Pt is performing progressive HEP including flexibility, strengthening, balance and aquatic exercises. LTG Duration Met 2 Recovery Room Rn Goal (LTG) Pt will perform WNLs on a standardized balance test to decrease fall risk by 05/06/21 . 04/04/21: FGA score is 28/30 with only trouble with picking up gait speed and shorter and slower steps with backwards stepping LTG Duration Met 1 Recovery Room Rn Goal (LTG) Pt will gait train at least 1200 feet in 6 minutes without LRAD to improve community ambulation by 05/06/21. 04/04/21: Pt gait trains 1110 feet in her athletic shoes today. 03/14/21: 913ft without AD and wearing tall boots LTG Duration Progressed towards goal Assessment Summary Assessment Pt has met balance and HEP goals since last progress note . She has progressed well towards 6MWT goal wearing athletic shoes today. Pt's insurance is stopping in two days and will need to d/c at this time. She will con't with PT exercises and aquatic exercises. Will d/c PT.
== END 2021-04-17 14:07 ==
LOC: PHYS 09:45
PROVIDERS: Family Provider Family Medicine Sports Medicine; PCP Family Medicine Sports Medicine; Referring Provider Podiatrist Foot & Ankle Surgery; Visit Provider Podiatrist Foot & Ankle Surgery
DX: M92.60 Juvenile osteochondrosis of tarsus, unspecified ankle (principal)
CPT/HCPCS: 97110; 97112; 97116; 97140; 97161; 97535

== ENCOUNTER 2022-09-07 09:45 | Outpatient (RCR) | payer OTHER, MEDICAID, SELFPAY ==
--- NOTE | 2022-05-20 15:59 | PT.OIE ---
Current Diagnoses Unspecified injury of right Achilles tendon, initial encounter (05/20/22) Visit Care Team Role Provider Type Ronald Braswell PA-C Family Provider Non-Staff Primary Care Provider Specialty: Medical Address: [address] [place] [address], [id number] Email: Donny Deng DPM Attending Provider Non-Staff Referring Provider Specialty: Podiatry Address: [address] [place] [address], [phone] Email: Physical Therapy Initial Evaluation PT-OP-A Visit Information Start: 05/20/22 11:19 Freq: Status: Active Protocol: Document 05/20/22 11:20 AMB (Rec: 05/20/22 11:33 AMB [id number]) Out-Patient Physical Therapy Visit Information Visit Information Visit Type Initial Evaluation Visit Start Time 11:15 Visit Stop Time 12:00 Total Visit Minutes 45 Visit Number 1 PT-OP-B Current Condition Start: 05/20/22 11:19 Freq: Status: Active Protocol: Document 05/20/22 11:20 AMB (Rec: 05/20/22 11:33 AMB [id number]) Current Condition History of Current Condition Onset Date 03/20/21 Current Complaints R achilles repair History of Current Condition December of 2020 had first surgery , did PT, went back to work. Was on feet 40 hrs/week and pain increased significantly. Had second surgery 2 months ago, WBAT d/eduar walking boot 2 weeks ago, has not yet returned to work. Goals of being on the trampoline, running after kids. A little bit sore at the end of the day . Hasn't been working for almost a year because of the pain. Is wearing tennis shoes and a compression sock, no AD. Prior Functional Status Baseline Function- ADL's Independent Baseline Function- Mobility Independent Current Functional Impairments (Reported) Functional Limitations- ADL's difficulty walking, keeping up with kids Personal Factors Other Personal Factors That May Effect Asthma, hx gallbladder 2006, Therapy/Recovery hx weightloss surgery PT-OP-C Subjective Start: 05/20/22 11:19 Freq: Status: Active Protocol: Document 05/20/22 11:15 AMB (Rec: 05/20/22 15:16 AMB [id number]) Patient Questionnaires Foot & Ankle Ability Measure- ADL and Sports FAAM-ADL Score 64 Lower Extremity Functional Scale LEFS Score 49 LEFS Impairment 20 to 39% Impaired (Score 48- 62) OP-PT Pain Assessment Comments Pain Comments 1/10 pain at ankle PT-OP-D Balance Start: 05/20/22 11:43 Freq: Status: Active Protocol: Document 05/20/22 11:15 AMB (Rec: 05/22/22 15:40 AMB [id number]) Balance Tests Single Limb Standing Single Limb- Right 5 PT-OP-J Posture/Palpation/Skin Start: 05/20/22 11:43 Freq: Status: Active Protocol: Document 05/20/22 11:15 AMB (Rec: 05/22/22 15:40 AMB [id number]) Skin Assessment Incisional Assessment Incision Appearance/Comments swelling at achilles palpable, scar from most recent surgery healing well, there is also a scar from previous surgery and from a recent large blister. PT-OP-K Range of Motion Start: 05/20/22 11:19 Freq: Status: Active Protocol: Document 05/20/22 11:15 AMB (Rec: 05/20/22 12:08 AMB [id number]) Ankle and Foot Goniometric Range of Motion Ankle and Foot Right Active Testing Position Sitting Dorsiflexion with Knee Flexed 5 Plantarflexion 50 PT-OP-M Strength Start: 05/20/22 11:43 Freq: Status: Active Protocol: Document 05/20/22 11:15 AMB (Rec: 05/20/22 12:08 AMB [id number]) Ankle/Foot Strength Ankle and Foot Manual Muscle Testing Right Dorsiflexion (L4) 5 Normal Plantarflexion (S1) 4- Good- Inversion 4 Good Eversion (S1) 4 Good PT-OP-Q Treatments Start: 05/20/22 11:19 Freq: Status: Active Protocol: Document 05/20/22 11:15 AMB (Rec: 05/20/22 14:58 AMB [id number]) Therapeutic Exercises Standing Exercises double heel raise Standing Exercise Name 25% WB through surgical leg Reps/Minutes 5 Neuro Re-Education Treatment Balance Activities single leg balance Details 5-10 Comments wall close for touch down PT-OP-T Assessment and Plan Start: 05/20/22 11:19 Freq: Status: Active Protocol: Document 05/20/22 11:15 AMB (Rec: 05/22/22 15:59 AMB [id number]) Physical Therapy Assessment Rehab Potential Rehabilitation Potential Good Evaluation Complexity Number of Personal Factors/Comorbidities 1-2 Number of Body Systems Impaired 1-2 Clinical Presentation at Evaluation Stable Goals Three Impairment Strength Short Term Goal (STG) Alycia will perform 1 single leg heel raise to show improved plantarflexion strength. 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 LTG Duration 10 weeks Two Impairment Balance Short Term Goal (STG) Alycia will show improved balance by demonstrating balancing on a single leg for 20 seconds+. STG Duration 4 weeks One Impairment Gait Short Term Goal (STG) Alycia will ambulate over uneven surfaces including curb steps for 6 minutes without antalgia. STG Duration 4 weeks Coat Hanger Shaper Machine Operator Goal (LTG) Alycia will jog for 30 seconds to keep up with her children without pain. LTG Duration 10 weeks Assessment Summary Assessment Alycia attends physical therapy 2 months s/p her second (R) achilles tendon repair. Currently she is WBAT her major impairments include swelling, weakness with plantarflexion and balance. She will benefit from physical therapy to improve these impairments so that she can safely return to work and play with her children. Physical Therapy Plan Frequency and Duration Frequency of Treatment 2x/Week Duration of treatment (weeks) 10 Plan of Care Start Date 05/20/22 Plan of Care End Date 07/29/22 Therapeutic Interventions Therapeutic Interventions Balance Training,Gait Training ,Home Exercise Program,Manual Therapy,Neuromuscular Re- education,Self-Care/Home Management,Therapeutic Activities,Therapeutic Exercises Modalities Cold Pack/Ice Massage,Electric Stimulation,Hot Packs, Ultrasound Next Visit Focus/Plan Next Note Type Treatment Note Next Visit Plan Start with balance training, gentle plantarflexion strengthening, gait training, swelling/pain management. Current HEP: single leg stance and double leg heel lift with 25% weightbearing.
--- NOTE | 2022-05-20 16:01 | PT.OPPOC ---
Physical, Occupational & Speech Therapy At [facility] Current Diagnoses Unspecified injury of right Achilles tendon, initial encounter (05/20/22) Visit Care Team Role Provider Type Ronald Braswell PA-C Family Provider Non-Staff Primary Care Provider Specialty: Medical Address: [address] [place] [address], [id number] Email: Donny Deng DPM Attending Provider Non-Staff Referring Provider Specialty: Podiatry Address: [address] [place] [address], [phone] Email: Plan Of Care PT-OP-T Assessment and Plan Start: 05/20/22 11:19 Freq: Status: Active Protocol: Document 05/20/22 11:15 AMB (Rec: 05/22/22 15:59 AMB [id number]) Physical Therapy Assessment Rehab Potential Rehabilitation Potential Good Evaluation Complexity Number of Personal Factors/Comorbidities 1-2 Number of Body Systems Impaired 1-2 Clinical Presentation at Evaluation Stable Goals Three Impairment Strength Short Term Goal (STG) Alycia will perform 1 single leg heel raise to show improved plantarflexion strength. STG Duration 4 weeks [facility] Goal (LTG) Alycia will perform gentle plyometric exercises (ex jumping jacks, jump rope) without an increase in achilles pain. LTG Duration 10 weeks Two Impairment Balance Short Term Goal (STG) Alycia will show improved balance by demonstrating balancing on a single leg for 20 seconds+. STG Duration 4 weeks One Impairment Gait Short Term Goal (STG) Alycia will ambulate over uneven surfaces including curb steps for 6 minutes without antalgia. STG Duration 4 weeks [facility] Goal (LTG) Alycia will jog for 30 seconds to keep up with her children without pain. LTG Duration 10 weeks Assessment Summary Assessment Alycia attends physical therapy 2 months s/p her second (R) achilles tendon repair. Currently her major impairments include swelling, weakness with plantarflexion and balance. She will benefit from physical therapy to improve these impairments so that she can safely return to work and play with her children. Physical Therapy Plan Frequency and Duration Frequency of Treatment 2x/Week Duration of treatment (weeks) 10 Plan of Care Start Date 05/20/22 Plan of Care End Date 07/29/22 Therapeutic Interventions Therapeutic Interventions Balance Training,Gait Training ,Home Exercise Program,Manual Therapy,Neuromuscular Re- education,Self-Care/Home Management,Therapeutic Activities,Therapeutic Exercises Modalities Cold Pack/Ice Massage,Electric Stimulation,Hot Packs, Ultrasound Next Visit Focus/Plan Next Note Type Treatment Note Next Visit Plan Start with balance training, gentle plantarflexion strengthening, gait training, swelling/pain management. Current HEP: single leg stance and double leg heel lift with 25% weightbearing. Plan of Care Dates Plan of Care Start Date 05/20/22 Plan of Care End Date 07/29/22 Electronically Signed by: Danae Roche, PT 05/22/22 9036 If you are in agreement with this Plan of Care, please return a signed and dated copy. I have reviewed this Plan of Care and certify that the skilled therapy services above are required to meet the patient?s needs. Physician Signature Date Printed Name and Credentials Clinical Instructor Signature Printed Name and Credentials
--- NOTE | 2022-06-03 10:32 | PT.OTN ---
Current Diagnoses Unspecified injury of right Achilles tendon, initial encounter (06/03/22) Physical Therapy Treatment Note PT-OP-A Visit Information Start: 05/20/22 11:19 Freq: Status: Active Protocol: Document 06/03/22 09:45 AMB (Rec: 06/03/22 10:16 AMB [id number]) Out-Patient Physical Therapy Visit Information Visit Information Visit Type Treatment Note Visit Start Time 09:45 Visit Stop Time 10:30 Total Visit Minutes 45 Visit Number 2 PT-OP-B Current Condition Start: 05/20/22 11:19 Freq: Status: Active Protocol: Document 05/20/22 11:20 AMB (Rec: 05/20/22 11:33 AMB [id number]) Current Condition History of Current Condition Onset Date 03/20/21 Current Complaints R achilles repair History of Current Condition December of 2020 had first surgery , did PT, went back to work. Was on feet 40 hrs/week and pain increased significantly. Had second surgery 2 months ago, WBAT d/eduar walking boot 2 weeks ago, has not yet returned to work. Goals of being on the trampoline, running after kids. A little bit sore at the end of the day . Hasn't been working for almost a year because of the pain. Is wearing tennis shoes and a compression sock, no AD. Prior Functional Status Baseline Function- ADL's Independent Baseline Function- Mobility Independent Current Functional Impairments (Reported) Functional Limitations- ADL's difficulty walking, keeping up with kids Personal Factors Other Personal Factors That May Effect Asthma, hx gallbladder 2006, Therapy/Recovery hx weightloss surgery PT-OP-C Subjective Start: 05/20/22 11:19 Freq: Status: Active Protocol: Document 06/03/22 09:45 AMB (Rec: 06/03/22 10:16 AMB [id number]) OP-PT Subjective Patient Comments Patient Comments Pt saw MD yesterday and doesn' t need to see him again. PT-OP-D Balance Start: 05/20/22 11:43 Freq: Status: Active Protocol: Document 05/20/22 11:15 AMB (Rec: 05/22/22 15:40 AMB [id number]) Balance Tests Single Limb Standing Single Limb- Right 5 PT-OP-J Posture/Palpation/Skin Start: 05/20/22 11:43 Freq: Status: Active Protocol: Document 05/20/22 11:15 AMB (Rec: 05/22/22 15:40 AMB [id number]) Skin Assessment Incisional Assessment Incision Appearance/Comments swelling at achilles palpable, scar from most recent surgery healing well, there is also a scar from previous surgery and from a recent large blister. PT-OP-K Range of Motion Start: 05/20/22 11:19 Freq: Status: Active Protocol: Document 05/20/22 11:15 AMB (Rec: 05/20/22 12:08 AMB [id number]) Ankle and Foot Goniometric Range of Motion Ankle and Foot Right Active Testing Position Sitting Dorsiflexion with Knee Flexed 5 Plantarflexion 50 PT-OP-M Strength Start: 05/20/22 11:43 Freq: Status: Active Protocol: Document 05/20/22 11:15 AMB (Rec: 05/20/22 12:08 AMB [id number]) Ankle/Foot Strength Ankle and Foot Manual Muscle Testing Right Dorsiflexion (L4) 5 Normal Plantarflexion (S1) 4- Good- Inversion 4 Good Eversion (S1) 4 Good PT-OP-Q Treatments Start: 05/20/22 11:19 Freq: Status: Active Protocol: Document 06/03/22 09:45 AMB (Rec: 06/03/22 10:16 AMB [id number]) Cardio Equipment Recumbent Bicycle Duration (Minutes) 5 Resistance 3 Seat Position 5 Gym Equipment Shuttle Recovery Bilateral Heel Raises Resistance 50 Reps/Time 2x10 Unilateral Heel Raises Resistance 25 Shuttle Recovery Platform Stable Reps/Time 2x10 Therapeutic Exercises Sitting Exercises BAPS board Sitting Exercise Name circles CW CCW Side right Reps/Minutes 2x10 Standing Exercises double heel raise Standing Exercise Name 25% trying to progress to 50% WB through surgical leg Reps/Minutes 2x5 Neuro Re-Education Treatment Balance Activities tilt board Details a/p and m/l double leg Reps/Duration 3x1 min foam Details double leg balance Comments EO/EC- easy single leg balance Details 5-10 Comments wall close for touch down PT-OP-R Modalities Start: 06/03/22 10:28 Freq: Status: Active Protocol: Document 06/03/22 10:31 AMB (Rec: 06/03/22 10:32 AMB [id number]) Hot Pack/Cold Pack Treatment Cold Pack Location R ankle/achilles Patient Position Supine Treatment Duration (minutes) 10 Patient Tolerance Good PT-OP-T Assessment and Plan Start: 05/20/22 11:19 Freq: Status: Active Protocol: Document 06/03/22 09:45 AMB (Rec: 06/03/22 10:16 AMB [id number]) Physical Therapy Assessment Goals Three Impairment Strength Short Term Goal (STG) Alycia will perform 1 single leg heel raise to show improved plantarflexion strength. STG Duration 4 weeks [facility] Goal (LTG) Alycia will perform gentle plyometric exercises (ex jumping jacks, jump rope) without an increase in achilles pain. LTG Duration 10 weeks Two Impairment Balance Short Term Goal (STG) Alycia will show improved balance by demonstrating balancing on a single leg for 20 seconds+. STG Duration 4 weeks One Impairment Gait Short Term Goal (STG) Alycia will ambulate over uneven surfaces including curb steps for 6 minutes without antalgia. STG Duration 4 weeks Survey Operations Director Goal (LTG) Alycia will jog for 30 seconds to keep up with her children without pain. LTG Duration 10 weeks Assessment Summary Assessment Alycia has had a hard time doing her HEP over with her family. Tolerated strengthening in therapy well. Less swelling today, pt is having some discomfort at the end of the day, icing at night . Physical Therapy Plan Frequency and Duration Frequency of Treatment 2x/Week Duration of treatment (weeks) 10 Plan of Care Start Date 05/20/22 Plan of Care End Date 07/29/22 Therapeutic Interventions Therapeutic Interventions Balance Training,Gait Training ,Home Exercise Program,Manual Therapy,Neuromuscular Re- education,Self-Care/Home Management,Therapeutic Activities,Therapeutic Exercises Modalities Cold Pack/Ice Massage,Electric Stimulation,Hot Packs, Ultrasound Next Visit Focus/Plan Next Note Type Treatment Note Next Visit Plan Start with balance training, gentle plantarflexion strengthening, gait training, swelling/pain management. Current HEP: single leg stance and double leg heel lift
--- NOTE | 2022-06-05 08:20 | PT.OTN ---
Current Diagnoses Unspecified injury of right Achilles tendon, initial encounter (06/05/22) Physical Therapy Treatment Note PT-OP-A Visit Information Start: 05/20/22 11:19 Freq: Status: Active Protocol: Document 06/05/22 07:31 SP (Rec: 06/05/22 08:20 SP [id number]) Out-Patient Physical Therapy Visit Information Visit Information Visit Type Treatment Note Visit Start Time 07:31 Visit Stop Time 08:20 Total Visit Minutes 49 Visit Number 3 Number of LINER INSERTER Visits 1 PT-OP-B Current Condition Start: 05/20/22 11:19 Freq: Status: Active Protocol: Document 05/20/22 11:20 AMB (Rec: 05/20/22 11:33 AMB [id number]) Current Condition History of Current Condition Onset Date 03/20/21 Current Complaints R achilles repair History of Current Condition December of 2020 had first surgery , did PT, went back to work. Was on feet 40 hrs/week and pain increased significantly. Had second surgery 2 months ago, WBAT d/eduar walking boot 2 weeks ago, has not yet returned to work. Goals of being on the trampoline, running after kids. A little bit sore at the end of the day . Hasn't been working for almost a year because of the pain. Is wearing tennis shoes and a compression sock, no AD. Prior Functional Status Baseline Function- ADL's Independent Baseline Function- Mobility Independent Current Functional Impairments (Reported) Functional Limitations- ADL's difficulty walking, keeping up with kids Personal Factors Other Personal Factors That May Effect Asthma, hx gallbladder 2006, Therapy/Recovery hx weightloss surgery PT-OP-C Subjective Start: 05/20/22 11:19 Freq: Status: Active Protocol: Document 06/05/22 07:31 SP (Rec: 06/05/22 08:20 SP [id number]) OP-PT Subjective Patient Comments Patient Comments Pt reports sore but feels doing better. PT-OP-D Balance Start: 05/20/22 11:43 Freq: Status: Active Protocol: Document 05/20/22 11:15 AMB (Rec: 05/22/22 15:40 AMB [id number]) Balance Tests Single Limb Standing Single Limb- Right 5 PT-OP-J Posture/Palpation/Skin Start: 05/20/22 11:43 Freq: Status: Active Protocol: Document 05/20/22 11:15 AMB (Rec: 05/22/22 15:40 AMB [id number]) Skin Assessment Incisional Assessment Incision Appearance/Comments swelling at achilles palpable, scar from most recent surgery healing well, there is also a scar from previous surgery and from a recent large blister. PT-OP-K Range of Motion Start: 05/20/22 11:19 Freq: Status: Active Protocol: Document 05/20/22 11:15 AMB (Rec: 05/20/22 12:08 AMB [id number]) Ankle and Foot Goniometric Range of Motion Ankle and Foot Right Active Testing Position Sitting Dorsiflexion with Knee Flexed 5 Plantarflexion 50 PT-OP-M Strength Start: 05/20/22 11:43 Freq: Status: Active Protocol: Document 05/20/22 11:15 AMB (Rec: 05/20/22 12:08 AMB [id number]) Ankle/Foot Strength Ankle and Foot Manual Muscle Testing Right Dorsiflexion (L4) 5 Normal Plantarflexion (S1) 4- Good- Inversion 4 Good Eversion (S1) 4 Good PT-OP-Q Treatments Start: 05/20/22 11:19 Freq: Status: Active Protocol: Document 06/05/22 07:31 SP (Rec: 06/05/22 08:20 SP [id number]) Cardio Equipment Recumbent Bicycle Duration (Minutes) 5 Resistance 3>8 Seat Position 5 Gym Equipment Shuttle Recovery Bilateral Heel Raises Details heels off platform tolerant slow ROM Resistance 50 Shuttle Recovery Platform Stable Reps/Time 2x10 Unilateral Heel Raises Details foot flat on platform Resistance 25 Shuttle Recovery Platform Stable Reps/Time 2x10 Therapeutic Exercises Sitting Exercises 4 way ankle Sitting Exercise Name added to HEP Side right Resistance #3 TB Reps/Minutes x10 each Comments good feedback BAPS board Sitting Exercise Name circles CW CCW Side right Reps/Minutes 2x10 Standing Exercises SLS Standing Exercise Name next tx ankle mobility Standing Exercise Name added to HEP: various angles Equipment Used foot on 16 box (chair home) Comments good feedback stretch double heel raise Standing Exercise Name 25% trying to progress to 50% WB through surgical leg Reps/Minutes 2x8 reps Comments cued light contact rail, wt shift more over R Other Exercises self massage Other Exercise Name shown in manual Reps/Minutes 1 min Manual Therapy Treatment Soft Tissue Mobilization achilles Body Location R Comments brief manual then self PT-OP-R Modalities Start: 06/03/22 10:28 Freq: Status: Active Protocol: Document 06/05/22 07:31 SP (Rec: 06/05/22 08:20 SP [id number]) Hot Pack/Cold Pack Treatment Cold Pack Location R ankle/achilles Patient Position Supine Treatment Duration (minutes) 10 Patient Tolerance Good PT-OP-T Assessment and Plan Start: 05/20/22 11:19 Freq: Status: Active Protocol: Document 06/05/22 07:31 SP (Rec: 06/05/22 08:20 SP [id number]) Physical Therapy Assessment Goals Three Impairment Strength Short Term Goal (STG) Alycia will perform 1 single leg heel raise to show improved plantarflexion strength. STG Duration 4 weeks Plastic Surgeon Goal (LTG) Alycia will perform gentle plyometric exercises (ex jumping jacks, jump rope) without an increase in achilles pain. LTG Duration 10 weeks Two Impairment Balance Short Term Goal (STG) Alycia will show improved balance by demonstrating balancing on a single leg for 20 seconds+. STG Duration 4 weeks One Impairment Gait Short Term Goal (STG) Alycia will ambulate over uneven surfaces including curb steps for 6 minutes without antalgia. STG Duration 4 weeks Intermediate Goal (LTG) Alycia will jog for 30 seconds to keep up with her children without pain. LTG Duration 10 weeks Assessment Summary Assessment Pt good response to manual, CP , and HEP review. Reviewed past 4 way ankle to continue. LImited in active R heel raise , improved more wt shift over R with LLE assist Physical Therapy Plan Frequency and Duration Frequency of Treatment 2x/Week Duration of treatment (weeks) 10 Plan of Care Start Date 05/20/22 Plan of Care End Date 07/29/22 Therapeutic Interventions Therapeutic Interventions Balance Training,Gait Training ,Home Exercise Program,Manual Therapy,Neuromuscular Re- education,Self-Care/Home Management,Therapeutic Activities,Therapeutic Exercises Modalities Cold Pack/Ice Massage,Electric Stimulation,Hot Packs, Ultrasound Next Visit Focus/Plan Next Note Type Treatment Note Next Visit Plan Start with balance training, gentle plantarflexion strengthening, gait training, swelling/pain management. Current HEP: single leg stance and double leg heel lift with 25% weightbearing.
--- NOTE | 2022-06-10 10:30 | PT.OTN ---
Current Diagnoses Unspecified injury of right Achilles tendon, initial encounter (06/10/22) Physical Therapy Treatment Note PT-OP-A Visit Information Start: 05/20/22 11:19 Freq: Status: Active Protocol: Document 06/10/22 09:50 SP (Rec: 06/10/22 10:34 SP [id number]) Out-Patient Physical Therapy Visit Information Visit Information Visit Type Treatment Note Visit Start Time 09:50 Visit Stop Time 10:30 Total Visit Minutes 40 Visit Number 4 Number of DEVELOPMENTAL ELECTRONICS ASSEMBLER Visits 2 PT-OP-B Current Condition Start: 05/20/22 11:19 Freq: Status: Active Protocol: Document 05/20/22 11:20 AMB (Rec: 05/20/22 11:33 AMB [id number]) Current Condition History of Current Condition Onset Date 03/20/21 Current Complaints R achilles repair History of Current Condition December of 2020 had first surgery , did PT, went back to work. Was on feet 40 hrs/week and pain increased significantly. Had second surgery 2 months ago, WBAT d/eduar walking boot 2 weeks ago, has not yet returned to work. Goals of being on the trampoline, running after kids. A little bit sore at the end of the day . Hasn't been working for almost a year because of the pain. Is wearing tennis shoes and a compression sock, no AD. Prior Functional Status Baseline Function- ADL's Independent Baseline Function- Mobility Independent Current Functional Impairments (Reported) Functional Limitations- ADL's difficulty walking, keeping up with kids Personal Factors Other Personal Factors That May Effect Asthma, hx gallbladder 2006, Therapy/Recovery hx weightloss surgery PT-OP-C Subjective Start: 05/20/22 11:19 Freq: Status: Active Protocol: Document 06/10/22 09:50 SP (Rec: 06/10/22 10:34 SP [id number]) OP-PT Subjective Patient Comments Patient Comments Pt stated really focused on trying increasing more wt into R during heel raises. PT-OP-D Balance Start: 05/20/22 11:43 Freq: Status: Active Protocol: Document 05/20/22 11:15 AMB (Rec: 05/22/22 15:40 AMB [id number]) Balance Tests Single Limb Standing Single Limb- Right 5 PT-OP-J Posture/Palpation/Skin Start: 05/20/22 11:43 Freq: Status: Active Protocol: Document 05/20/22 11:15 AMB (Rec: 05/22/22 15:40 AMB [id number]) Skin Assessment Incisional Assessment Incision Appearance/Comments swelling at achilles palpable, scar from most recent surgery healing well, there is also a scar from previous surgery and from a recent large blister. PT-OP-K Range of Motion Start: 05/20/22 11:19 Freq: Status: Active Protocol: Document 05/20/22 11:15 AMB (Rec: 05/20/22 12:08 AMB [id number]) Ankle and Foot Goniometric Range of Motion Ankle and Foot Right Active Testing Position Sitting Dorsiflexion with Knee Flexed 5 Plantarflexion 50 PT-OP-M Strength Start: 05/20/22 11:43 Freq: Status: Active Protocol: Document 05/20/22 11:15 AMB (Rec: 05/20/22 12:08 AMB [id number]) Ankle/Foot Strength Ankle and Foot Manual Muscle Testing Right Dorsiflexion (L4) 5 Normal Plantarflexion (S1) 4- Good- Inversion 4 Good Eversion (S1) 4 Good PT-OP-Q Treatments Start: 05/20/22 11:19 Freq: Status: Active Protocol: Document 06/10/22 09:50 SP (Rec: 06/10/22 10:34 SP [id number]) Cardio Equipment Recumbent Bicycle Duration (Minutes) 5 Resistance 8 Seat Position 5 Therapeutic Exercises Standing Exercises band walk Standing Exercise Name added to HEP Resistance Tb #2 at ankles Reps/Minutes 20 ft x2 Comments soft knee HS curl Standing Exercise Name added to HEP Resistance TB #1 loop Equipment Used rail Reps/Minutes 3x10 Comments cued contact rail, soft knee- alternate LEs Other Exercises self massage Other Exercise Name manual and review w/ AP Reps/Minutes 2 min Manual Therapy Treatment Soft Tissue Mobilization achilles Body Location R Comments 2 min brief manual, reviewed self STM sustained pressure w/ AP and tennis ball on floor Self-Care/Home Management Treatment Education Patient Education Home Exercise Program,Pain Management,Safety Other Education Ed on self STMs, fluid return, mechanics gait for normalizing toe off strength to decrease limp gait. Initiated ed and brief 30 sec ice cup for cold modality awareness can do at home. PT-OP-R Modalities Start: 06/03/22 10:28 Freq: Status: Active Protocol: Document 06/05/22 07:31 SP (Rec: 06/05/22 08:20 SP [id number]) Hot Pack/Cold Pack Treatment Cold Pack Location R ankle/achilles Patient Position Supine Treatment Duration (minutes) 10 Patient Tolerance Good PT-OP-T Assessment and Plan Start: 05/20/22 11:19 Freq: Status: Active Protocol: Document 06/10/22 09:50 SP (Rec: 06/10/22 10:34 SP [id number]) Physical Therapy Assessment Goals Three Impairment Strength Short Term Goal (STG) Alycia will perform 1 single leg heel raise to show improved plantarflexion strength. STG Duration 4 weeks Veterinary Practice Manager Goal (LTG) Alycia will perform gentle plyometric exercises (ex jumping jacks, jump rope) without an increase in achilles pain. LTG Duration 10 weeks Two Impairment Balance Short Term Goal (STG) Alycia will show improved balance by demonstrating balancing on a single leg for 20 seconds+. STG Duration 4 weeks One Impairment Gait Short Term Goal (STG) Alycia will ambulate over uneven surfaces including curb steps for 6 minutes without antalgia. STG Duration 4 weeks Fpc Goal (LTG) Alycia will jog for 30 seconds to keep up with her children without pain. LTG Duration 10 weeks Assessment Summary Assessment Pt improved proximal calf/ distal HS engagement with soft knee flexion positioning during added resisted HS curls and lateral band walks and SLS light contact UEs and LLE toe wt shift Ant/Post on shuttle balance. Pt stated good muscle effort and not painful more soreness. DEVELOPMENTAL ELECTRONICS ASSEMBLER Physical Therapy Plan Frequency and Duration Frequency of Treatment 2x/Week Duration of treatment (weeks) 10 Plan of Care Start Date 05/20/22 Plan of Care End Date 07/29/22 Therapeutic Interventions Therapeutic Interventions Balance Training,Gait Training ,Home Exercise Program,Manual Therapy,Neuromuscular Re- education,Self-Care/Home Management,Therapeutic Activities,Therapeutic Exercises Modalities Cold Pack/Ice Massage,Electric Stimulation,Hot Packs, Ultrasound Next Visit Focus/Plan Next Note Type Treatment Note Next Visit Plan Start with balance training, gentle plantarflexion strengthening, gait training, swelling/pain management. Current HEP: single leg stance and double leg heel lift with 25% weightbearing.
--- NOTE | 2022-06-12 13:51 | PT.OTN ---
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 Was on feet 40 hrs/week and pain increased significantly. Had second surgery 2 months ago, WBAT d/eduar walking boot 2 weeks ago, has not yet returned to work. Goals of being on the trampoline, running after kids. A little bit sore at the end of the day . Hasn't been working for almost a year because of the pain. Is wearing tennis shoes and a compression sock, no AD. Prior Functional Status Baseline Function- ADL's Independent Baseline Function- Mobility Independent Current Functional Impairments (Reported) Functional Limitations- ADL's difficulty walking, keeping up with kids Personal Factors Other Personal Factors That May Effect Asthma, hx gallbladder 2006, Therapy/Recovery hx weightloss surgery PT-OP-C Subjective Start: 05/20/22 11:19 Freq: Status: Active Protocol: Document 06/12/22 11:43 NBM (Rec: 06/12/22 13:51 NB [id number]) OP-PT Subjective Patient Comments Patient Comments Pt has been doing HEP and is committed to PT. Pt's R achilles pain is 1-2/10 and is most of the time, whereas the pain level always used to be a 10. Muscle is a little stiff today. PT-OP-D Balance Start: 05/20/22 11:43 Freq: Status: Active Protocol: Document 05/20/22 11:15 AMB (Rec: 05/22/22 15:40 AMB [id number]) Balance Tests Single Limb Standing Single Limb- Right 5 PT-OP-J Posture/Palpation/Skin Start: 05/20/22 11:43 Freq: Status: Active Protocol: Document 05/20/22 11:15 AMB (Rec: 05/22/22 15:40 AMB [id number]) Skin Assessment Incisional Assessment Incision Appearance/Comments swelling at achilles palpable, scar from most recent surgery healing well, there is also a scar from previous surgery and from a recent large blister. PT-OP-K Range of Motion Start: 05/20/22 11:19 Freq: Status: Active Protocol: Document 05/20/22 11:15 AMB (Rec: 05/20/22 12:08 AMB [id number]) Ankle and Foot Goniometric Range of Motion Ankle and Foot Right Active Testing Position Sitting Dorsiflexion with Knee Flexed 5 Plantarflexion 50 PT-OP-M Strength Start: 05/20/22 11:43 Freq: Status: Active Protocol: Document 05/20/22 11:15 AMB (Rec: 05/20/22 12:08 AMB [id number]) Ankle/Foot Strength Ankle and Foot Manual Muscle Testing Right Dorsiflexion (L4) 5 Normal Plantarflexion (S1) 4- Good- Inversion 4 Good Eversion (S1) 4 Good PT-OP-Q Treatments Start: 05/20/22 11:19 Freq: Status: Active Protocol: Document 06/12/22 11:43 NBM (Rec: 06/12/22 13:51 NBM [id number]) Gym Equipment Shuttle Recovery Bilateral Heel Raises Details heels off platform tolerant slow ROM Resistance 50 Shuttle Recovery Platform Stable Reps/Time 2x10 Unilateral Heel Raises Details foot flat on platform Resistance 25 Shuttle Recovery Platform Stable Reps/Time 2x10 Shuttle Balance Red clips Details R DF w/ L toe touch Reps/Duration 3 min Comments R soft knee focus, dc'd d/t pt c/o of increased pain Therapeutic Exercises Standing Exercises band walk Resistance Tb #2 at ankles Reps/Minutes 20 ft x2 Comments soft knee, vc for upright posture vs lateral lean. ankle mobility Standing Exercise Name various angles Equipment Used foot on 16 box (chair home) Comments good feedback stretch double heel raise Standing Exercise Name 25% trying to progress to 50% WB through surgical leg Reps/Minutes 2x8 reps Comments dc'd d/t pt c/o pain -cued light contact rail, wt shift more over R Manual Therapy Treatment Soft Tissue Mobilization achilles Body Location R Comments gastroc/soleus complex with focus on achilles insertion and scar tissue massage to reduce adhesions and improve ankle mobility. PT-OP-R Modalities Start: 06/03/22 10:28 Freq: Status: Active Protocol: Document 06/05/22 07:31 SP (Rec: 06/05/22 08:20 SP [id number]) Hot Pack/Cold Pack Treatment Cold Pack Location R ankle/achilles Patient Position Supine Treatment Duration (minutes) 10 Patient Tolerance Good PT-OP-T Assessment and Plan Start: 05/20/22 11:19 Freq: Status: Active Protocol: Document 06/12/22 11:43 NBM (Rec: 06/12/22 13:51 NBM [id number]) Physical Therapy Assessment Goals Three Impairment Strength Short Term Goal (STG) Alycia will perform 1 single leg heel raise to show improved plantarflexion strength. STG Duration 4 weeks Usp Goal (LTG) Alycia will perform gentle plyometric exercises (ex jumping jacks, jump rope) without an increase in achilles pain. LTG Duration 10 weeks Two Impairment Balance Short Term Goal (STG) Alycia will show improved balance by demonstrating balancing on a single leg for 20 seconds+. STG Duration 4 weeks One Impairment Gait Short Term Goal (STG) Alycia will ambulate over uneven surfaces including curb steps for 6 minutes without antalgia. STG Duration 4 weeks Usp Goal (LTG) Alycia will jog for 30 seconds to keep up with her children without pain. LTG Duration 10 weeks Assessment Summary Assessment Pt demonstrates compliance to HEP and requires cues to reduce lateral lean w/ resisted sidestepping. She has good self-awareness of maintaining soft knee bend in R leg w/ exercises. Standing B heel raises were discontinued due to pt's complaint of pain even w/ LLE toe touch, but pt was able to tolerate supine bilateral heel raises on shuttle recovery. Manual therapy to R gastrocnemius/ soleus complex with focus on achilles insertion and scar tissue massage to reduce adhesions and improve ankle mobility. Physical Therapy Plan Frequency and Duration Frequency of Treatment 2x/Week Duration of treatment (weeks) 10 Plan of Care Start Date 05/20/22 Plan of Care End Date 07/29/22 Therapeutic Interventions Therapeutic Interventions Balance Training,Gait Training ,Home Exercise Program,Manual Therapy,Neuromuscular Re- education,Self-Care/Home Management,Therapeutic Activities,Therapeutic Exercises Modalities Cold Pack/Ice Massage,Electric Stimulation,Hot Packs, Ultrasound Next Visit Focus/Plan Next Note Type Treatment Note Next Visit Plan Start with balance training, gentle plantarflexion strengthening, gait training, swelling/pain management. Current HEP: single leg stance and double leg heel lift with 25% weightbearing.
--- NOTE | 2022-06-16 21:01 | PT.OTN ---
Current Diagnoses Unspecified injury of right Achilles tendon, initial encounter (06/16/22) Physical Therapy Treatment Note PT-OP-A Visit Information Start: 05/20/22 11:19 Freq: Status: Active Protocol: Document 06/16/22 09:46 AMB (Rec: 06/16/22 10:27 AMB [id number]) Out-Patient Physical Therapy Visit Information Visit Information Visit Type Treatment Note Visit Start Time 09:45 Visit Stop Time 10:30 Total Visit Minutes 45 Visit Number 6 Number of MANAGER INFORMATION Visits 0 Precautions Precautions mar 14 surgery date PT-OP-B Current Condition Start: 05/20/22 11:19 Freq: Status: Active Protocol: Document 05/20/22 11:20 AMB (Rec: 05/20/22 11:33 AMB [id number]) Current Condition History of Current Condition Onset Date 03/20/21 Current Complaints R achilles repair History of Current Condition December of 2020 had first surgery , did PT, went back to work. Was on feet 40 hrs/week and pain increased significantly. Had second surgery 2 months ago, WBAT d/eduar walking boot 2 weeks ago, has not yet returned to work. Goals of being on the trampoline, running after kids. A little bit sore at the end of the day . Hasn't been working for almost a year because of the pain. Is wearing tennis shoes and a compression sock, no AD. Prior Functional Status Baseline Function- ADL's Independent Baseline Function- Mobility Independent Current Functional Impairments (Reported) Functional Limitations- ADL's difficulty walking, keeping up with kids Personal Factors Other Personal Factors That May Effect Asthma, hx gallbladder 2006, Therapy/Recovery hx weightloss surgery PT-OP-C Subjective Start: 05/20/22 11:19 Freq: Status: Active Protocol: Document 06/16/22 09:46 AMB (Rec: 06/16/22 10:27 AMB [id number]) OP-PT Subjective Patient Comments Patient Comments Pt is a little sore today, did a lot of walking yesterday. PT-OP-D Balance Start: 05/20/22 11:43 Freq: Status: Active Protocol: Document 05/20/22 11:15 AMB (Rec: 05/22/22 15:40 AMB [id number]) Balance Tests Single Limb Standing Single Limb- Right 5 PT-OP-J Posture/Palpation/Skin Start: 05/20/22 11:43 Freq: Status: Active Protocol: Document 05/20/22 11:15 AMB (Rec: 05/22/22 15:40 AMB [id number]) Skin Assessment Incisional Assessment Incision Appearance/Comments swelling at achilles palpable, scar from most recent surgery healing well, there is also a scar from previous surgery and from a recent large blister. PT-OP-K Range of Motion Start: 05/20/22 11:19 Freq: Status: Active Protocol: Document 05/20/22 11:15 AMB (Rec: 05/20/22 12:08 AMB [id number]) Ankle and Foot Goniometric Range of Motion Ankle and Foot Right Active Testing Position Sitting Dorsiflexion with Knee Flexed 5 Plantarflexion 50 PT-OP-M Strength Start: 05/20/22 11:43 Freq: Status: Active Protocol: Document 05/20/22 11:15 AMB (Rec: 05/20/22 12:08 AMB [id number]) Ankle/Foot Strength Ankle and Foot Manual Muscle Testing Right Dorsiflexion (L4) 5 Normal Plantarflexion (S1) 4- Good- Inversion 4 Good Eversion (S1) 4 Good PT-OP-Q Treatments Start: 05/20/22 11:19 Freq: Status: Active Protocol: Document 06/16/22 09:46 AMB (Rec: 06/16/22 10:27 AMB [id number]) Gym Equipment Shuttle Recovery Bilateral Heel Raises Details heels off platform tolerant slow ROM Resistance 50 Shuttle Recovery Platform Stable Reps/Time 2x10 Unilateral Heel Raises Details foot flat on platform Resistance 25 Shuttle Recovery Platform Stable Reps/Time 2x10 Therapeutic Exercises Standing Exercises mini squats Reps/Minutes 10 Comments tolerated well, cued form fwd lunges Reps/Minutes 10 Comments at railing BRANDI ankle Reps/Minutes 30x2 double heel raise Standing Exercise Name 50%-50% weightbearing up, 75% WB on surgical leg for eccentric loading Reps/Minutes x5 Comments on stair with rail Manual Therapy Treatment Soft Tissue Mobilization achilles Body Location R Comments gastroc/soleus complex with focus on achilles insertion and scar tissue massage to reduce adhesions and improve ankle mobility. PT-OP-R Modalities Start: 06/03/22 10:28 Freq: Status: Active Protocol: Document 06/05/22 07:31 SP (Rec: 06/05/22 08:20 SP [id number]) Hot Pack/Cold Pack Treatment Cold Pack Location R ankle/achilles Patient Position Supine Treatment Duration (minutes) 10 Patient Tolerance Good PT-OP-T Assessment and Plan Start: 05/20/22 11:19 Freq: Status: Active Protocol: Document 06/16/22 09:46 AMB (Rec: 06/16/22 10:27 AMB [id number]) Physical Therapy Assessment Goals Three Impairment Strength Short Term Goal (STG) Alycia will perform 1 single leg heel raise to show improved plantarflexion strength. STG Duration 4 weeks Folded Cloth Taper Goal (LTG) Alycia will perform gentle plyometric exercises (ex jumping jacks, jump rope) without an increase in achilles pain. LTG Duration 10 weeks Two Impairment Balance Short Term Goal (STG) Alycia will show improved balance by demonstrating balancing on a single leg for 20 seconds+. STG Duration 4 weeks One Impairment Gait Short Term Goal (STG) Alycia will ambulate over uneven surfaces including curb steps for 6 minutes without antalgia. STG Duration 4 weeks Longterm Goal (LTG) Alycia will jog for 30 seconds to keep up with her children without pain. LTG Duration 10 weeks Assessment Summary Assessment Pt is doing well with her walking, progressing to about 6-7,000 steps/day. Progressed to gentle eccentric double leg heel raises on stair, over time increasing the amount of WB through R leg. Encouraged pt to increase standard 50/ 50WB double leg heel raises to x15 reps at home. Will want to progress balance exercises. Encouraged pt in her goal of returning to gym workout, discussed pt not allowed to run/do plyos yet, pt with good understanding. Physical Therapy Plan Frequency and Duration Frequency of Treatment 2x/Week Duration of treatment (weeks) 10 Plan of Care Start Date 05/20/22 Plan of Care End Date 07/29/22 Therapeutic Interventions Therapeutic Interventions Balance Training,Gait Training ,Home Exercise Program,Manual Therapy,Neuromuscular Re- education,Self-Care/Home Management,Therapeutic Activities,Therapeutic Exercises Modalities Cold Pack/Ice Massage,Electric Stimulation,Hot Packs, Ultrasound Next Visit Focus/Plan Next Note Type Treatment Note Next Visit Plan Start with balance training, gentle plantarflexion strengthening, gait training, swelling/pain management.
--- NOTE | 2022-06-23 10:26 | PT.OTN ---
Current Diagnoses Unspecified injury of right Achilles tendon, initial encounter (06/23/22) Physical Therapy Treatment Note PT-OP-A Visit Information Start: 05/20/22 11:19 Freq: Status: Active Protocol: Document 06/23/22 09:55 AMB (Rec: 06/23/22 10:14 AMB [id number]) Out-Patient Physical Therapy Visit Information Visit Information Visit Type Treatment Note Visit Start Time 09:50 Visit Stop Time 10:30 Total Visit Minutes 45 Visit Number 7 PT-OP-B Current Condition Start: 05/20/22 11:19 Freq: Status: Active Protocol: Document 05/20/22 11:20 AMB (Rec: 05/20/22 11:33 AMB [id number]) Current Condition History of Current Condition Onset Date 03/20/21 Current Complaints R achilles repair History of Current Condition December of 2020 had first surgery , did PT, went back to work. Was on feet 40 hrs/week and pain increased significantly. Had second surgery 2 months ago, WBAT d/eduar walking boot 2 weeks ago, has not yet returned to work. Goals of being on the trampoline, running after kids. A little bit sore at the end of the day . Hasn't been working for almost a year because of the pain. Is wearing tennis shoes and a compression sock, no AD. Prior Functional Status Baseline Function- ADL's Independent Baseline Function- Mobility Independent Current Functional Impairments (Reported) Functional Limitations- ADL's difficulty walking, keeping up with kids Personal Factors Other Personal Factors That May Effect Asthma, hx gallbladder 2006, Therapy/Recovery hx weightloss surgery PT-OP-C Subjective Start: 05/20/22 11:19 Freq: Status: Active Protocol: Document 06/23/22 09:55 AMB (Rec: 06/23/22 10:14 AMB [id number]) OP-PT Subjective Patient Comments Patient Comments Pt is reporting increased soreness in the calf. PT-OP-D Balance Start: 05/20/22 11:43 Freq: Status: Active Protocol: Document 05/20/22 11:15 AMB (Rec: 05/22/22 15:40 AMB [id number]) Balance Tests Single Limb Standing Single Limb- Right 5 PT-OP-J Posture/Palpation/Skin Start: 05/20/22 11:43 Freq: Status: Active Protocol: Document 05/20/22 11:15 AMB (Rec: 05/22/22 15:40 AMB [id number]) Skin Assessment Incisional Assessment Incision Appearance/Comments swelling at achilles palpable, scar from most recent surgery healing well, there is also a scar from previous surgery and from a recent large blister. PT-OP-K Range of Motion Start: 05/20/22 11:19 Freq: Status: Active Protocol: Document 05/20/22 11:15 AMB (Rec: 05/20/22 12:08 AMB [id number]) Ankle and Foot Goniometric Range of Motion Ankle and Foot Right Active Testing Position Sitting Dorsiflexion with Knee Flexed 5 Plantarflexion 50 PT-OP-M Strength Start: 05/20/22 11:43 Freq: Status: Active Protocol: Document 05/20/22 11:15 AMB (Rec: 05/20/22 12:08 AMB [id number]) Ankle/Foot Strength Ankle and Foot Manual Muscle Testing Right Dorsiflexion (L4) 5 Normal Plantarflexion (S1) 4- Good- Inversion 4 Good Eversion (S1) 4 Good PT-OP-Q Treatments Start: 05/20/22 11:19 Freq: Status: Active Protocol: Document 06/23/22 09:55 AMB (Rec: 06/23/22 10:14 AMB [id number]) Gym Equipment Shuttle Recovery Bilateral Heel Raises Details heels off platform tolerant slow ROM Resistance 50 Shuttle Recovery Platform Stable Reps/Time 2x10 Unilateral Heel Raises Details foot flat on platform Resistance 25 Shuttle Recovery Platform Stable Reps/Time 2x10 Shuttle Balance Red clips Details R DF w/ L toe touch Reps/Duration 3 min Comments R soft knee focus, Therapeutic Exercises Standing Exercises BRANDI ankle Reps/Minutes 30x2 double heel raise Standing Exercise Name 50%-50% weightbearing up, 75% WB on surgical leg for eccentric loading Reps/Minutes x5 Comments on stair with rail Manual Therapy Treatment Soft Tissue Mobilization achilles Body Location R Comments gastroc/soleus complex with focus on achilles insertion and scar tissue massage to reduce adhesions and improve ankle mobility. PT-OP-R Modalities Start: 06/03/22 10:28 Freq: Status: Active Protocol: Document 06/05/22 07:31 SP (Rec: 06/05/22 08:20 SP [id number]) Hot Pack/Cold Pack Treatment Cold Pack Location R ankle/achilles Patient Position Supine Treatment Duration (minutes) 10 Patient Tolerance Good PT-OP-T Assessment and Plan Start: 05/20/22 11:19 Freq: Status: Active Protocol: Document 06/23/22 09:55 AMB (Rec: 06/23/22 10:14 AMB [id number]) Physical Therapy Assessment Goals Three Impairment Strength Short Term Goal (STG) Alycia will perform 1 single leg heel raise to show improved plantarflexion strength. STG Duration 4 weeks Group Home Goal (LTG) Alycia will perform gentle plyometric exercises (ex jumping jacks, jump rope) without an increase in achilles pain. LTG Duration 10 weeks Two Impairment Balance Short Term Goal (STG) Alycia will show improved balance by demonstrating balancing on a single leg for 20 seconds+. STG Duration 4 weeks One Impairment Gait Short Term Goal (STG) Alycia will ambulate over uneven surfaces including curb steps for 6 minutes without antalgia. STG Duration 4 weeks Group Home Goal (LTG) Alycia will jog for 30 seconds to keep up with her children without pain. LTG Duration 10 weeks Assessment Summary Assessment Pt encouraged to continue to progress walking. Pt was feeling soreness in the calf, but the ankle feels fine. 15 reps for HEP calf raises seems to be enough at this point due to increased soreness. Pt challenged with balance exercises. Consider increased challenge of balance exercises next visit for HEP. Physical Therapy Plan Frequency and Duration Frequency of Treatment 2x/Week Duration of treatment (weeks) 10 Plan of Care Start Date 05/20/22 Plan of Care End Date 07/29/22 Therapeutic Interventions Therapeutic Interventions Balance Training,Gait Training ,Home Exercise Program,Manual Therapy,Neuromuscular Re- education,Self-Care/Home Management,Therapeutic Activities,Therapeutic Exercises Modalities Cold Pack/Ice Massage,Electric Stimulation,Hot Packs, Ultrasound Next Visit Focus/Plan Next Note Type Treatment Note Next Visit Plan Start with balance training, gentle plantarflexion strengthening, gait training, swelling/pain management.
--- NOTE | 2022-06-26 10:48 | PT.OTN ---
Current Diagnoses Unspecified injury of right Achilles tendon, initial encounter (06/26/22) Physical Therapy Treatment Note PT-OP-A Visit Information Start: 05/20/22 11:19 Freq: Status: Active Protocol: Document 06/26/22 09:54 NBM (Rec: 06/26/22 10:47 NBM [id number]) Out-Patient Physical Therapy Visit Information Visit Information Visit Type Treatment Note Visit Start Time 10:00 Visit Stop Time 10:47 Total Visit Minutes 40 Visit Number 8 Number of STICK PULLER Visits 1 PT-OP-B Current Condition Start: 05/20/22 11:19 Freq: Status: Active Protocol: Document 05/20/22 11:20 AMB (Rec: 05/20/22 11:33 AMB [id number]) Current Condition History of Current Condition Onset Date 03/20/21 Current Complaints R achilles repair History of Current Condition December of 2020 had first surgery , did PT, went back to work. Was on feet 40 hrs/week and pain increased significantly. Had second surgery 2 months ago, WBAT d/eduar walking boot 2 weeks ago, has not yet returned to work. Goals of being on the trampoline, running after kids. A little bit sore at the end of the day . Hasn't been working for almost a year because of the pain. Is wearing tennis shoes and a compression sock, no AD. Prior Functional Status Baseline Function- ADL's Independent Baseline Function- Mobility Independent Current Functional Impairments (Reported) Functional Limitations- ADL's difficulty walking, keeping up with kids Personal Factors Other Personal Factors That May Effect Asthma, hx gallbladder 2006, Therapy/Recovery hx weightloss surgery PT-OP-C Subjective Start: 05/20/22 11:19 Freq: Status: Active Protocol: Document 06/26/22 09:54 NBM (Rec: 06/26/22 10:47 NB [id number]) OP-PT Subjective Patient Comments Patient Comments Pt states she has increased calf soreness similar to last visit and thinks she overdid walking yesterday again. She felt fine yesterday, but the 24-hr soreness lets her know she overdid it. Pt is looking into gym after getting a job. PT-OP-D Balance Start: 05/20/22 11:43 Freq: Status: Active Protocol: Document 05/20/22 11:15 AMB (Rec: 05/22/22 15:40 AMB [id number]) Balance Tests Single Limb Standing Single Limb- Right 5 PT-OP-J Posture/Palpation/Skin Start: 05/20/22 11:43 Freq: Status: Active Protocol: Document 05/20/22 11:15 AMB (Rec: 05/22/22 15:40 AMB [id number]) Skin Assessment Incisional Assessment Incision Appearance/Comments swelling at achilles palpable, scar from most recent surgery healing well, there is also a scar from previous surgery and from a recent large blister. PT-OP-K Range of Motion Start: 05/20/22 11:19 Freq: Status: Active Protocol: Document 05/20/22 11:15 AMB (Rec: 05/20/22 12:08 AMB [id number]) Ankle and Foot Goniometric Range of Motion Ankle and Foot Right Active Testing Position Sitting Dorsiflexion with Knee Flexed 5 Plantarflexion 50 PT-OP-M Strength Start: 05/20/22 11:43 Freq: Status: Active Protocol: Document 05/20/22 11:15 AMB (Rec: 05/20/22 12:08 AMB [id number]) Ankle/Foot Strength Ankle and Foot Manual Muscle Testing Right Dorsiflexion (L4) 5 Normal Plantarflexion (S1) 4- Good- Inversion 4 Good Eversion (S1) 4 Good PT-OP-Q Treatments Start: 05/20/22 11:19 Freq: Status: Active Protocol: Document 06/26/22 09:54 NBM (Rec: 06/26/22 10:47 NBM [id number]) Gym Equipment Shuttle Recovery Bilateral Heel Raises Details heels off platform tolerant slow ROM Resistance 50 Shuttle Recovery Platform Stable Reps/Time 2x10 Unilateral Heel Raises Details foot flat on platform Resistance 25 Shuttle Recovery Platform Stable Reps/Time 2x10 Shuttle Balance Red clips Details WBOS a/p weightshifting; R DF w/ L toe touch Reps/Duration 3 min Comments R soft knee focus Trialed L DF w/ R toe touch to compare and provide biofeedback. Therapeutic Exercises Standing Exercises mini squats Equipment Used w/ handrail Reps/Minutes 10 Comments tolerated well, cued form hip hinge fwd lunges Reps/Minutes 10 Comments at railing BRANDI ankle Reps/Minutes 30x2 band walk Resistance Tb #2 at ankles Reps/Minutes 20 ft x2 Comments soft knee, vc for upright posture vs lateral lean. ankle mobility Standing Exercise Name various angles Equipment Used foot on 16 box (chair home) Comments good feedback stretch double heel raise Standing Exercise Name 50%-50% weightbearing up, 75% WB on surgical leg for eccentric loading Reps/Minutes x5 Comments on stair with rail Manual Therapy Treatment Soft Tissue Mobilization achilles Body Location R Comments gastroc/soleus complex with focus on achilles insertion and scar tissue massage to reduce adhesions and improve ankle mobility. PT-OP-R Modalities Start: 06/03/22 10:28 Freq: Status: Active Protocol: Document 06/05/22 07:31 SP (Rec: 06/05/22 08:20 SP [id number]) Hot Pack/Cold Pack Treatment Cold Pack Location R ankle/achilles Patient Position Supine Treatment Duration (minutes) 10 Patient Tolerance Good PT-OP-T Assessment and Plan Start: 05/20/22 11:19 Freq: Status: Active Protocol: Document 06/26/22 09:54 NBM (Rec: 06/26/22 10:47 NBM [id number]) Physical Therapy Assessment Goals Three Impairment Strength Short Term Goal (STG) Alycia will perform 1 single leg heel raise to show improved plantarflexion strength. STG Duration 4 weeks Detention Goal (LTG) Alycia will perform gentle plyometric exercises (ex jumping jacks, jump rope) without an increase in achilles pain. LTG Duration 10 weeks Two Impairment Balance Short Term Goal (STG) Alycia will show improved balance by demonstrating balancing on a single leg for 20 seconds+. STG Duration 4 weeks One Impairment Gait Short Term Goal (STG) Alycia will ambulate over uneven surfaces including curb steps for 6 minutes without antalgia. STG Duration 4 weeks Rn Admission Goal (LTG) Alycia will jog for 30 seconds to keep up with her children without pain. LTG Duration 10 weeks Assessment Summary Assessment Pt encouraged to do unilateral ex's on LLE first to provide neurofeedback for RLE. Pt requires occasional cues for upright posture and soft knee w/ ex's. Pt's form for mini squat improves with cue for hip hinge. Physical Therapy Plan Frequency and Duration Frequency of Treatment 2x/Week Duration of treatment (weeks) 10 Plan of Care Start Date 05/20/22 Plan of Care End Date 07/29/22 Therapeutic Interventions Therapeutic Interventions Balance Training,Gait Training ,Home Exercise Program,Manual Therapy,Neuromuscular Re- education,Self-Care/Home Management,Therapeutic Activities,Therapeutic Exercises Modalities Cold Pack/Ice Massage,Electric Stimulation,Hot Packs, Ultrasound Next Visit Focus/Plan Next Note Type Treatment Note Next Visit Plan Start with balance training, gentle plantarflexion strengthening, gait training, swelling/pain management.
--- NOTE | 2022-06-30 21:44 | PT.OTN ---
Current Diagnoses Unspecified injury of right Achilles tendon, initial encounter (06/30/22) Physical Therapy Treatment Note PT-OP-A Visit Information Start: 05/20/22 11:19 Freq: Status: Active Protocol: Document 06/30/22 09:51 AMB (Rec: 06/30/22 10:34 AMB [id number]) Out-Patient Physical Therapy Visit Information Visit Information Visit Type Treatment Note Visit Start Time 09:45 Visit Stop Time 10:30 Total Visit Minutes 45 Visit Number 9 PT-OP-B Current Condition Start: 05/20/22 11:19 Freq: Status: Active Protocol: Document 05/20/22 11:20 AMB (Rec: 05/20/22 11:33 AMB [id number]) Current Condition History of Current Condition Onset Date 03/20/21 Current Complaints R achilles repair History of Current Condition December of 2020 had first surgery , did PT, went back to work. Was on feet 40 hrs/week and pain increased significantly. Had second surgery 2 months ago, WBAT d/eduar walking boot 2 weeks ago, has not yet returned to work. Goals of being on the trampoline, running after kids. A little bit sore at the end of the day . Hasn't been working for almost a year because of the pain. Is wearing tennis shoes and a compression sock, no AD. Prior Functional Status Baseline Function- ADL's Independent Baseline Function- Mobility Independent Current Functional Impairments (Reported) Functional Limitations- ADL's difficulty walking, keeping up with kids Personal Factors Other Personal Factors That May Effect Asthma, hx gallbladder 2006, Therapy/Recovery hx weightloss surgery PT-OP-C Subjective Start: 05/20/22 11:19 Freq: Status: Active Protocol: Document 06/30/22 09:51 AMB (Rec: 06/30/22 10:34 AMB [id number]) OP-PT Subjective Patient Comments Patient Comments Pt states she went on a 3 mile walk over the weekend and calf is a bit sore from that. PT-OP-D Balance Start: 05/20/22 11:43 Freq: Status: Active Protocol: Document 05/20/22 11:15 AMB (Rec: 05/22/22 15:40 AMB [id number]) Balance Tests Single Limb Standing Single Limb- Right 5 PT-OP-J Posture/Palpation/Skin Start: 05/20/22 11:43 Freq: Status: Active Protocol: Document 05/20/22 11:15 AMB (Rec: 05/22/22 15:40 AMB [id number]) Skin Assessment Incisional Assessment Incision Appearance/Comments swelling at achilles palpable, scar from most recent surgery healing well, there is also a scar from previous surgery and from a recent large blister. PT-OP-K Range of Motion Start: 05/20/22 11:19 Freq: Status: Active Protocol: Document 05/20/22 11:15 AMB (Rec: 05/20/22 12:08 AMB [id number]) Ankle and Foot Goniometric Range of Motion Ankle and Foot Right Active Testing Position Sitting Dorsiflexion with Knee Flexed 5 Plantarflexion 50 PT-OP-M Strength Start: 05/20/22 11:43 Freq: Status: Active Protocol: Document 05/20/22 11:15 AMB (Rec: 05/20/22 12:08 AMB [id number]) Ankle/Foot Strength Ankle and Foot Manual Muscle Testing Right Dorsiflexion (L4) 5 Normal Plantarflexion (S1) 4- Good- Inversion 4 Good Eversion (S1) 4 Good PT-OP-Q Treatments Start: 05/20/22 11:19 Freq: Status: Active Protocol: Document 06/30/22 09:51 AMB (Rec: 06/30/22 10:34 AMB [id number]) Gym Equipment Shuttle Recovery Bilateral Heel Raises Details heels off platform tolerant slow ROM Resistance 62 Shuttle Recovery Platform Stable Reps/Time 2x10 Unilateral Heel Raises Details heels off platform Resistance 37 Shuttle Recovery Platform Stable Reps/Time 2x10 Shuttle Balance Red clips Details WBOS a/p weightshifting; R DF w/ L toe touch Reps/Duration 3 min Comments R soft knee focus Trialed L DF w/ R toe touch to compare and provide biofeedback. Therapeutic Exercises Standing Exercises BRANDI ankle Reps/Minutes 30x2 band walk Resistance Tb #2 at ankles Reps/Minutes 20 ft x2 Comments soft knee, vc for upright posture vs lateral lean. double heel raise Standing Exercise Name 50%-50% weightbearing up, 75% WB on surgical leg for eccentric loading Reps/Minutes x5 Comments on stair with rail Manual Therapy Treatment Soft Tissue Mobilization achilles Body Location R Comments gastroc/soleus complex with focus on achilles insertion and scar tissue massage to reduce adhesions and improve ankle mobility. Neuro Re-Education Treatment Balance Activities tilt board Details a/p and m/l double leg Reps/Duration 3x1 min single leg balance Details 10x3 Comments wall close for touch down PT-OP-R Modalities Start: 06/03/22 10:28 Freq: Status: Active Protocol: Document 06/05/22 07:31 SP (Rec: 06/05/22 08:20 SP [id number]) Hot Pack/Cold Pack Treatment Cold Pack Location R ankle/achilles Patient Position Supine Treatment Duration (minutes) 10 Patient Tolerance Good PT-OP-T Assessment and Plan Start: 05/20/22 11:19 Freq: Status: Active Protocol: Document 06/30/22 09:51 AMB (Rec: 06/30/22 10:34 AMB [id number]) Physical Therapy Assessment Goals Three Impairment Strength Short Term Goal (STG) Alycia will perform 1 single leg heel raise to show improved plantarflexion strength. STG Duration 4 weeks Cv Tech Goal (LTG) Alycia will perform gentle plyometric exercises (ex jumping jacks, jump rope) without an increase in achilles pain. LTG Duration 10 weeks Two Impairment Balance Short Term Goal (STG) Alycia will show improved balance by demonstrating balancing on a single leg for 20 seconds+. STG Duration 4 weeks One Impairment Gait Short Term Goal (STG) Alycia will ambulate over uneven surfaces including curb steps for 6 minutes without antalgia. STG Duration MET Skilled Nursing Goal (LTG) Alycia will jog for 30 seconds to keep up with her children without pain. LTG Duration 10 weeks Assessment Summary Assessment Pt tolerated increased resistance today without increase in pain. She is also tolerating more activity at home, with some increase in calf discomfort, but none over the achilles. Encouraged pt in gentle increase in activity both at home and in PT. PT is doing up to 20 bilateral calf raises at home at this point. Physical Therapy Plan Frequency and Duration Frequency of Treatment 2x/Week Duration of treatment (weeks) 10 Plan of Care Start Date 05/20/22 Plan of Care End Date 07/29/22 Therapeutic Interventions Therapeutic Interventions Balance Training,Gait Training ,Home Exercise Program,Manual Therapy,Neuromuscular Re- education,Self-Care/Home Management,Therapeutic Activities,Therapeutic Exercises Modalities Cold Pack/Ice Massage,Electric Stimulation,Hot Packs, Ultrasound Next Visit Focus/Plan Next Note Type Treatment Note Next Visit Plan Start with balance training, gentle plantarflexion strengthening, gait training, swelling/pain management.
--- NOTE | 2022-07-03 10:51 | PT.OTN ---
Current Diagnoses Unspecified injury of right Achilles tendon, initial encounter (07/03/22) Physical Therapy Treatment Note PT-OP-A Visit Information Start: 05/20/22 11:19 Freq: Status: Active Protocol: Document 07/03/22 10:02 NBM (Rec: 07/03/22 10:50 NBM [id number]) Out-Patient Physical Therapy Visit Information Visit Information Visit Type Treatment Note Visit Start Time 10:00 Visit Stop Time 10:40 Total Visit Minutes 45 Visit Number 10 Number of LIBRARY CIRCULATION ASSISTANT Visits 1 PT-OP-B Current Condition Start: 05/20/22 11:19 Freq: Status: Active Protocol: Document 05/20/22 11:20 AMB (Rec: 05/20/22 11:33 AMB [id number]) Current Condition History of Current Condition Onset Date 03/20/21 Current Complaints R achilles repair History of Current Condition December of 2020 had first surgery , did PT, went back to work. Was on feet 40 hrs/week and pain increased significantly. Had second surgery 2 months ago, WBAT d/eduar walking boot 2 weeks ago, has not yet returned to work. Goals of being on the trampoline, running after kids. A little bit sore at the end of the day . Hasn't been working for almost a year because of the pain. Is wearing tennis shoes and a compression sock, no AD. Prior Functional Status Baseline Function- ADL's Independent Baseline Function- Mobility Independent Current Functional Impairments (Reported) Functional Limitations- ADL's difficulty walking, keeping up with kids Personal Factors Other Personal Factors That May Effect Asthma, hx gallbladder 2006, Therapy/Recovery hx weightloss surgery PT-OP-C Subjective Start: 05/20/22 11:19 Freq: Status: Active Protocol: Document 07/03/22 10:02 NBM (Rec: 07/03/22 10:50 NB [id number]) OP-PT Subjective Patient Comments Patient Comments Pt states she didn't give herself adequate time to stretch this morning and is more stiff as a result. Single leg is still challenging, double leg is getting. She has a sinus infection right now and has been drinking lots of water. PT-OP-D Balance Start: 05/20/22 11:43 Freq: Status: Active Protocol: Document 05/20/22 11:15 AMB (Rec: 05/22/22 15:40 AMB [id number]) Balance Tests Single Limb Standing Single Limb- Right 5 PT-OP-J Posture/Palpation/Skin Start: 05/20/22 11:43 Freq: Status: Active Protocol: Document 05/20/22 11:15 AMB (Rec: 05/22/22 15:40 AMB [id number]) Skin Assessment Incisional Assessment Incision Appearance/Comments swelling at achilles palpable, scar from most recent surgery healing well, there is also a scar from previous surgery and from a recent large blister. PT-OP-K Range of Motion Start: 05/20/22 11:19 Freq: Status: Active Protocol: Document 05/20/22 11:15 AMB (Rec: 05/20/22 12:08 AMB [id number]) Ankle and Foot Goniometric Range of Motion Ankle and Foot Right Active Testing Position Sitting Dorsiflexion with Knee Flexed 5 Plantarflexion 50 PT-OP-M Strength Start: 05/20/22 11:43 Freq: Status: Active Protocol: Document 05/20/22 11:15 AMB (Rec: 05/20/22 12:08 AMB [id number]) Ankle/Foot Strength Ankle and Foot Manual Muscle Testing Right Dorsiflexion (L4) 5 Normal Plantarflexion (S1) 4- Good- Inversion 4 Good Eversion (S1) 4 Good PT-OP-Q Treatments Start: 05/20/22 11:19 Freq: Status: Active Protocol: Document 07/03/22 10:02 NBM (Rec: 07/03/22 10:50 NBM [id number]) Gym Equipment Shuttle Recovery Bilateral Heel Raises Details heels off platform tolerant slow ROM Resistance 62 Shuttle Recovery Platform Stable Reps/Time 2x10 Unilateral Heel Raises Details heels off platform Resistance 37 Shuttle Recovery Platform Stable Reps/Time 2x10 Shuttle Balance Red clips Details WBOS a/p weightshifting; R DF w/ L toe touch Reps/Duration 3 min Comments R soft knee focus Trialed L DF w/ R toe touch to compare and provide biofeedback. (R DF more sore today than usual.) Therapeutic Exercises Standing Exercises mini squats Equipment Used w/ handrail, mesh chair for target/feeback Reps/Minutes 10 Comments tolerated well, cued form hip hinge BRANDI ankle Reps/Minutes 30x2 band walk Resistance Tb #2 at ankles Reps/Minutes 20 ft x2 Comments soft knee, vc for upright posture vs lateral lean. double heel raise Standing Exercise Name 50%-50% weightbearing up, 75% WB on surgical leg for eccentric loading Reps/Minutes 2x5 w/ rest break in between Comments on stair with rail Manual Therapy Treatment Soft Tissue Mobilization achilles Body Location R Comments gastroc/soleus complex with focus on achilles insertion and scar tissue massage to reduce adhesions and improve ankle mobility. PT-OP-R Modalities Start: 06/03/22 10:28 Freq: Status: Active Protocol: Document 06/05/22 07:31 SP (Rec: 06/05/22 08:20 SP [id number]) Hot Pack/Cold Pack Treatment Cold Pack Location R ankle/achilles Patient Position Supine Treatment Duration (minutes) 10 Patient Tolerance Good PT-OP-T Assessment and Plan Start: 05/20/22 11:19 Freq: Status: Active Protocol: Document 07/03/22 10:02 NBM (Rec: 07/03/22 10:50 NBM [id number]) Physical Therapy Assessment Goals Three Impairment Strength Short Term Goal (STG) Alycia will perform 1 single leg heel raise to show improved plantarflexion strength. STG Duration 4 weeks Nursing Home Goal (LTG) Alycia will perform gentle plyometric exercises (ex jumping jacks, jump rope) without an increase in achilles pain. LTG Duration 10 weeks Two Impairment Balance Short Term Goal (STG) Alycia will show improved balance by demonstrating balancing on a single leg for 20 seconds+. STG Duration 4 weeks One Impairment Gait Short Term Goal (STG) Alycia will ambulate over uneven surfaces including curb steps for 6 minutes without antalgia. STG Duration MET Nursing Home Goal (LTG) Alycia will jog for 30 seconds to keep up with her children without pain. LTG Duration 10 weeks Assessment Summary Assessment Pt tolerates resisted ex's without increased pain or stiffness in Achilles, some increased soreness in calf/ soleus. Pt's posterior LLE touches chair target before RLE w/ mini squat - pt improves equal weight bearing with treatment. Improved lateral weight shifting with resisted sidestepping. Physical Therapy Plan Frequency and Duration Frequency of Treatment 2x/Week Duration of treatment (weeks) 10 Plan of Care Start Date 05/20/22 Plan of Care End Date 07/29/22 Therapeutic Interventions Therapeutic Interventions Balance Training,Gait Training ,Home Exercise Program,Manual Therapy,Neuromuscular Re- education,Self-Care/Home Management,Therapeutic Activities,Therapeutic Exercises Modalities Cold Pack/Ice Massage,Electric Stimulation,Hot Packs, Ultrasound Next Visit Focus/Plan Next Note Type Treatment Note Next Visit Plan Start with balance training, gentle plantarflexion strengthening, gait training, swelling/pain management.
--- NOTE | 2022-07-14 11:22 | PT.OTN ---
Current Diagnoses Unspecified injury of right Achilles tendon, initial encounter (07/14/22) Physical Therapy Treatment Note PT-OP-A Visit Information Start: 05/20/22 11:19 Freq: Status: Active Protocol: Document 07/14/22 10:40 NBM (Rec: 07/14/22 11:21 NBM [id number]) Out-Patient Physical Therapy Visit Information Visit Information Visit Type Treatment Note Visit Start Time 10:40 Visit Stop Time 11:20 Total Visit Minutes 40 Visit Number 11 Number of NURSE MANAGER Visits 2 PT-OP-B Current Condition Start: 05/20/22 11:19 Freq: Status: Active Protocol: Document 05/20/22 11:20 AMB (Rec: 05/20/22 11:33 AMB [id number]) Current Condition History of Current Condition Onset Date 03/20/21 Current Complaints R achilles repair History of Current Condition December of 2020 had first surgery , did PT, went back to work. Was on feet 40 hrs/week and pain increased significantly. Had second surgery 2 months ago, WBAT d/eduar walking boot 2 weeks ago, has not yet returned to work. Goals of being on the trampoline, running after kids. A little bit sore at the end of the day . Hasn't been working for almost a year because of the pain. Is wearing tennis shoes and a compression sock, no AD. Prior Functional Status Baseline Function- ADL's Independent Baseline Function- Mobility Independent Current Functional Impairments (Reported) Functional Limitations- ADL's difficulty walking, keeping up with kids Personal Factors Other Personal Factors That May Effect Asthma, hx gallbladder 2006, Therapy/Recovery hx weightloss surgery PT-OP-C Subjective Start: 05/20/22 11:19 Freq: Status: Active Protocol: Document 07/14/22 10:40 NBM (Rec: 07/14/22 11:21 NBM [id number]) OP-PT Subjective Patient Comments Patient Comments Pt's new work is - Wed so she will need to adjust down to one time/week on Mondays. Pt is up to 6-7K steps/day from 3-4K steps/day. Her goal is 10K steps/day. PT-OP-D Balance Start: 05/20/22 11:43 Freq: Status: Active Protocol: Document 05/20/22 11:15 AMB (Rec: 05/22/22 15:40 AMB [id number]) Balance Tests Single Limb Standing Single Limb- Right 5 PT-OP-J Posture/Palpation/Skin Start: 05/20/22 11:43 Freq: Status: Active Protocol: Document 05/20/22 11:15 AMB (Rec: 05/22/22 15:40 AMB [id number]) Skin Assessment Incisional Assessment Incision Appearance/Comments swelling at achilles palpable, scar from most recent surgery healing well, there is also a scar from previous surgery and from a recent large blister. PT-OP-K Range of Motion Start: 05/20/22 11:19 Freq: Status: Active Protocol: Document 05/20/22 11:15 AMB (Rec: 05/20/22 12:08 AMB [id number]) Ankle and Foot Goniometric Range of Motion Ankle and Foot Right Active Testing Position Sitting Dorsiflexion with Knee Flexed 5 Plantarflexion 50 PT-OP-M Strength Start: 05/20/22 11:43 Freq: Status: Active Protocol: Document 05/20/22 11:15 AMB (Rec: 05/20/22 12:08 AMB [id number]) Ankle/Foot Strength Ankle and Foot Manual Muscle Testing Right Dorsiflexion (L4) 5 Normal Plantarflexion (S1) 4- Good- Inversion 4 Good Eversion (S1) 4 Good PT-OP-Q Treatments Start: 05/20/22 11:19 Freq: Status: Active Protocol: Document 07/14/22 10:40 NBM (Rec: 07/14/22 11:21 NBM [id number]) Gym Equipment Shuttle Recovery Bilateral Heel Raises Details heels off platform tolerant slow ROM Resistance 62 (one new band) Shuttle Recovery Platform Stable Reps/Time 2x10 Unilateral Heel Raises Details heels off platform Resistance 37 (1 new band) Shuttle Recovery Platform Stable Reps/Time 2x10 Therapeutic Exercises Sitting Exercises 4 way ankle Side right Resistance #3 TB>#4 TB Reps/Minutes x10 each Comments pt reports #3 feels easy, good ecc control Standing Exercises mini squats Equipment Used w/ handrail, mesh chair for target/feeback Reps/Minutes 10 Comments tolerated well, good form fwd lunges Equipment Used visual feedback Reps/Minutes 10 Comments railing BRANDI ankle Reps/Minutes 30x2 Comments neutral and toes in band walk Resistance Tb #2 at ankles Reps/Minutes 20 ft x2 Comments soft knee, vc for upright posture vs lateral lean. SLS Equipment Used // bars Reps/Minutes 2x30s ea Comments no UE support ankle mobility Standing Exercise Name various angles Equipment Used foot on 16 box Comments good feedback stretch double heel raise Standing Exercise Name 50%-50% weightbearing up, 75% WB on surgical leg for eccentric loading Reps/Minutes x5 100% down on R, x5 75% down on R Comments on stair with rail, it doesn' t hurt, I can feel a stretch a different way PT-OP-R Modalities Start: 06/03/22 10:28 Freq: Status: Active Protocol: Document 06/05/22 07:31 SP (Rec: 06/05/22 08:20 SP [id number]) Hot Pack/Cold Pack Treatment Cold Pack Location R ankle/achilles Patient Position Supine Treatment Duration (minutes) 10 Patient Tolerance Good PT-OP-T Assessment and Plan Start: 05/20/22 11:19 Freq: Status: Active Protocol: Document 07/14/22 10:40 NBM (Rec: 07/14/22 11:21 NBM [id number]) Physical Therapy Assessment Goals Three Impairment Strength Short Term Goal (STG) Alycia will perform 1 single leg heel raise to show improved plantarflexion strength. STG Duration 4 weeks Soc Analyst Goal (LTG) Alycia will perform gentle plyometric exercises (ex jumping jacks, jump rope) without an increase in achilles pain. LTG Duration 10 weeks Two Impairment Balance Short Term Goal (STG) Alycia will show improved balance by demonstrating balancing on a single leg for 20 seconds+. STG Duration 4 weeks One Impairment Gait Short Term Goal (STG) Alycia will ambulate over uneven surfaces including curb steps for 6 minutes without antalgia. STG Duration MET Intermediate Goal (LTG) Alycia will jog for 30 seconds to keep up with her children without pain. LTG Duration 10 weeks Assessment Summary Assessment Pt demonstrates improving ankle strength with increased 4-way ankle from Lvl 3>Lvl 4Tb . Pt is also able to tolerated increased weightbearing from 75% to 100% eccentric. Physical Therapy Plan Frequency and Duration Frequency of Treatment 2x/Week Duration of treatment (weeks) 10 Plan of Care Start Date 05/20/22 Plan of Care End Date 07/29/22 Therapeutic Interventions Therapeutic Interventions Balance Training,Gait Training ,Home Exercise Program,Manual Therapy,Neuromuscular Re- education,Self-Care/Home Management,Therapeutic Activities,Therapeutic Exercises Modalities Cold Pack/Ice Massage,Electric Stimulation,Hot Packs, Ultrasound Next Visit Focus/Plan Next Note Type Treatment Note Next Visit Plan Start with balance training, gentle plantarflexion strengthening, gait training, swelling/pain management.
--- NOTE | 2022-08-10 11:47 | PT-OP ANOTE ---
Today's appt cancelled due to POC. WIll follow up with PT next visit.
--- NOTE | 2022-08-18 21:28 | PT.OTN ---
Current Diagnoses Unspecified injury of right Achilles tendon, initial encounter (08/18/22) Physical Therapy Treatment Note PT-OP-A Visit Information Start: 05/20/22 11:19 Freq: Status: Active Protocol: Document 08/18/22 11:24 AMB (Rec: 08/18/22 12:01 AMB [id number]) Out-Patient Physical Therapy Visit Information Visit Information Visit Type Progress Note Visit Start Time 11:20 Visit Stop Time 12:00 Total Visit Minutes 40 Visit Number 13 Number of DISASTER RECOVERY MANAGER Visits 0 PT-OP-B Current Condition Start: 05/20/22 11:19 Freq: Status: Active Protocol: Document 05/20/22 11:20 AMB (Rec: 05/20/22 11:33 AMB [id number]) Current Condition History of Current Condition Onset Date 03/20/21 Current Complaints R achilles repair History of Current Condition December of 2020 had first surgery , did PT, went back to work. Was on feet 40 hrs/week and pain increased significantly. Had second surgery 2 months ago, WBAT d/eduar walking boot 2 weeks ago, has not yet returned to work. Goals of being on the trampoline, running after kids. A little bit sore at the end of the day . Hasn't been working for almost a year because of the pain. Is wearing tennis shoes and a compression sock, no AD. Prior Functional Status Baseline Function- ADL's Independent Baseline Function- Mobility Independent Current Functional Impairments (Reported) Functional Limitations- ADL's difficulty walking, keeping up with kids Personal Factors Other Personal Factors That May Effect Asthma, hx gallbladder 2006, Therapy/Recovery hx weightloss surgery PT-OP-C Subjective Start: 05/20/22 11:19 Freq: Status: Active Protocol: Document 08/18/22 11:24 AMB (Rec: 08/18/22 12:01 AMB [id number]) OP-PT Subjective Patient Comments Patient Comments Pt is doing well PT-OP-D Balance Start: 05/20/22 11:43 Freq: Status: Active Protocol: Document 05/20/22 11:15 AMB (Rec: 05/22/22 15:40 AMB [id number]) Balance Tests Single Limb Standing Single Limb- Right 5 PT-OP-J Posture/Palpation/Skin Start: 05/20/22 11:43 Freq: Status: Active Protocol: Document 05/20/22 11:15 AMB (Rec: 05/22/22 15:40 AMB [id number]) Skin Assessment Incisional Assessment Incision Appearance/Comments swelling at achilles palpable, scar from most recent surgery healing well, there is also a scar from previous surgery and from a recent large blister. PT-OP-K Range of Motion Start: 05/20/22 11:19 Freq: Status: Active Protocol: Document 05/20/22 11:15 AMB (Rec: 05/20/22 12:08 AMB [id number]) Ankle and Foot Goniometric Range of Motion Ankle and Foot Right Active Testing Position Sitting Dorsiflexion with Knee Flexed 5 Plantarflexion 50 PT-OP-M Strength Start: 05/20/22 11:43 Freq: Status: Active Protocol: Document 05/20/22 11:15 AMB (Rec: 05/20/22 12:08 AMB [id number]) Ankle/Foot Strength Ankle and Foot Manual Muscle Testing Right Dorsiflexion (L4) 5 Normal Plantarflexion (S1) 4- Good- Inversion 4 Good Eversion (S1) 4 Good PT-OP-Q Treatments Start: 05/20/22 11:19 Freq: Status: Active Protocol: Document 08/18/22 11:24 AMB (Rec: 08/18/22 12:01 AMB [id number]) Cardio Equipment Treadmill Duration (Minutes) 6 Speed 2 Other less push off on the R Gym Equipment Shuttle Recovery Bilateral Heel Raises Details heels off platform tolerant slow ROM Resistance 62 (one new band) Shuttle Recovery Platform Stable Reps/Time 2x10 Unilateral Heel Raises Details heels off platform Resistance 37 (1 new band) Shuttle Recovery Platform Stable Reps/Time 2x10 Therapeutic Exercises Standing Exercises bosu ball Standing Exercise Name double leg heel raise Reps/Minutes 10 double leg hop Reps/Minutes 10 Comments gentle, small SLS Equipment Used // bars Reps/Minutes 2x30s ea Comments no UE support double heel raise Standing Exercise Name 25-75% mostly WB on surgical leg Reps/Minutes 2x10 on stair PT-OP-R Modalities Start: 06/03/22 10:28 Freq: Status: Active Protocol: Document 06/05/22 07:31 SP (Rec: 06/05/22 08:20 SP [id number]) Hot Pack/Cold Pack Treatment Cold Pack Location R ankle/achilles Patient Position Supine Treatment Duration (minutes) 10 Patient Tolerance Good PT-OP-T Assessment and Plan Start: 05/20/22 11:19 Freq: Status: Active Protocol: Document 08/18/22 11:24 AMB (Rec: 08/18/22 12:01 AMB [id number]) Physical Therapy Assessment Goals Three Impairment Strength Short Term Goal (STG) Alycia will perform 1 single leg heel raise to show improved plantarflexion strength. STG Duration Progress made- pt can do 50# but not full body weight Dental Instrument Maker Goal (LTG) Alycia will perform gentle plyometric exercises (ex jumping jacks, jump rope) without an increase in achilles pain. LTG Duration Progress made- just started double leg hopping Two Impairment Balance Short Term Goal (STG) Alycia will show improved balance by demonstrating balancing on a single leg for 20 seconds+. STG Duration MET One Impairment Gait Short Term Goal (STG) Alycia will ambulate over uneven surfaces including curb steps for 6 minutes without antalgia. STG Duration MET [facility] Goal (LTG) Alycia will jog for 30 seconds to keep up with her children without pain. LTG Duration MET Assessment Summary Assessment Alycia has met the majority of her goals, but continues to have weakness in her calf that makes single leg activities more difficult. She does have mild swelling and discomfort after extended walking. Balance is progressing appropriately, but higher level activities like hopping and walking longer distances continue to be challenging. Pt will benefit from continued PT to finalize her HEP and help her have the confidence to continue to progress her exercise independently. Physical Therapy Plan Frequency and Duration Frequency of Treatment 1x/Week Duration of treatment (weeks) 6 Plan of Care Start Date 08/18/22 Plan of Care End Date 09/29/22 Therapeutic Interventions Therapeutic Interventions Balance Training,Gait Training ,Home Exercise Program,Manual Therapy,Neuromuscular Re- education,Self-Care/Home Management,Therapeutic Activities,Therapeutic Exercises Modalities Cold Pack/Ice Massage,Electric Stimulation,Hot Packs, Ultrasound Next Visit Focus/Plan Next Note Type Treatment Note Next Visit Plan Progress plyometrics, encourage single leg calf raise strength, push off with gait
--- NOTE | 2022-08-18 21:29 | PT.OPPOC ---
Physical, Occupational & Speech Therapy At [facility] Current Diagnoses Unspecified injury of right Achilles tendon, initial encounter (08/18/22) Visit Care Team Role Provider Type Ronald Braswell PA-C Family Provider Non-Staff Primary Care Provider Specialty: Medical Address: [address] [place] [address], [id number] Email: Donny Deng DPM Attending Provider Non-Staff Referring Provider Specialty: Podiatry Address: [address] [place] [address], [phone] Email: Plan Of Care PT-OP-T Assessment and Plan Start: 05/20/22 11:19 Freq: Status: Active Protocol: Document 08/18/22 11:24 AMB (Rec: 08/18/22 12:01 AMB [id number]) Physical Therapy Assessment Goals Three Impairment Strength Short Term Goal (STG) Alycia will perform 1 single leg heel raise to show improved plantarflexion strength. STG Duration Progress made- pt can do 50# but not full body weight Detention Goal (LTG) Alycia will perform gentle plyometric exercises (ex jumping jacks, jump rope) without an increase in achilles pain. LTG Duration Progress made- just started double leg hopping Two Impairment Balance Short Term Goal (STG) Alycia will show improved balance by demonstrating balancing on a single leg for 20 seconds+. STG Duration MET One Impairment Gait Short Term Goal (STG) Alycia will ambulate over uneven surfaces including curb steps for 6 minutes without antalgia. STG Duration MET Detention Goal (LTG) Alycia will jog for 30 seconds to keep up with her children without pain. LTG Duration MET Assessment Summary Assessment Alycia has met the majority of her goals, but continues to have weakness in her calf that makes single leg activities more difficult. She does have mild swelling and discomfort after extended walking. Balance is progressing appropriately, but higher level activities like hopping and walking longer distances continue to be challenging. Pt will benefit from continued PT to finalize her HEP and help her have the confidence to continue to progress her exercise independently. Physical Therapy Plan Frequency and Duration Frequency of Treatment 1x/Week Duration of treatment (weeks) 6 Plan of Care Start Date 08/18/22 Plan of Care End Date 09/29/22 Therapeutic Interventions Therapeutic Interventions Balance Training,Gait Training ,Home Exercise Program,Manual Therapy,Neuromuscular Re- education,Self-Care/Home Management,Therapeutic Activities,Therapeutic Exercises Modalities Cold Pack/Ice Massage,Electric Stimulation,Hot Packs, Ultrasound Next Visit Focus/Plan Next Note Type Treatment Note Next Visit Plan Progress plyometrics, encourage single leg calf raise strength, push off with gait Plan of Care Dates Plan of Care Start Date 08/18/22 Plan of Care End Date 09/29/22 Electronically Signed by: Danae Roche, PT 08/18/22 9021 If you are in agreement with this Plan of Care, please return a signed and dated copy. I have reviewed this Plan of Care and certify that the skilled therapy services above are required to meet the patient?s needs. Physician Signature Date Printed Name and Credentials Clinical Instructor Signature Printed Name and Credentials
--- NOTE | 2022-08-24 12:20 | PT.OTN ---
Current Diagnoses Unspecified injury of right Achilles tendon, initial encounter (08/24/22) Physical Therapy Treatment Note PT-OP-A Visit Information Start: 05/20/22 11:19 Freq: Status: Active Protocol: Document 08/24/22 11:16 NBM (Rec: 08/24/22 12:16 NBM [id number]) Out-Patient Physical Therapy Visit Information Visit Information Visit Type Treatment Note Visit Start Time 11:20 Visit Stop Time 12:04 Total Visit Minutes 44 Visit Number 14 Number of JEWELRY DIPPER Visits 1 PT-OP-B Current Condition Start: 05/20/22 11:19 Freq: Status: Active Protocol: Document 05/20/22 11:20 AMB (Rec: 05/20/22 11:33 AMB [id number]) Current Condition History of Current Condition Onset Date 03/20/21 Current Complaints R achilles repair History of Current Condition December of 2020 had first surgery , did PT, went back to work. Was on feet 40 hrs/week and pain increased significantly. Had second surgery 2 months ago, WBAT d/eduar walking boot 2 weeks ago, has not yet returned to work. Goals of being on the trampoline, running after kids. A little bit sore at the end of the day . Hasn't been working for almost a year because of the pain. Is wearing tennis shoes and a compression sock, no AD. Prior Functional Status Baseline Function- ADL's Independent Baseline Function- Mobility Independent Current Functional Impairments (Reported) Functional Limitations- ADL's difficulty walking, keeping up with kids Personal Factors Other Personal Factors That May Effect Asthma, hx gallbladder 2006, Therapy/Recovery hx weightloss surgery PT-OP-C Subjective Start: 05/20/22 11:19 Freq: Status: Active Protocol: Document 08/24/22 11:16 NBM (Rec: 08/24/22 12:16 NBM [id number]) OP-PT Subjective Patient Comments Patient Comments Pt reports they are doing well . They had no increased pain or soreness after the last visit, and have started light stationary jumping. They also started light running after children, and have increased steps from ~5K to 8K steps. Increased walks since Wednesday last week and can tolerate the increased activity. They stretch before going out to do anything and feel like stretching has helped a lot. Pt has started wearing low tennis shoes a week and a half ago and it doesn't bother the bottom of her foot or heel. Pt reports she jump roped last Wednesday. PT-OP-D Balance Start: 05/20/22 11:43 Freq: Status: Active Protocol: Document 05/20/22 11:15 AMB (Rec: 05/22/22 15:40 AMB [id number]) Balance Tests Single Limb Standing Single Limb- Right 5 PT-OP-J Posture/Palpation/Skin Start: 05/20/22 11:43 Freq: Status: Active Protocol: Document 05/20/22 11:15 AMB (Rec: 05/22/22 15:40 AMB [id number]) Skin Assessment Incisional Assessment Incision Appearance/Comments swelling at achilles palpable, scar from most recent surgery healing well, there is also a scar from previous surgery and from a recent large blister. PT-OP-K Range of Motion Start: 05/20/22 11:19 Freq: Status: Active Protocol: Document 05/20/22 11:15 AMB (Rec: 05/20/22 12:08 AMB [id number]) Ankle and Foot Goniometric Range of Motion Ankle and Foot Right Active Testing Position Sitting Dorsiflexion with Knee Flexed 5 Plantarflexion 50 PT-OP-M Strength Start: 05/20/22 11:43 Freq: Status: Active Protocol: Document 05/20/22 11:15 AMB (Rec: 05/20/22 12:08 AMB [id number]) Ankle/Foot Strength Ankle and Foot Manual Muscle Testing Right Dorsiflexion (L4) 5 Normal Plantarflexion (S1) 4- Good- Inversion 4 Good Eversion (S1) 4 Good PT-OP-Q Treatments Start: 05/20/22 11:19 Freq: Status: Active Protocol: Document 08/24/22 11:16 NBM (Rec: 08/24/22 12:16 NBM [id number]) Cardio Equipment Treadmill Duration (Minutes) 6 Speed 2 Other less push off on the R Gym Equipment Shuttle Recovery Bilateral Heel Raises Details heels off platform tolerant slow ROM Resistance 62 (two new band) Shuttle Recovery Platform Stable Reps/Time 2x10 Unilateral Heel Raises Details heels off platform Resistance 37 (1 new band) Shuttle Recovery Platform Stable Reps/Time 2x10 Therapeutic Exercises Standing Exercises Uni heel raise Side right Equipment Used 6 step Reps/Minutes x10 Comments cues for breathwork, challenging, no pain reported bosu ball Standing Exercise Name 1. double leg heel raise 2. nataly squats Equipment Used BOSU - blue Reps/Minutes x10 ea Comments cue slow eccentric double heel raise Standing Exercise Name 25-75% mostly WB on surgical leg Reps/Minutes x10 ecc nataly, x10 ecc SLS R only Neuro Re-Education Treatment Balance Activities therapads Surface green, blue, black course Equipment // bars Reps/Duration ~x6 Comments Cues for slower pacing and upright posture for head down. PT-OP-R Modalities Start: 06/03/22 10:28 Freq: Status: Active Protocol: Document 06/05/22 07:31 SP (Rec: 06/05/22 08:20 SP [id number]) Hot Pack/Cold Pack Treatment Cold Pack Location R ankle/achilles Patient Position Supine Treatment Duration (minutes) 10 Patient Tolerance Good PT-OP-T Assessment and Plan Start: 05/20/22 11:19 Freq: Status: Active Protocol: Document 08/24/22 11:16 NBM (Rec: 08/24/22 12:16 NBM [id number]) Physical Therapy Assessment Goals Three Impairment Strength Short Term Goal (STG) Alycia will perform 1 single leg heel raise to show improved plantarflexion strength. 08/24/22: pt performed R SL heel raise x10 with UE support . STG Duration Progress made- pt can do 50# but not full body weight Burlap Roll Coverer Goal (LTG) Alycia will perform gentle plyometric exercises (ex jumping jacks, jump rope) without an increase in achilles pain. LTG Duration Progress made- just started double leg hopping Two Impairment Balance Short Term Goal (STG) Alycia will show improved balance by demonstrating balancing on a single leg for 20 seconds+. STG Duration MET One Impairment Gait Short Term Goal (STG) Alycia will ambulate over uneven surfaces including curb steps for 6 minutes without antalgia. STG Duration MET Burlap Roll Coverer Goal (LTG) Alycia will jog for 30 seconds to keep up with her children without pain. LTG Duration MET Assessment Summary Assessment Alycia is continuing to progress towards possible discharge. Pt performed R SL heel raise x10 with UE support - STG of one SL heel raise met. Pt requires cues for slower pacing and upright posture for head down w/ obtacle course and balance is challenged with slower pacing. Pt tolerates all activity today without increase in baseline symptoms. Physical Therapy Plan Frequency and Duration Frequency of Treatment 1x/Week Duration of treatment (weeks) 6 Plan of Care Start Date 08/18/22 Plan of Care End Date 09/29/22 Therapeutic Interventions Therapeutic Interventions Balance Training,Gait Training ,Home Exercise Program,Manual Therapy,Neuromuscular Re- education,Self-Care/Home Management,Therapeutic Activities,Therapeutic Exercises Modalities Cold Pack/Ice Massage,Electric Stimulation,Hot Packs, Ultrasound Next Visit Focus/Plan Next Note Type Treatment Note Next Visit Plan Progress plyometrics, encourage single leg calf raise strength, push off with gait
--- NOTE | 2022-08-31 11:54 | PT.OTN ---
Current Diagnoses Unspecified injury of right Achilles tendon, initial encounter (08/31/22) Physical Therapy Treatment Note PT-OP-A Visit Information Start: 05/20/22 11:19 Freq: Status: Active Protocol: Document 08/31/22 11:15 AMB (Rec: 08/31/22 11:54 AMB [id number]) Out-Patient Physical Therapy Visit Information Visit Information Visit Type Treatment Note Visit Start Time 11:15 Visit Stop Time 12:00 Total Visit Minutes 45 Visit Number 15 Number of ANESTHESIA TECH Visits 0 PT-OP-B Current Condition Start: 05/20/22 11:19 Freq: Status: Active Protocol: Document 05/20/22 11:20 AMB (Rec: 05/20/22 11:33 AMB [id number]) Current Condition History of Current Condition Onset Date 03/20/21 Current Complaints R achilles repair History of Current Condition December of 2020 had first surgery , did PT, went back to work. Was on feet 40 hrs/week and pain increased significantly. Had second surgery 2 months ago, WBAT d/eduar walking boot 2 weeks ago, has not yet returned to work. Goals of being on the trampoline, running after kids. A little bit sore at the end of the day . Hasn't been working for almost a year because of the pain. Is wearing tennis shoes and a compression sock, no AD. Prior Functional Status Baseline Function- ADL's Independent Baseline Function- Mobility Independent Current Functional Impairments (Reported) Functional Limitations- ADL's difficulty walking, keeping up with kids Personal Factors Other Personal Factors That May Effect Asthma, hx gallbladder 2006, Therapy/Recovery hx weightloss surgery PT-OP-C Subjective Start: 05/20/22 11:19 Freq: Status: Active Protocol: Document 08/31/22 11:15 AMB (Rec: 08/31/22 11:54 AMB [id number]) OP-PT Subjective Patient Comments Patient Comments Pt continues to progress her exercise, continues to be able to run after her kids and do a couple jumps. PT-OP-D Balance Start: 05/20/22 11:43 Freq: Status: Active Protocol: Document 05/20/22 11:15 AMB (Rec: 05/22/22 15:40 AMB [id number]) Balance Tests Single Limb Standing Single Limb- Right 5 PT-OP-J Posture/Palpation/Skin Start: 05/20/22 11:43 Freq: Status: Active Protocol: Document 05/20/22 11:15 AMB (Rec: 05/22/22 15:40 AMB [id number]) Skin Assessment Incisional Assessment Incision Appearance/Comments swelling at achilles palpable, scar from most recent surgery healing well, there is also a scar from previous surgery and from a recent large blister. PT-OP-K Range of Motion Start: 05/20/22 11:19 Freq: Status: Active Protocol: Document 05/20/22 11:15 AMB (Rec: 05/20/22 12:08 AMB [id number]) Ankle and Foot Goniometric Range of Motion Ankle and Foot Right Active Testing Position Sitting Dorsiflexion with Knee Flexed 5 Plantarflexion 50 PT-OP-M Strength Start: 05/20/22 11:43 Freq: Status: Active Protocol: Document 05/20/22 11:15 AMB (Rec: 05/20/22 12:08 AMB [id number]) Ankle/Foot Strength Ankle and Foot Manual Muscle Testing Right Dorsiflexion (L4) 5 Normal Plantarflexion (S1) 4- Good- Inversion 4 Good Eversion (S1) 4 Good PT-OP-Q Treatments Start: 05/20/22 11:19 Freq: Status: Active Protocol: Document 08/31/22 11:15 AMB (Rec: 08/31/22 11:54 AMB [id number]) Gym Equipment Shuttle Recovery Other- 1 Details hopping SL and DL 50# Reps/Time 2x10 ea Therapeutic Exercises Standing Exercises single leg hops Standing Exercise Name forward Reps/Minutes 2x10 singe leg heel raise Reps/Minutes 10 Uni heel raise Side right Equipment Used 6 step Reps/Minutes x10 Comments cues for breathwork, challenging, no pain reported double leg hop Reps/Minutes 10 Comments gentle, small fwd lunges Equipment Used visual feedback Reps/Minutes 10 Comments railing double heel raise Reps/Minutes x10 ecc nataly, x10 ecc SLS R only PT-OP-R Modalities Start: 06/03/22 10:28 Freq: Status: Active Protocol: Document 06/05/22 07:31 SP (Rec: 06/05/22 08:20 SP [id number]) Hot Pack/Cold Pack Treatment Cold Pack Location R ankle/achilles Patient Position Supine Treatment Duration (minutes) 10 Patient Tolerance Good PT-OP-T Assessment and Plan Start: 05/20/22 11:19 Freq: Status: Active Protocol: Document 08/31/22 11:15 AMB (Rec: 08/31/22 11:54 AMB [id number]) Physical Therapy Assessment Goals Three Impairment Strength Short Term Goal (STG) Alycia will perform 1 single leg heel raise to show improved plantarflexion strength. 08/24/22: pt performed R SL heel raise x10 with UE support . STG Duration Progress made- pt can do 50# but not full body weight Pet Caregiver Goal (LTG) Alycia will perform gentle plyometric exercises (ex jumping jacks, jump rope) without an increase in achilles pain. LTG Duration Progress made- just started double leg hopping Two Impairment Balance Short Term Goal (STG) Alycia will show improved balance by demonstrating balancing on a single leg for 20 seconds+. STG Duration MET One Impairment Gait Short Term Goal (STG) Alycia will ambulate over uneven surfaces including curb steps for 6 minutes without antalgia. STG Duration MET Pet Caregiver Goal (LTG) Alycia will jog for 30 seconds to keep up with her children without pain. LTG Duration MET Assessment Summary Assessment Alycia is doing well, progressing with her strength and jumping, and running. She needs stretching breaks throughout, but was better able to tolerate single leg hopping activities. Physical Therapy Plan Frequency and Duration Frequency of Treatment 1x/Week Duration of treatment (weeks) 6 Plan of Care Start Date 08/18/22 Plan of Care End Date 09/29/22 Therapeutic Interventions Therapeutic Interventions Balance Training,Gait Training ,Home Exercise Program,Manual Therapy,Neuromuscular Re- education,Self-Care/Home Management,Therapeutic Activities,Therapeutic Exercises Modalities Cold Pack/Ice Massage,Electric Stimulation,Hot Packs, Ultrasound Next Visit Focus/Plan Next Note Type Treatment Note Next Visit Plan Progress plyometrics, encourage single leg calf raise strength, push off with gait
--- NOTE | 2022-09-07 10:54 | PT.OTN ---
Current Diagnoses Unspecified injury of right Achilles tendon, initial encounter (09/07/22) Physical Therapy Treatment Note PT-OP-A Visit Information Start: 05/20/22 11:19 Freq: Status: Active Protocol: Document 09/07/22 09:50 AMB (Rec: 09/07/22 10:28 AMB [id number]) Out-Patient Physical Therapy Visit Information Visit Information Visit Type Discharge Summary Visit Start Time 09:50 Visit Stop Time 10:30 Total Visit Minutes 40 Visit Number 16 PT-OP-B Current Condition Start: 05/20/22 11:19 Freq: Status: Active Protocol: Document 05/20/22 11:20 AMB (Rec: 05/20/22 11:33 AMB [id number]) Current Condition History of Current Condition Onset Date 03/20/21 Current Complaints R achilles repair History of Current Condition December of 2020 had first surgery , did PT, went back to work. Was on feet 40 hrs/week and pain increased significantly. Had second surgery 2 months ago, WBAT d/eduar walking boot 2 weeks ago, has not yet returned to work. Goals of being on the trampoline, running after kids. A little bit sore at the end of the day . Hasn't been working for almost a year because of the pain. Is wearing tennis shoes and a compression sock, no AD. Prior Functional Status Baseline Function- ADL's Independent Baseline Function- Mobility Independent Current Functional Impairments (Reported) Functional Limitations- ADL's difficulty walking, keeping up with kids Personal Factors Other Personal Factors That May Effect Asthma, hx gallbladder 2006, Therapy/Recovery hx weightloss surgery PT-OP-C Subjective Start: 05/20/22 11:19 Freq: Status: Active Protocol: Document 09/07/22 09:50 AMB (Rec: 09/07/22 10:28 AMB [id number]) OP-PT Subjective Patient Comments Patient Comments Pt is doing well 73/80 on LEFS . NO pain, biggest issue is just coordination of movement, getting strong enough to hop. PT-OP-D Balance Start: 05/20/22 11:43 Freq: Status: Active Protocol: Document 05/20/22 11:15 AMB (Rec: 05/22/22 15:40 AMB [id number]) Balance Tests Single Limb Standing Single Limb- Right 5 PT-OP-J Posture/Palpation/Skin Start: 05/20/22 11:43 Freq: Status: Active Protocol: Document 05/20/22 11:15 AMB (Rec: 05/22/22 15:40 AMB [id number]) Skin Assessment Incisional Assessment Incision Appearance/Comments swelling at achilles palpable, scar from most recent surgery healing well, there is also a scar from previous surgery and from a recent large blister. PT-OP-K Range of Motion Start: 05/20/22 11:19 Freq: Status: Active Protocol: Document 05/20/22 11:15 AMB (Rec: 05/20/22 12:08 AMB [id number]) Ankle and Foot Goniometric Range of Motion Ankle and Foot Right Active Testing Position Sitting Dorsiflexion with Knee Flexed 5 Plantarflexion 50 PT-OP-M Strength Start: 05/20/22 11:43 Freq: Status: Active Protocol: Document 05/20/22 11:15 AMB (Rec: 05/20/22 12:08 AMB [id number]) Ankle/Foot Strength Ankle and Foot Manual Muscle Testing Right Dorsiflexion (L4) 5 Normal Plantarflexion (S1) 4- Good- Inversion 4 Good Eversion (S1) 4 Good PT-OP-Q Treatments Start: 05/20/22 11:19 Freq: Status: Active Protocol: Document 09/07/22 09:50 AMB (Rec: 09/07/22 10:28 AMB [id number]) Gym Equipment Shuttle Recovery Other- 1 Details hopping SL and DL 50# Reps/Time 2x10 ea Bilateral Heel Raises Details heels off platform tolerant slow ROM Resistance 62 (two new band) Shuttle Recovery Platform Stable Reps/Time 2x10 Therapeutic Exercises Standing Exercises jumping jacks Reps/Minutes 5 Comments good tolerance skipping Standing Exercise Name challenging Reps/Minutes 5 min ladder drills Standing Exercise Name fwd/lateral double single leg hops Reps/Minutes 10 min single leg hops Standing Exercise Name forward Reps/Minutes 2x10 singe leg heel raise Reps/Minutes 10 PT-OP-R Modalities Start: 06/03/22 10:28 Freq: Status: Active Protocol: Document 06/05/22 07:31 SP (Rec: 06/05/22 08:20 SP [id number]) Hot Pack/Cold Pack Treatment Cold Pack Location R ankle/achilles Patient Position Supine Treatment Duration (minutes) 10 Patient Tolerance Good PT-OP-T Assessment and Plan Start: 05/20/22 11:19 Freq: Status: Active Protocol: Document 09/07/22 09:50 AMB (Rec: 09/07/22 10:28 AMB [id number]) Physical Therapy Assessment Goals Three Impairment Strength Short Term Goal (STG) Alycia will perform 1 single leg heel raise to show improved plantarflexion strength. 08/24/22: pt performed R SL heel raise x10 with UE support . STG Duration MET Senior Care Goal (LTG) Alycia will perform gentle plyometric exercises (ex jumping jacks, jump rope) without an increase in achilles pain. LTG Duration MET Two Impairment Balance Short Term Goal (STG) Alycia will show improved balance by demonstrating balancing on a single leg for 20 seconds+. STG Duration MET One Impairment Gait Short Term Goal (STG) Alycia will ambulate over uneven surfaces including curb steps for 6 minutes without antalgia. STG Duration MET Hardwood Finisher Goal (LTG) Alycia will jog for 30 seconds to keep up with her children without pain. LTG Duration MET Assessment Summary Assessment Pt very challenged by skipping activity. Ladder drills were ok, challenging for some single leg activities. LEFS improved well. Encouraged Alycia to continue with plyometrics and single leg strengthening. she has met all of her goals at this point , so is discharged to [facility]. Physical Therapy Plan Frequency and Duration Frequency of Treatment 1x/Week Duration of treatment (weeks) 6 Plan of Care Start Date 08/18/22 Plan of Care End Date 09/29/22 Therapeutic Interventions Therapeutic Interventions Balance Training,Gait Training ,Home Exercise Program,Manual Therapy,Neuromuscular Re- education,Self-Care/Home Management,Therapeutic Activities,Therapeutic Exercises Modalities Cold Pack/Ice Massage,Electric Stimulation,Hot Packs, Ultrasound Discharge Physical Therapy Discharge Reasons Goals Met
== END 2022-09-08 15:01 | disposition home or self-care (01) ==
LOC: PHYS 09:45
PROVIDERS: Family Provider Physician Assistant; PCP Physician Assistant; Referring Provider Podiatrist Foot & Ankle Surgery; Visit Provider Podiatrist Foot & Ankle Surgery
DX: S86.001A Unspecified injury of right Achilles tendon, initial encounter (principal)
CPT/HCPCS: 97110; 97112; 97140; 97161; 97535

== ENCOUNTER → 2023-05-18 15:07 | Outpatient (CLI) | payer OTHER, MEDICAID, SELFPAY ==
--- NOTE | 2023-05-18 15:07 | DI.US.S_ITS ---
PROCEDURE: US PELVIC COMPLETE INDICATIONS: HEAVY BLEEDING TECHNIQUE: Real-time scanning was performed of the pelvic organs, with image documentation. Additional endovaginal scanning was necessary due to incomplete visualization of the adnexal and endometrial structures by transabdominal scanning. COMPARISON: None. FINDINGS: Uterus: Uterus is anteverted and normal in size at 7.6 x 5.4 x 3.1 cm. The myometrium is homogeneous. The endometrium measures 7 mm combined thickness. Endometrial vascularity is mildly prominent. No fibroids. Ovaries: The right ovary measures 3 x 1.8 x 1.6 cm, with a calculated ovarian volume of 5 cc. The left ovary measures 3.1 x 2.4 x 1.4 cm, with a calculated ovarian volume of 5 cc. The ovaries have a normal sonographic appearance. Less than 12 follicles can be seen in each ovary. No adnexal masses are seen. Other: No pathologic free abdominal or pelvic fluid. IMPRESSION: 1. Endometrium measures 7 mm. 2. No significant ovarian cysts. We strive to produce accurate, complete, and clear reports of imaging services. To assist us in improving patient care, this report was composed using standard report templates and voice recognition software. Therefore, it may contain abnormal punctuation, insertions and/or omissions. Occasional wrong-word or sound-alike substitutions may occur. Though we review the report and make efforts to correct it, we do recommend that the report be read carefully in proper context to recognize any text inaccuracies. Dictated by: Paulino Arriaga M.D. on 05/19/2023 at 9:54 Approved by: Paulino Arriaga M.D. on 05/19/2023 at 9:57
== END ==
PROVIDERS: Family Provider Physician Assistant; PCP Student in an Organized Health Care Education/Training Program; Referring Provider Student in an Organized Health Care Education/Training Program; Visit Provider Student in an Organized Health Care Education/Training Program
DX: N92.0 Excessive and frequent menstruation with regular cycle (principal)
CPT/HCPCS: 76830; 76856

== ENCOUNTER 2023-07-05 07:37 | Day surgery (SDC) | payer OTHER, MEDICAID, SELFPAY ==
[2023-06-30 08:27] VITALS: BMI 31.6
[2023-07-05] VITALS (16 sets, daily range): BP systolic 98–117; BP diastolic 47–80; PULSE 59–89; RESP 12–18; TEMP 36.1–37.6; O2SAT 95–99; BMI 31.6
--- NOTE | 2023-07-05 | PATH_ITS ---
[facility] Accession Number: [id number] No. of containers..01 Tissue . 01 Material submitted: . uterus - UTERUS AND CERVIX . 01 Diagnosis: Uterus and Cervix; Hysterectomy (Without Adnexa): Cervix: Mild chronic cervicitis, and focal mild squamous atypia; negative for definite squamous dysplasia and malignancy. Endometrium: Secretory phase endometrium without significant cytologic atypia, hyperplasia, or malignancy. Negative for endometrial polyps (by gross description and microscopic examination of labor union business representative sections). Negative for adenomyosis (on labor union business representative sections). No leiomyomas seen (grossly or by microscopic evaluation of labor union business representative sections). [facility] 07/07/2023 1529 Local . 01 Electronically signed: . Yumiko Pelletier MD, Pathologist NPI- [id number] . 01 Gross description: . The specimen is received in formalin labeled with the patient's name, , and uterus and cervix, consists of an intact uterus (86 grams, 9.4 cm from superior to inferior, 4.4 cm from medial to lateral, and 4.0 cm from anterior to posterior), with attached cervix (3.1 x 2.4 cm), with no additional adnexa. The ectocervix is abdi and wrinkled with a slit-like os measuring 1.1 cm in diameter. The anterior paracervical margin is inked blue while the posterior paracervical margin is inked black. The serosa is abdi and smooth with no evidence of hemorrhage or adhesion identified. The endocervical canal has abdi herringbone mucosa and measures 3.3 cm in length. The endometrial cavity measures 2.8 cm from cornu to cornu, and 4.8 cm in length with abdi velvety endometrium that averages 0.3 cm. The myometrium is pink-abdi, trabecular, and measures up to 2.0 cm in maximum thickness with no nodules or lesions identified. Turret Lathe Tender sections are submitted as follows: . A1: Anterior cervix. A2: Posterior cervix. A3: Anterior full thickness section. A4: Posterior full thickness section. A5: Serosa. ([id number]) /MRV 07/06/2023 1337 Local . 01 Pathologist provided ICD-10: N93.9, N92.0, Z92.0, Z98.51 . 01 CPT . 787133 Specimen Comment: A courtesy copy of this report has been sent to [facility] Pathology Performed at: [address] [facility] Cytology [address] [facility] [place], [place], [place] [id number] MD Coleman Hendrickson MD Phone: [phone]
[2023-07-05 08:25] LABS: Add Manual Diff / Slide Review NO; Basophils Absolute Auto 0 /uL (0-100); Basophils Percent Auto 0.5 % (0-2); Eosinophils Absolute Auto 100 /uL (0-450); Eosinophils Percent Auto 1.4 % (2-4); Hematocrit 36.4 % (36-46); Hemoglobin 12.2 g/dL (12.0-16.0); Lymphocytes Absolute Auto 2100 /uL (1100-4500); Lymphocytes Percent Auto 35.3 % (25-40); Mean Corpuscular HGB Conc 33.6 % (30-36); Mean Corpuscular Hemoglobin 28.5 PG (26-34); Mean Corpuscular Volume 84.7 fL (80-100); Monocytes Absolute Auto 500 /uL (0-900); Monocytes Percent Auto 8.8 % (3-14); Neutrophils Absolute Auto 3200 /uL (1500-7000); Platelet Count 197 X10^3/uL (150-400); Red Blood Cell Count 4.29 X10^6/uL (4.0-5.2); Red Cell Distribution Width 16.4 % (11.6-14.8); White Blood Cell Count 5.9 X10^3/uL (4.5-11.0)
[2023-07-05] MEDS: LACTATED RINGERS 1,000 ML 42 ML IV (08:26)
[2023-07-05 08:41] LABS: Alanine Aminotransferase 15 IU/L (<35); Albumin 4.1 g/dL (3.5-5.0); Albumin Globulin Ratio 1.3 (1.0-2.8); Alkaline Phosphatase 68 U/L (38-126); Aspartate Aminotransferase 20 IU/L (14-36); Bilirubin Total 0.7 mg/dL (0.2-1.3); Blood Urea Nitrogen 11 mg/dL (7-17); Calcium 9.4 mg/dL (8.4-10.2); Carbon Dioxide 25 mmol/L (22-32); Chloride 107 mmol/L (98-107); Estimated Glomerular Filt Rate > 60 mL/min (>60); Globulin 3.2 g/dL (1.7-4.1); Glucose 89 mg/dL (70-100); HEMOLYSIS < 15 (0-50); Potassium 3.9 mmol/L (3.4-5.1); Sodium 137 mmol/L (137-145); Total Protein 7.3 g/dL (6.3-8.2)
--- NOTE | 2023-07-05 09:34 | PM.PREOP ---
Pre-operative Note Interval Note History & Physical reviewed/Exam performed by Physician: Yes Changes to H&P: No H&P completed within 30 days and has changed as indicated here:: see note from 06/11/23. Pt desires to proceed with planned procedure.
[2023-07-05] MEDS: CEFAZOLIN 2 GM/100 ML PREMIX 100 ML IV (09:43)
--- NOTE | 2023-07-05 10:01 | SUR.OPER ---
Lithotomy on padded OR bed, head on pillow, arms secured on padded arm boards at <90 degrees abduction. Legs secured in padded yellow fins stirrups.
[2023-07-05] MEDS: LIDOCAINE 1% W/EPI 20 ML INJ (10:07)
--- NOTE | 2023-07-05 11:08 | P.OP_ITS ---
Operative Date/Time/Diagnoses Date of procedure: 07/05/23 Time of procedure: 09:45 Pre-op diagnosis: Abnormal uterine bleeding Post-op diagnosis: same Procedure & Clinicians Procedure: Transvaginal hysterectomy Cystoscopy Same procedure as scheduled: Yes Indications: 32yo with hx of tubal ligation admitted for planned TVH, possible bilateral salpingectomy, cystoscopy. She reports menarche age 14yo, with hx of heavy crampy periods. Since her last child 7 yrs ago, she has not used contraception and reports monthly heavy periods lasting 5-7 days. She uses 2 pads at once on heavy days, changing these every 2hrs. She reports fatigue as well during her period. Normal uterine ultrasound, benign endometrial biopsy. Pt desired defi nitive surgical management, thus was counseled and consented for hysterectomy. Surgeon: Tata Bedoya Slot Technician: Tomasa Spence Click Yes if Unassisted: No Anesthesia Type: General Operative Notes Findings: 6wk sized uterus. Unable to adequately visualize the fimbriated fallopian tubes or ovaries. Cystoscopy: normal bladder mucosa, bilateral efflux of urine from ureteral orifices, no evidence of retained suture or defects in the bladder Specimen(s): other (uterus and cervix) Applied: catheter Estimated Blood Loss (mL): 100 Blood products transfused: none Procedure in detail: The risks, benefits, indications and alternatives of the procedure were reviewed with the patient and informed consent was obtained. The patient was taken to the operating room where general anesthesia was obtained without difficulty. The pt was then placed in the high lithotomy position using Jonnie stirrups. Sequential compression devices were placed bilaterally for VTE prophylaxis. Pt was then prepped and draped in the sterile fashion and a Gage catheter was placed. A weighted speculum was placed in the patient?s vagina and the cervix was visualized. A thyroid-lehy clamp was used to grasp the anterior and posterior lips of the cervix. 10cc of 1% lidocaine with epinephrine was then injected circumferentially in the cervix for hydrodissection. The cervix was then incised circumferentially superficially using the Bovie cautery. The posterior fornix was grasped with pick-ups and the abdominal cavity was entered posteriorly with Wood scissors. The posterior peritoneum was then tagged to the vaginal mucosa with 0-Vicryl. The weighted speculum was then placed in the posterior cul-de-sac for adequate visualization while displacing the rectum. The uterosacral ligaments were then clamped with Oscar clamps on both sides, transected, and suture ligated with 0-Vicryl bilaterally. The anterior vaginal mucosa was then dissected off the cervix sharply. An attempt at entering the anterior cul-de-sac with Metzenbaum scissors was performed, but unsuccessful as there was still a significant amount of vaginal mucosa present anteriorly. Decision was made to proceed with mobilization of the uterus and cervix instead. The cardinal ligaments were clamped with Ligasure impact on both sides, cauterized and cut. Several more tissue pedicles were by using a Heany clamp and suture ligated these pedicles. After additional mobility was achieved, attention was then redirected to the anterior cul-de-sac, which was entered during serial cauterization and cutting with the Ligasure. Pedicles were cauterized and cut serially bilaterally to continue removal of the uterus. The cornua were then visualized bilaterally, and were clamped with Heany clamps, then cut and suture ligated with 0-vicryl. The uterus and cervix subsequently delivered without difficulty. The right tubal fimbria was unable to be adequately visualized, so attempt was made to visualize the left. The left was also unable to be adequately mobilized and visualized, thus bilateral tubal remnants were left in situ. Reinspection of all pedicles revealed adequate hemostasis. The vaginal cuff was then closed using [id number] sutures of 0-vicryl, ensuring that the peritoneum was incorporated. The pedicles of the uterosacral ligaments were incorporated into the vaginal cuff closure. Inspection of the cuff assured hemostasis. The gage catheter was then removed and cystoscopy was performed, which did not reveal evidence of defects or suture within the bladder. Ureteral orifices were appreciated with efflux of urine bilaterally. The gage catheter was subsequently replaced. All instruments were removed from the patient?s vagina. At the completion of the case the sponge and needle counts were correct x 2. The patient was taken to the PACU in stable condition. Complications: none Post-operative Condition: stable Disposition: PACU Plan for aftercare: Plan for overnight observation, then discharge home in the morning.
[2023-07-05] MEDS: MEPERIDINE 50 MG/ML INJ 25 MG IV (11:22)
[2023-07-05] MEDS: HYDROMORPHONE 1 MG INJ IV (11:32)
[2023-07-05] MEDS: ACETAMINOPHEN 325 MG TABLET 650 MG PO ×3 (13:06→23:28)
[2023-07-05] MEDS: KETOROLAC 30 MG/ML VIAL IV ×2 (17:13→23:27)
[2023-07-05] MEDS: ENOXAPARIN 40 MG/0.4 ML SYRINGE SUBCUT (18:31)
[2023-07-06 01:42] VITALS: BP 111/49; PULSE 57; RESP 16; TEMP 36.5; O2SAT 100
--- NOTE | 2023-07-06 03:52 | PC.NURSE ---
machinist 2nd shift: Patient is AxOx4, VSS, O2 saturation 100% on RA. 08/14 pain well controlled w/ scheduled post-op medication. Denies nausea, lightheadedness, SOB. Ambulates independently in room, tolerating well. Mendoza d/c'd last night, patient voiding w/o difficulty, had BM overnight. Minimal serosanguinous drainage. Patient oriented to room & call-light, will continue to monitor.
[2023-07-06] MEDS: KETOROLAC 30 MG/ML VIAL IV (05:30)
[2023-07-06] MEDS: ACETAMINOPHEN 325 MG TABLET 650 MG PO (05:30)
[2023-07-06] MEDS: ENOXAPARIN 40 MG/0.4 ML SYRINGE SUBCUT (08:08)
[2023-07-06 08:12] VITALS: BP 105/56; PULSE 71; RESP 16; TEMP 36.4; O2SAT 99
--- NOTE | 2023-07-06 09:49 | PM.DS.1 ---
History of Present Illness History of Present Illness Date Patient Seen: 07/06/23 Time Patient Seen: 09:49 Chief complaint: Total Vaginal Hysterectomy *OPB* Discharge Providers Provider Discharge Date: 07/06/23 Primary care physician: Viridiana Hardin MD Discharge provider: Tata Bedoya DO Summary Hospital Course Discharge Diagnosis: Abnormal uterine bleeding Hospital Course: 32-year-old female admitted for planned vaginal hysterectomy. She underwent an uncomplicated total vaginal hysterectomy with cystoscopy. By postoperative day 1, she was ambulating, tolerating regular diet, voiding spontaneously, with no vaginal bleeding. Her pain was well controlled. She was discharged to home on postop day 1. Status at Discharge Cognitive/behavioral status at discharge: oriented Functional status at discharge: independent ambulation Overall status at discharge: patient is progressing back to baseline Time Spent with Patient Time spent: Less than 30 minutes Exam Vital Signs (past 8 hours): - 07/06/23 08:12 Temperature 97.5 F L Pulse Rate 71 Respiratory Rate 16 Blood Pressure 105/56 L Pulse Oximetry 99 Oxygen Flow Rate 0 Oxygen Delivery Method Room Air Oxygen Flow Rate 0 Const General: cooperative, healthy appearing and comfortable Skin General: no rashes or lesions noted Psych Mood: congruent mood Affect: normal affect Objective Labs 07/05/23 08:10 07/05/23 08:10 [facility] Medical History (Updated 06/11/23 @ 16:49 by Tata Bedoya DO) Astigmatism PTSD (post-traumatic stress disorder) (~1998) Foot pain (~2020) Factor V Leiden (~2012) Irregular menstrual cycle History of anxiety (~2008) History of depression Asthma (~2003) Factor 5 Leiden mutation, heterozygous Menorrhagia Dysmenorrhea Surgical History (Updated 06/30/23 @ 08:34 by Magalie Carreon RN) Anesthesia History of sinus surgery (~2005) History of Achilles tendon repair History of tubal ligation (~2015) History of cholecystectomy (~2005) History of sleeve gastrectomy (2018) Family History (Updated 05/20/23 @ 18:17 by Desi Hartmann) Grandfather Pneumonia Grandmother Cancer Grandmother Diabetes mellitus Social History household members: significant other Smoking Status: Current every day smoker alcohol intake: current substance use type: does not use Discharge Assessment & Plan Assessment and Plan Assessment: 32-year-old female status post total vaginal hysterectomy. Meeting all discharge criteria on postoperative day 1. Plan of Treatment: Discharge to home Discharge Plan Discharge Plan Patient Disposition: Home Provider Discharge Comment: Take ibuprofen 600 mg every 6 hours or acetaminophen 650 mg every 6 hours as needed for pain. Continue the Lovenox injections for a total of 7 days post surgery. Avoid placing anything in the vagina for 6 weeks. Avoid lifting greater than 20 lb for at least 2 weeks. You may gradually resume normal activities as tolerated. Discharge orders & Medications Discharge Orders: Discharge (Order); Ordered 07/06/23 Ordered By: Tata Bedoya Prescriptions: New enoxaparin [Lovenox] 40 mg/0.4 mL Syringe 40 mg SUBCUT DAILY 5 Days Qty: 2 0RF Rx Instructions: use daily for a total of 7 days post-surgery Follow up/Referrals: Viridiana Hardin MD [Primary Care Provider] - Diet/Activity/Treatments Diet: Diet as Tolerated Skin/Wound/Dressing Care Report to your healthcare provider any signs of infection, such as:: chills, fever, increased pain, unusual drainage and unusual redness Visit Report/Discharge Packet Instructions: DI for Hysterectomy Stand Alone Forms: Patient Portal/API Discharge Data Primary Care Provider: Viridiana Hardin Attending Provider: Tata Bedoya
== END 2023-07-06 10:20 | disposition home or self-care (01) ==
LOC: OR 07:38 → AC 07:42
PROVIDERS: Family Provider Physician Assistant; PCP Student in an Organized Health Care Education/Training Program; Referring Provider Student in an Organized Health Care Education/Training Program; Visit Provider Student in an Organized Health Care Education/Training Program
PROC: (CPT 58260; principal; 2023-07-05 09:45)
PROC: 0TJB8ZZ Inspection of Bladder, Via Natural or Artificial Opening Endoscopic (ICD-10-PCS; CPT 52000; 2023-07-05 09:45)
DX: N93.9 Abnormal uterine and vaginal bleeding, unspecified (principal); N92.0 Excessive and frequent menstruation with regular cycle; N72 Inflammatory disease of cervix uteri; D68.51 Activated protein C resistance; F17.200 Nicotine dependence, unspecified, uncomplicated; Z92.0 Personal history of contraception; Z98.51 Tubal ligation status; Z98.84 Bariatric surgery status
CPT/HCPCS: 58260; 52000; 36415; 80053; 85025; 86850; 86900; 86901; J0330; J0690; J1100; J1170; J1650; J1885; J2175; J2250; J2405; J2704; J3010

== ENCOUNTER → 2023-10-07 07:48 | Outpatient (CLI) | payer OTHER, MEDICAID, SELFPAY ==
[2023-07-05 07:54] VITALS: BMI 31.6
== END ==
PROVIDERS: Family Provider Physician Assistant; PCP Student in an Organized Health Care Education/Training Program; Visit Provider Nurse Practitioner Family
DX: R30.0 Dysuria (principal)
CPT/HCPCS: 81002; 87086

== ENCOUNTER → 2024-03-22 11:28 | Outpatient (CLI) | payer OTHER, MEDICAID, SELFPAY ==
[2023-07-05 07:54] VITALS: BMI 31.6
--- NOTE | 2024-03-22 11:29 | DI.MRI.S_ITS ---
PROCEDURE: MR LUMBAR SPINE WO CON INDICATIONS: PARS defect TECHNIQUE: Noncontrast sagittal T1 spin echo and T2 fast echo, sagittal STIR, and T2 fast spin echo through the lumbar spine. In cases with scoliosis, additional coronal T2 fast spin echo may be performed. COMPARISON: [facility], CR, XR LUMBAR SPINE 2 OR 3 VIEWS, 01/17/2024, 8:34. FINDINGS: Image quality: Excellent. Alignment and Curvature: Mild levoconvex scoliotic curvature is noted. Bone Marrow: Marrow is of normal overall signal. No acute vertebral body compression fractures. Spinal Cord: Conus medullaris terminates at the L1 level. Visualized cord demonstrates normal signal and size. Paraspinous Soft Tissues: No paravertebral masses. T12-L1: Normal appearance. L1-L2: Normal appearance. L2-L3: Normal appearance. L3-L4: No significant abnormality is seen L4-L5: The disc height is well-preserved. Loss of disc signal is seen at this level. Mild to moderate disc bulge is seen, with a central disc protrusion. There is a focal annular fissure seen posteriorly. Mild facet joint hypertrophy is seen. Moderate bilateral neural foraminal narrowing is seen. L5-S1: Scrutiny is given to L5 pars defects. None can be seen on these images. Moderate loss of disc height is seen. Loss of disc signal is seen. Moderate disc bulge is seen, with a central disc extrusion, with mild inferior migration of the disc material. Mild regional mass effect can be seen, including upon the transiting right S1 nerve root. Mild facet joint hypertrophy is seen. At least moderate bilateral neural foraminal narrowing can be seen. There is a degree of compression seen upon the exiting nerve roots. Mild central canal narrowing is seen. IMPRESSION: Pars defects are not seen on this study. Premature lower lumbar spine degenerative changes are seen, including a disc extrusion at L5-S1. Also at L5-S1, there is at least moderate bilateral neural foraminal narrowing, with a degree of compression upon the exiting bilateral L5 nerve roots. Dictated by: Panda Martinez M.D. on 03/22/2024 at 13:44 Approved by: Panda Martinez M.D. on 03/22/2024 at 13:47
== END ==
PROVIDERS: Family Provider Student in an Organized Health Care Education/Training Program; PCP Student in an Organized Health Care Education/Training Program; Referring Provider Student in an Organized Health Care Education/Training Program; Visit Provider Student in an Organized Health Care Education/Training Program
DX: M47.816 Spondylosis without myelopathy or radiculopathy, lumbar region (principal); M47.817 Spondylosis without myelopathy or radiculopathy, lumbosacral region; M51.27 Other intervertebral disc displacement, lumbosacral region; M48.07 Spinal stenosis, lumbosacral region; M48.061 Spinal stenosis, lumbar region without neurogenic claudication; M43.00 Spondylolysis, site unspecified
CPT/HCPCS: 72148

== ENCOUNTER 2024-04-26 08:15 | Outpatient (RCR) | payer OTHER, MEDICAID, SELFPAY ==
[2023-07-05 07:54] VITALS: BMI 31.6
--- NOTE | 2024-03-01 13:11 | PT.OIE ---
Current Diagnoses Stiffness of right hip, not elsewhere classified (03/01/24) Dorsalgia, unspecified (03/01/24) Weakness (03/01/24) Past Medical History (Last Updated 08/19/23 @ 08:25 by Tata Bedoya DO) Asthma (~2003) Astigmatism Factor 5 Leiden mutation, heterozygous Foot pain (~2020) History of anxiety (~2008) History of depression PTSD (post-traumatic stress disorder) (~1998) Past Surgical History (Last Updated 08/19/23 @ 08:25 by Tata Bedoya DO) History of Achilles tendon repair History of cholecystectomy (~2005) History of sinus surgery (~2005) History of sleeve gastrectomy (2018) History of tubal ligation (~2015) Hx of total hysterectomy (~06/2023) Visit Care Team Role Provider Type Viridiana Hardin MD Attending Provider Physician Family Provider Primary Care Provider Referring Provider Specialty: Family Practice Obstetrics Address: [address] [place] [address] Email: [email or web address] Physical Therapy Initial Evaluation PT-OP-A Visit Information Start: 03/01/24 09:02 Freq: Status: Active Protocol: Document 03/01/24 09:45 NM (Rec: 03/01/24 11:07 NM [id number]) Out-Patient Physical Therapy Visit Information Visit Information Visit Type Initial Evaluation Visit Note Max 24 visits Visit Start Time 09:46 Visit Stop Time 10:31 Visit Number 06/30 Evaluation Information Evaluation Date 03/01/24 PT-OP-B Current Condition Start: 03/01/24 09:02 Freq: Status: Active Protocol: Document 03/01/24 09:45 NM (Rec: 03/01/24 11:07 NM [id number]) Current Condition History of Current Condition Onset Date ~January 2024 Current Complaints pain History of Current Condition Pt reports that she has back pain, reports that has worsened over 6 months to 1 year. Reports that tylenol/ ibuprofen helps. She states that in January, she went to bed and was unable to get up out of bed in the morning. Reports no other known LOUIS. She has had imaging and was sent home with muscle relaxers . She does take narcotics to sleep. She had been on medical leave since January. Pt works on [employer], started in September . Pt lives with her daughters. Pt has intermittent random spasms, that are extremely painful. Pt has not had an MRI or spine doctor; she has been referred for spinal injections. Pt reports that she has had back pain only when (youngest 2015 born). Pt had a hysterectomy in 2022/2023. She had an achilles surgery 2x last year, back pain is on the same side . 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 She sleeps on her R side, with her leg over her boyfriend or using a pillow. No numbness/tingling in RLE. She states that she goes through hot flashes due to pain. Prior Treatments and Tests medical leave up on April Radiographs of lumbar spine : mild multilevel facet arthropathy, question B L5 pars defect, no acute bony abnormality PT-OP-C Subjective Start: 03/01/24 09:02 Freq: Status: Active Protocol: Document 03/01/24 09:45 NM (Rec: 03/01/24 11:07 NM [id number]) OP-PT Subjective Patient Comments Patient Comments consents to participate in evaluation Patient Questionnaires Oswestry Low Back Index Oswestry Score 64/100 OP-PT Pain Assessment Location lumbar spine Pain Location Details R sided back pain>L, midline Scale Used Numeric (0 - 10) Description Pressure,Sharp,Spasm Frequency Constant Pain Aggravating Factors Position,Changing Position, Standing,Sitting,Walking, Bending,Lifting Other Pain Aggravating Factors straining, sneezing, sleeping Pain Alleviating Factors Cold,Medication Other Pain Alleviating Factors slumping Home Pain Medication Use Pain Medications Used tylenol, ibuprofen, muscle relaxers PT-OP-E Functional Tests Start: 03/01/24 09:02 Freq: Status: Active Protocol: Document 03/01/24 09:45 NM (Rec: 03/01/24 11:07 NM [id number]) Functional Tests Other Forward Trunk Flexion Test Name of Test measured finger to floor Score 18 Comment pain reproduced PT-OP-F Manual Assessment Start: 03/01/24 09:02 Freq: Status: Active Protocol: Document 03/01/24 09:45 NM (Rec: 03/01/24 11:07 NM [id number]) Manual Assessments Soft Tissue Assessment Soft Tissue Mobility Assessment Atrophy of R lumbar paraspinals Joint Mobility Assessment Joint Mobility Assessment Decreased R hip passive mobility, decreased lumbopelvic mobility PT-OP-G Mobility & Gait Start: 03/01/24 09:02 Freq: Status: Active Protocol: Document 03/01/24 09:45 NM (Rec: 03/01/24 11:07 NM [id number]) OP Mobility Evaluation Transfers Sit to Stand Must use BUE to assist with transfer, increases back pain OP Gait Assessment Gait Gait Assistance Required: Independent Distance (Feet) 150 Gait Deviations General Gait Pattern Antalgic Factors Limiting Gait Function Factors Limiting Gait Function Decreased Activity Tolerance, Limited Range of Motion,Pain Comments Gait Comments Decreased trunk motion, decreased R stance time PT-OP-H Neuro Start: 03/01/24 09:02 Freq: Status: Active Protocol: Document 03/01/24 09:45 NM (Rec: 03/01/24 11:07 NM [id number]) Sensation Evaluation Comments Summary Comments Intact equally to light touch sensation along BLE except for R lateral thigh, which is less sensitive to light touch Deep Tendon Reflex & Clonus Assessment Deep Tendon Reflex Bilateral Achilles Deep Tendon Reflex 1+ Diminished Bilateral Patellar Deep Tendon Reflex 2+ Normal PT-OP-J Posture/Palpation/Skin Start: 03/01/24 09:02 Freq: Status: Active Protocol: Document 03/01/24 09:45 NM (Rec: 03/01/24 11:07 NM [id number]) Posture Evaluation Position Standing Head/C-Spine Posture Forward Head T-Spine Posture Increased Kyphosis L-Spine Posture Decreased Lordosis Shoulder Posture (L) Rounded,(R) Rounded Arm Posture (L) Internally Rotated,(R) Internally Rotated Hip Posture (L) Externally Rotated,(R) Externally Rotated Knee Posture (L) Genu Valgus,(R) Genu Valgus Palpation Assessment Location lumbar spine Palpation Findings Soft Tissue Tightness,Muscle Guarding,Tenderness Palpation Details Tenderness along midline and R sided lumbar vertebrae, R SIJ /PSIS, R sided paraspinals, glutes, QL, hip abductors Atrophy noted along R sided lumbar paraspinals compared to L side Mild tenderness along L paraspinals PT-OP-K Range of Motion Start: 03/01/24 09:02 Freq: Status: Active Protocol: Document 03/01/24 09:45 NM (Rec: 03/01/24 11:07 NM [id number]) Lumbar Spine Range of Motion Lumbar Spine Active Percentage Flexion 50 Extension 25 Rotation Left 6 Rotation Right 4 Lateral Flexion Left 50 Lateral Flexion Right 25 Comments pain with flexion, extension ( worse), R LF, rotation B (R>L) Hip Goniometric Range of Motion Hip Right Internal Rotation 28 External Rotation 25 Comments pain reproduced in low back Left Internal Rotation 35 External Rotation 30 PT-OP-L Special Tests Start: 03/01/24 09:02 Freq: Status: Active Protocol: Document 03/01/24 09:45 NM (Rec: 03/01/24 11:07 NM [id number]) Special Tests Lumbar Spine Special Tests Sims/Quadrant Test Results + Comments B Distraction Test Results - Straight Leg Raise Test Results + Comments R Slump Test Results + Comments R PT-OP-M Strength Start: 03/01/24 09:02 Freq: Status: Active Protocol: Document 03/01/24 09:45 NM (Rec: 03/01/24 11:07 NM [id number]) Trunk Strength Trunk Manual Muscle Testing Flexion 4- Good- Rotation Left 4- Good- Rotation Right 3+ Fair+ Lateral Flexion Left 4- Good- Lateral Flexion Right 3+ Fair+ Comments pain with rot, R LF, flex Hip Strength Hip Manual Muscle Testing Right Flexion (L2) 4- Good- Extension (S1) 3+ Fair+ Abduction 3+ Fair+ Adduction 4- Good- External Rotation 4- Good- Internal Rotation 4- Good- Comments pain reproduced with resisted hip testing, jason abduction Left Flexion (L2) 4+ Good+ Extension (S1) 4+ Good+ Abduction 4 Good Adduction 4+ Good+ External Rotation 4 Good Internal Rotation 4 Good Knee Strength Knee Manual Muscle Testing Right Flexion (S2) 4- Good- Extension (L3) 4 Good Left Flexion (S2) 4+ Good+ Extension (L3) 4+ Good+ PT-OP-T Assessment and Plan Start: 03/01/24 09:02 Freq: Status: Active Protocol: Document 03/01/24 09:45 NM (Rec: 03/01/24 11:07 NM [id number]) Physical Therapy Assessment Rehab Potential Rehabilitation Potential Fair Evaluation Complexity Number of Personal Factors/Comorbidities 3 or More Number of Body Systems Impaired 3 Clinical Presentation at Evaluation Stable Impairments Impairments Activity Tolerance,Balance, Functional Activities, Functional Mobility,Gait, Integument,Pain,Posture,ROM, Sensation,Soft Tissue Mobility ,Strength,Transfers Other Concerns Barriers to Rehabilitation Pt reports depression and also reports PTSD/catastrophizes PT/injection/surgery based on experiences of her mom and aunt. Pt also is a single mom, currently on paid medical leave from work. She has a limited number of insurance visits. Pt also continues to report limitations in mobility due to previous R Achilles surgeries. PMH of weight loss surgery, R achilles injury, depression, high blood pressure, several surgeries ( gall bladder, hysterectomy and tubal ligation). Goals Four Impairment not performing HEP Short Term Goal (STG) Pt will be issued HEP and will report compliance at least 3x /wk in order to maximize progression with PT STG Duration 4 weeks Skilled Nursing Goal (LTG) Pt will report compliance with HEP at least 3x/wk in order to transition to maintenance program following discharge from PT LTG Duration 10 weeks Three Impairment sitting and standing tolerance impaired <30 min Short Term Goal (STG) Pt will report that she is able to sit and stand for at least 30 minutes without increase in back pain in order to demonstrate improved symptom management STG Duration 6 weeks Skilled Nursing Goal (LTG) Pt will report that she is able to sit and stand for at least 60 minutes without increase in back pain in order to demonstrate improved symptom management and activity tolerance LTG Duration 10 weeks Two Impairment sleeping impaired: unable to sleep w/o medication Short Term Goal (STG) Pt will be educated on sleeping ergonomics to improve sleeping quality STG Duration 3 weeks Skilled Nursing Goal (LTG) Pt will report that her sleep is limited <50% of the time due to her back pain LTG Duration 10 weeks One Impairment oswestry 64/100 Service Center Representative Goal (LTG) Pt will decrease Oswestry impairment score to less than 50% impairment in order to demonstrate improved symptom management and activity tolerance for ADLs. LTG Duration 10 weeks Assessment Summary Assessment Pt is a 33 y.o. female presenting with an acute exacerbation of lumbar spine pain. Pt has has chronic back pain for at leat 1 year; however, most recent exacerbation in January 2024 leading to muscle spasms, increased pain, decreased mobility. Pt has impairments in trunk and hip ROM, strength , pain management, transfers, activity tolerance, ability to perform ADLs, and sleeping. She has more limitation in R sided trunk and hip ROM/ strength. Pt has weakness more notable weakness of her hip abductors, extensors, and hamstrings. Pt's symptoms are worsened with slump testing, straight leg raise, Sims/ quadrant; not relieved by distraction. Symptoms are consistent with imaging and dx , but pt also likely has disc- related pathology as well based on testing. Pt has increased tenderness along her R lower lumbar midline, just lateral to midline, and her paraspinals. PT educated pt on exam findings and plan of care. Pt has limited number of visits due to insurance, and she is unable to receive an injection to assist with pain management until PT is trialed . Pt would benefit from skilled PT to improve mobility and strength in order to improve symptom management and activity tolerance. Physical Therapy Plan Frequency and Duration Frequency of Treatment 1-2x/wk Duration of treatment (weeks) 10 Plan of Care Start Date 03/01/24 Plan of Care End Date 05/12/24 Therapeutic Interventions Therapeutic Interventions Balance Training,Gait Training ,Home Exercise Program,Joint Mobilizations,Manual Therapy, Neuromuscular Re-education, Orthotic/Prosthetic Management ,Patient/Caregiver Education, Self-Care/Home Management, Sensory Integration,Soft Tissue Mobilization,Taping, Therapeutic Activities, Therapeutic Exercises Modalities Cold Pack/Ice Massage,Electric Stimulation,Hot Packs, Ultrasound Other Referrals/Consults Referrals/Consults Recommended MRI and referral to control specialist and/or mirror painter, in addition to referral to counselor Next Visit Focus/Plan Next Note Type Treatment Note Next Visit Plan sleeping, sitting ergonomics, transfers manual therapy: sidelying with pillow to lumbar spine and paraspinals trial seated core vs sidelying
--- NOTE | 2024-03-07 10:37 | PT.OTN ---
Current Diagnoses Stiffness of right hip, not elsewhere classified (03/07/24) Dorsalgia, unspecified (03/07/24) Weakness (03/07/24) Physical Therapy Treatment Note PT-OP-A Visit Information Start: 03/01/24 09:02 Freq: Status: Active Protocol: Document 03/07/24 09:46 NM (Rec: 03/07/24 10:37 NM [id number]) Out-Patient Physical Therapy Visit Information Visit Information Visit Type Treatment Note Visit Note Max 24 visits Visit Start Time 09:47 Visit Stop Time 10:27 Visit Number 07/31 Evaluation Information Evaluation Date 03/01/24 PT-OP-B Current Condition Start: 03/01/24 09:02 Freq: Status: Active Protocol: Document 03/01/24 09:45 NM (Rec: 03/01/24 11:07 NM [id number]) Current Condition History of Current Condition Onset Date ~January 2024 Current Complaints pain History of Current Condition Pt reports that she has back pain, reports that has worsened over 6 months to 1 year. Reports that tylenol/ ibuprofen helps. She states that in January, she went to bed and was unable to get up out of bed in the morning. Reports no other known LOUIS. She has had imaging and was sent home with muscle relaxers . She does take narcotics to sleep. She had been on medical leave since January. Pt works on [employer], started in September . Pt lives with her daughters. Pt has intermittent random spasms, that are extremely painful. Pt has not had an MRI or spine doctor; she has been referred for spinal injections. Pt reports that she has had back pain only when (youngest 2015 born). Pt had a hysterectomy in 2022/2023. She had an achilles surgery 2x last year, back pain is on the same side . 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 She sleeps on her R side, with her leg over her boyfriend or using a pillow. No numbness/tingling in RLE. She states that she goes through hot flashes due to pain. Prior Treatments and Tests medical leave up on April Radiographs of lumbar spine : mild multilevel facet arthropathy, question B L5 pars defect, no acute bony abnormality PT-OP-C Subjective Start: 03/01/24 09:02 Freq: Status: Active Protocol: Document 03/07/24 09:46 NM (Rec: 03/07/24 10:37 NM [id number]) OP-PT Subjective Patient Comments Patient Comments Pt reports continued 6-12/14 back pain. Reports has been laxy due to pain, but has tried a little stretching and icy hot, but icy hot does not help PT-OP-E Functional Tests Start: 03/01/24 09:02 Freq: Status: Active Protocol: Document 03/01/24 09:45 NM (Rec: 03/01/24 11:07 NM [id number]) Functional Tests Other Forward Trunk Flexion Test Name of Test measured finger to floor Score 18 Comment pain reproduced PT-OP-F Manual Assessment Start: 03/01/24 09:02 Freq: Status: Active Protocol: Document 03/01/24 09:45 NM (Rec: 03/01/24 11:07 NM [id number]) Manual Assessments Soft Tissue Assessment Soft Tissue Mobility Assessment Atrophy of R lumbar paraspinals Joint Mobility Assessment Joint Mobility Assessment Decreased R hip passive mobility, decreased lumbopelvic mobility PT-OP-G Mobility & Gait Start: 03/01/24 09:02 Freq: Status: Active Protocol: Document 03/01/24 09:45 NM (Rec: 03/01/24 11:07 NM [id number]) OP Mobility Evaluation Transfers Sit to Stand Must use BUE to assist with transfer, increases back pain OP Gait Assessment Gait Gait Assistance Required: Independent Distance (Feet) 150 Gait Deviations General Gait Pattern Antalgic Factors Limiting Gait Function Factors Limiting Gait Function Decreased Activity Tolerance, Limited Range of Motion,Pain Comments Gait Comments Decreased trunk motion, decreased R stance time PT-OP-H Neuro Start: 03/01/24 09:02 Freq: Status: Active Protocol: Document 03/01/24 09:45 NM (Rec: 03/01/24 11:07 NM [id number]) Sensation Evaluation Comments Summary Comments Intact equally to light touch sensation along BLE except for R lateral thigh, which is less sensitive to light touch Deep Tendon Reflex & Clonus Assessment Deep Tendon Reflex Bilateral Achilles Deep Tendon Reflex 1+ Diminished Bilateral Patellar Deep Tendon Reflex 2+ Normal PT-OP-J Posture/Palpation/Skin Start: 03/01/24 09:02 Freq: Status: Active Protocol: Document 03/01/24 09:45 NM (Rec: 03/01/24 11:07 NM [id number]) Posture Evaluation Position Standing Head/C-Spine Posture Forward Head T-Spine Posture Increased Kyphosis L-Spine Posture Decreased Lordosis Shoulder Posture (L) Rounded,(R) Rounded Arm Posture (L) Internally Rotated,(R) Internally Rotated Hip Posture (L) Externally Rotated,(R) Externally Rotated Knee Posture (L) Genu Valgus,(R) Genu Valgus Palpation Assessment Location lumbar spine Palpation Findings Soft Tissue Tightness,Muscle Guarding,Tenderness Palpation Details Tenderness along midline and R sided lumbar vertebrae, R SIJ /PSIS, R sided paraspinals, glutes, QL, hip abductors Atrophy noted along R sided lumbar paraspinals compared to L side Mild tenderness along L paraspinals PT-OP-K Range of Motion Start: 03/01/24 09:02 Freq: Status: Active Protocol: Document 03/01/24 09:45 NM (Rec: 03/01/24 11:07 NM [id number]) Lumbar Spine Range of Motion Lumbar Spine Active Percentage Flexion 50 Extension 25 Rotation Left 6 Rotation Right 4 Lateral Flexion Left 50 Lateral Flexion Right 25 Comments pain with flexion, extension ( worse), R LF, rotation B (R>L) Hip Goniometric Range of Motion Hip Right Internal Rotation 28 External Rotation 25 Comments pain reproduced in low back Left Internal Rotation 35 External Rotation 30 PT-OP-L Special Tests Start: 03/01/24 09:02 Freq: Status: Active Protocol: Document 03/01/24 09:45 NM (Rec: 03/01/24 11:07 NM [id number]) Special Tests Lumbar Spine Special Tests Sims/Quadrant Test Results + Comments B Distraction Test Results - Straight Leg Raise Test Results + Comments R Slump Test Results + Comments R PT-OP-M Strength Start: 03/01/24 09:02 Freq: Status: Active Protocol: Document 03/01/24 09:45 NM (Rec: 03/01/24 11:07 NM [id number]) Trunk Strength Trunk Manual Muscle Testing Flexion 4- Good- Rotation Left 4- Good- Rotation Right 3+ Fair+ Lateral Flexion Left 4- Good- Lateral Flexion Right 3+ Fair+ Comments pain with rot, R LF, flex Hip Strength Hip Manual Muscle Testing Right Flexion (L2) 4- Good- Extension (S1) 3+ Fair+ Abduction 3+ Fair+ Adduction 4- Good- External Rotation 4- Good- Internal Rotation 4- Good- Comments pain reproduced with resisted hip testing, jason abduction Left Flexion (L2) 4+ Good+ Extension (S1) 4+ Good+ Abduction 4 Good Adduction 4+ Good+ External Rotation 4 Good Internal Rotation 4 Good Knee Strength Knee Manual Muscle Testing Right Flexion (S2) 4- Good- Extension (L3) 4 Good Left Flexion (S2) 4+ Good+ Extension (L3) 4+ Good+ PT-OP-Q Treatments Start: 03/01/24 09:02 Freq: Status: Active Protocol: Document 03/07/24 09:46 NM (Rec: 03/07/24 10:37 NM [id number]) Therapeutic Exercises Sitting Exercises TrA Sitting Exercise Name 1. TrA w/ breathwork, 2. RA activation/america, 3. oblique am[place] Side bilateral Equipment Used 65 cm marshallese ball, self tactile cues at ASIS Reps/Minutes 1. 10 breaths, 2. 10 x 2-3 breaths, 3. Comments verbal cues for form, reports good activation; pain free w/ all Standing Exercises reverse clam Side bilateral Resistance AROM Reps/Minutes 10 clam Side bilateral Resistance AROM Reps/Minutes 10 ea Comments verbal cues for correct form and TrA, self tactile cue at hip for alignment Other Exercises stretching Other Exercise Name 1. hip flexor at stairs, 2. modified pigeon at plinth, 3. HS stretch stairs Side bilateral Reps/Minutes 1. 10 breaths, 2. 60 ea, 3. 60 ea Comments reports no increase in back pain; stretching feels good Therapeutic Activity Therapeutic Activity diaphragmatic breathing Reps/Minutes 8 minutes, throughout session Comments Educated on correct execution and rationale of technique for parasympathetic modulation. Verbal cues from PT, self tactile cues at chest and abdomen. Manual Therapy Treatment Consent Patient gave verbal consent for manual Yes treatment Soft Tissue Mobilization B hips/glutes Body Location hip flexors Mobilization Type Rolling,Strumming Intensity/Depth Moderate Body Position Supine Comments Performed B. L more restricted than R. Monitored for pain lumbar paraspinals Body Location QL, paraspinals Mobilization Type Rolling,Strumming Intensity/Depth Superficial Body Position Sidelying Comments Performed B. Gentle rolling and strumming. Also performed w/ lateral flexion mobilization and gentle A/P pelvic tilts. Pt responds well . Monitored for pain. L side more restricted PT-OP-T Assessment and Plan Start: 03/01/24 09:02 Freq: Status: Active Protocol: Document 03/07/24 09:46 NM (Rec: 03/07/24 10:37 NM [id number]) Physical Therapy Assessment Goals Four Impairment not performing HEP Short Term Goal (STG) Pt will be issued HEP and will report compliance at least 3x /wk in order to maximize progression with PT STG Duration 4 weeks Practice Business Asst Goal (LTG) Pt will report compliance with HEP at least 3x/wk in order to transition to maintenance program following discharge from PT LTG Duration 10 weeks Three Impairment sitting and standing tolerance impaired <30 min Short Term Goal (STG) Pt will report that she is able to sit and stand for at least 30 minutes without increase in back pain in order to demonstrate improved symptom management STG Duration 6 weeks Snf Goal (LTG) Pt will report that she is able to sit and stand for at least 60 minutes without increase in back pain in order to demonstrate improved symptom management and activity tolerance LTG Duration 10 weeks Two Impairment sleeping impaired: unable to sleep w/o medication Short Term Goal (STG) Pt will be educated on sleeping ergonomics to improve sleeping quality STG Duration 3 weeks Practice Business Asst Goal (LTG) Pt will report that her sleep is limited <50% of the time due to her back pain LTG Duration 10 weeks One Impairment oswestry 64/100 Snf Goal (LTG) Pt will decrease Oswestry impairment score to less than 50% impairment in order to demonstrate improved symptom management and activity tolerance for ADLs. LTG Duration 10 weeks Assessment Summary Assessment Pt tolerated session well, reports no changes in pain symptoms in low back at end of session but does report feeling more relaxed and stretched out. Initiated seated core/trunk bracing today, in addition to gentle hip strengthening and stretching. Cued for form and correct execution, in addition to promotion of neutral spine . Pt can tolerate exercises in small doses, but provides good effort. Trialed gentle soft tissue mobilization of lumbar spine and hips; pt has more restrictions on L hip than R hip. Pt would benefit from skilled PT for progressive flexibility and strengthening in order to improve symptom management and ability to perform ADLs/IADLs or job requirements. Physical Therapy Plan Frequency and Duration Frequency of Treatment 1-2x/wk Duration of treatment (weeks) 10 Plan of Care Start Date 03/01/24 Plan of Care End Date 05/12/24 Therapeutic Interventions Therapeutic Interventions Balance Training,Gait Training ,Home Exercise Program,Joint Mobilizations,Manual Therapy, Neuromuscular Re-education, Orthotic/Prosthetic Management ,Patient/Caregiver Education, Self-Care/Home Management, Sensory Integration,Soft Tissue Mobilization,Taping, Therapeutic Activities, Therapeutic Exercises Modalities Cold Pack/Ice Massage,Electric Stimulation,Hot Packs, Ultrasound Other Referrals/Consults Referrals/Consults Recommended MRI and referral to operations and maintenance specialist and/or auto painter helper, in addition to referral to counselor Next Visit Focus/Plan Next Note Type Treatment Note Next Visit Plan Address sleeping, sitting ergonomics, transfers (log roll, bed mobility), hip hinge manual therapy: sidelying with pillow to lumbar spine and paraspinals Cont with gentle core bracing (seated > supine, can trial supine), review clams/reverse clams, stretching. trial STS
--- NOTE | 2024-03-14 10:41 | PT.OTN ---
Current Diagnoses Stiffness of right hip, not elsewhere classified (03/14/24) Dorsalgia, unspecified (03/14/24) Weakness (03/14/24) Physical Therapy Treatment Note PT-OP-A Visit Information Start: 03/01/24 09:02 Freq: Status: Active Protocol: Document 03/14/24 08:54 AB (Rec: 03/14/24 10:41 AB [id number]) Out-Patient Physical Therapy Visit Information Visit Information Visit Type Treatment Note Visit Note Max 24 visits Visit Start Time 09:47 Visit Stop Time 10:32 Visit Number 08/28 Number of PERSONAL SERVICE WORKERS Visits 1 Evaluation Information Evaluation Date 03/01/24 PT-OP-B Current Condition Start: 03/01/24 09:02 Freq: Status: Active Protocol: Document 03/01/24 09:45 NM (Rec: 03/01/24 11:07 NM [id number]) Current Condition History of Current Condition Onset Date ~January 2024 Current Complaints pain History of Current Condition Pt reports that she has back pain, reports that has worsened over 6 months to 1 year. Reports that tylenol/ ibuprofen helps. She states that in January, she went to bed and was unable to get up out of bed in the morning. Reports no other known LOUIS. She has had imaging and was sent home with muscle relaxers . She does take narcotics to sleep. She had been on medical leave since January. Pt works on [employer], started in September . Pt lives with her daughters. Pt has intermittent random spasms, that are extremely painful. Pt has not had an MRI or spine doctor; she has been referred for spinal injections. Pt reports that she has had back pain only when (youngest 2015 born). Pt had a hysterectomy in 2022/2023. She had an achilles surgery 2x last year, back pain is on the same side . 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 She sleeps on her R side, with her leg over her boyfriend or using a pillow. No numbness/tingling in RLE. She states that she goes through hot flashes due to pain. Prior Treatments and Tests medical leave up on April Radiographs of lumbar spine : mild multilevel facet arthropathy, question B L5 pars defect, no acute bony abnormality PT-OP-C Subjective Start: 03/01/24 09:02 Freq: Status: Active Protocol: Document 03/14/24 08:54 AB (Rec: 03/14/24 10:41 AB [id number]) OP-PT Subjective Patient Comments Patient Comments Patient reports she has to move to decrease pain, unable to watch a 2 hour movie without getting up. Sit to and from stand with guarded movement, reports pulling sensation right LS area. Patient reports she is not better, felt better post previous session didn't do to much more than normal, but had increased pain post. PT-OP-E Functional Tests Start: 03/01/24 09:02 Freq: Status: Active Protocol: Document 03/01/24 09:45 NM (Rec: 03/01/24 11:07 NM [id number]) Functional Tests Other Forward Trunk Flexion Test Name of Test measured finger to floor Score 18 Comment pain reproduced PT-OP-F Manual Assessment Start: 03/01/24 09:02 Freq: Status: Active Protocol: Document 03/01/24 09:45 NM (Rec: 03/01/24 11:07 NM [id number]) Manual Assessments Soft Tissue Assessment Soft Tissue Mobility Assessment Atrophy of R lumbar paraspinals Joint Mobility Assessment Joint Mobility Assessment Decreased R hip passive mobility, decreased lumbopelvic mobility PT-OP-G Mobility & Gait Start: 03/01/24 09:02 Freq: Status: Active Protocol: Document 03/01/24 09:45 NM (Rec: 03/01/24 11:07 NM [id number]) OP Mobility Evaluation Transfers Sit to Stand Must use BUE to assist with transfer, increases back pain OP Gait Assessment Gait Gait Assistance Required: Independent Distance (Feet) 150 Gait Deviations General Gait Pattern Antalgic Factors Limiting Gait Function Factors Limiting Gait Function Decreased Activity Tolerance, Limited Range of Motion,Pain Comments Gait Comments Decreased trunk motion, decreased R stance time PT-OP-H Neuro Start: 03/01/24 09:02 Freq: Status: Active Protocol: Document 03/01/24 09:45 NM (Rec: 03/01/24 11:07 NM [id number]) Sensation Evaluation Comments Summary Comments Intact equally to light touch sensation along BLE except for R lateral thigh, which is less sensitive to light touch Deep Tendon Reflex & Clonus Assessment Deep Tendon Reflex Bilateral Achilles Deep Tendon Reflex 1+ Diminished Bilateral Patellar Deep Tendon Reflex 2+ Normal PT-OP-J Posture/Palpation/Skin Start: 03/01/24 09:02 Freq: Status: Active Protocol: Document 03/01/24 09:45 NM (Rec: 03/01/24 11:07 NM [id number]) Posture Evaluation Position Standing Head/C-Spine Posture Forward Head T-Spine Posture Increased Kyphosis L-Spine Posture Decreased Lordosis Shoulder Posture (L) Rounded,(R) Rounded Arm Posture (L) Internally Rotated,(R) Internally Rotated Hip Posture (L) Externally Rotated,(R) Externally Rotated Knee Posture (L) Genu Valgus,(R) Genu Valgus Palpation Assessment Location lumbar spine Palpation Findings Soft Tissue Tightness,Muscle Guarding,Tenderness Palpation Details Tenderness along midline and R sided lumbar vertebrae, R SIJ /PSIS, R sided paraspinals, glutes, QL, hip abductors Atrophy noted along R sided lumbar paraspinals compared to L side Mild tenderness along L paraspinals PT-OP-K Range of Motion Start: 03/01/24 09:02 Freq: Status: Active Protocol: Document 03/01/24 09:45 NM (Rec: 03/01/24 11:07 NM [id number]) Lumbar Spine Range of Motion Lumbar Spine Active Percentage Flexion 50 Extension 25 Rotation Left 6 Rotation Right 4 Lateral Flexion Left 50 Lateral Flexion Right 25 Comments pain with flexion, extension ( worse), R LF, rotation B (R>L) Hip Goniometric Range of Motion Hip Right Internal Rotation 28 External Rotation 25 Comments pain reproduced in low back Left Internal Rotation 35 External Rotation 30 PT-OP-L Special Tests Start: 03/01/24 09:02 Freq: Status: Active Protocol: Document 03/01/24 09:45 NM (Rec: 03/01/24 11:07 NM [id number]) Special Tests Lumbar Spine Special Tests Sims/Quadrant Test Results + Comments B Distraction Test Results - Straight Leg Raise Test Results + Comments R Slump Test Results + Comments R PT-OP-M Strength Start: 03/01/24 09:02 Freq: Status: Active Protocol: Document 03/01/24 09:45 NM (Rec: 03/01/24 11:07 NM [id number]) Trunk Strength Trunk Manual Muscle Testing Flexion 4- Good- Rotation Left 4- Good- Rotation Right 3+ Fair+ Lateral Flexion Left 4- Good- Lateral Flexion Right 3+ Fair+ Comments pain with rot, R LF, flex Hip Strength Hip Manual Muscle Testing Right Flexion (L2) 4- Good- Extension (S1) 3+ Fair+ Abduction 3+ Fair+ Adduction 4- Good- External Rotation 4- Good- Internal Rotation 4- Good- Comments pain reproduced with resisted hip testing, jason abduction Left Flexion (L2) 4+ Good+ Extension (S1) 4+ Good+ Abduction 4 Good Adduction 4+ Good+ External Rotation 4 Good Internal Rotation 4 Good Knee Strength Knee Manual Muscle Testing Right Flexion (S2) 4- Good- Extension (L3) 4 Good Left Flexion (S2) 4+ Good+ Extension (L3) 4+ Good+ PT-OP-Q Treatments Start: 03/01/24 09:02 Freq: Status: Active Protocol: Document 03/14/24 08:54 AB (Rec: 03/14/24 10:41 AB [id number]) Therapeutic Exercises Supine Exercises Modified Richard stretch Supine Exercise Name HEP Side right Reps/Minutes one minute on second attempt Comments needs towel to hold left LE to chest piriformis stretch Supine Exercise Name HEP Side right Reps/Minutes 60 sec X 1 Comments Verbal cues Other Exercises Pallof press Side bilateral Equipment Used level one light blue band Reps/Minutes X10 each direction Comments verbal cues Therapeutic Activity Therapeutic Activity sit to stand Name X3 Comments Patient ed mechanics of sit to stand and self tactile cues for hip hinge supine to and from sit Reps/Minutes left and right multiple trials Comments Verbal cues for to scoot back in sitting, lie on side, then roll onto back. Verbal cues to bend knees roll onto side, then push up into sitting immediately after pushing legs off mat Manual Therapy Treatment Soft Tissue Mobilization B hips/glutes Body Location hip flexors and glute/ piriformis area right Mobilization Type Rolling,Strumming Intensity/Depth Moderate Body Position Supine Manual Techniques MET for right AI left PI and pubic shot gun Body Position Hooklying Reps/Duration 6 X 6 each tech PT-OP-T Assessment and Plan Start: 03/01/24 09:02 Freq: Status: Active Protocol: Document 03/14/24 08:54 AB (Rec: 03/14/24 10:41 AB [id number]) Physical Therapy Assessment Goals Four Impairment not performing HEP Short Term Goal (STG) Pt will be issued HEP and will report compliance at least 3x /wk in order to maximize progression with PT STG Duration 4 weeks [facility] Goal (LTG) Pt will report compliance with HEP at least 3x/wk in order to transition to maintenance program following discharge from PT LTG Duration 10 weeks Three Impairment sitting and standing tolerance impaired <30 min Short Term Goal (STG) Pt will report that she is able to sit and stand for at least 30 minutes without increase in back pain in order to demonstrate improved symptom management STG Duration 6 weeks [facility] Goal (LTG) Pt will report that she is able to sit and stand for at least 60 minutes without increase in back pain in order to demonstrate improved symptom management and activity tolerance LTG Duration 10 weeks Two Impairment sleeping impaired: unable to sleep w/o medication Short Term Goal (STG) Pt will be educated on sleeping ergonomics to improve sleeping quality STG Duration 3 weeks People Greeter Goal (LTG) Pt will report that her sleep is limited <50% of the time due to her back pain LTG Duration 10 weeks One Impairment oswestry 64/100 People Greeter Goal (LTG) Pt will decrease Oswestry impairment score to less than 50% impairment in order to demonstrate improved symptom management and activity tolerance for ADLs. LTG Duration 10 weeks Assessment Summary Assessment Patient reports she is feeling a little better, less pain end of session. Good return demonstration for hip hinge and reports of decreased pain this session. Physical Therapy Plan Frequency and Duration Frequency of Treatment 1-2x/wk Duration of treatment (weeks) 10 Plan of Care Start Date 03/01/24 Plan of Care End Date 05/12/24 Next Visit Focus/Plan Next Note Type Treatment Note Next Visit Plan Address sleeping, sitting ergonomics, manual therapy: sidelying with pillow to lumbar spine and paraspinals Cont with gentle core bracing (seated > supine, can trial supine), review clams/reverse clams, stretching. trial STS
--- NOTE | 2024-03-23 16:08 | PT.OTN ---
Current Diagnoses Stiffness of right hip, not elsewhere classified (03/23/24) Dorsalgia, unspecified (03/23/24) Weakness (03/23/24) Physical Therapy Treatment Note PT-OP-A Visit Information Start: 03/01/24 09:02 Freq: Status: Active Protocol: Document 03/23/24 09:45 SW (Rec: 03/23/24 10:39 SW [id number]) Out-Patient Physical Therapy Visit Information Visit Information Visit Type Treatment Note Visit Start Time 09:46 Visit Stop Time 10:26 Visit Number 09/28 Number of HAM SMOKER Visits 2 PT-OP-B Current Condition Start: 03/01/24 09:02 Freq: Status: Active Protocol: Document 03/01/24 09:45 NM (Rec: 03/01/24 11:07 NM [id number]) Current Condition History of Current Condition Onset Date ~January 2024 Current Complaints pain History of Current Condition Pt reports that she has back pain, reports that has worsened over 6 months to 1 year. Reports that tylenol/ ibuprofen helps. She states that in January, she went to bed and was unable to get up out of bed in the morning. Reports no other known LOUIS. She has had imaging and was sent home with muscle relaxers . She does take narcotics to sleep. She had been on medical leave since January. Pt works on [employer], started in September . Pt lives with her daughters. Pt has intermittent random spasms, that are extremely painful. Pt has not had an MRI or spine doctor; she has been referred for spinal injections. Pt reports that she has had back pain only when (youngest 2015 born). Pt had a hysterectomy in 2022/2023. She had an achilles surgery 2x last year, back pain is on the same side . 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 She sleeps on her R side, with her leg over her boyfriend or using a pillow. No numbness/tingling in RLE. She states that she goes through hot flashes due to pain. Prior Treatments and Tests medical leave up on April Radiographs of lumbar spine : mild multilevel facet arthropathy, question B L5 pars defect, no acute bony abnormality PT-OP-C Subjective Start: 03/01/24 09:02 Freq: Status: Active Protocol: Document 03/23/24 09:45 SW (Rec: 03/23/24 10:39 SW [id number]) OP-PT Subjective Patient Comments Patient Comments Pain level 7-8/10 and UTI. Pt reports had MRI yesterday, results are in, waiting on a call. Still waiting instrument mechanic weapons system to schedule from school psychology specialist. PT-OP-E Functional Tests Start: 03/01/24 09:02 Freq: Status: Active Protocol: Document 03/01/24 09:45 NM (Rec: 03/01/24 11:07 NM [id number]) Functional Tests Other Forward Trunk Flexion Test Name of Test measured finger to floor Score 18 Comment pain reproduced PT-OP-F Manual Assessment Start: 03/01/24 09:02 Freq: Status: Active Protocol: Document 03/01/24 09:45 NM (Rec: 03/01/24 11:07 NM [id number]) Manual Assessments Soft Tissue Assessment Soft Tissue Mobility Assessment Atrophy of R lumbar paraspinals Joint Mobility Assessment Joint Mobility Assessment Decreased R hip passive mobility, decreased lumbopelvic mobility PT-OP-G Mobility & Gait Start: 03/01/24 09:02 Freq: Status: Active Protocol: Document 03/01/24 09:45 NM (Rec: 03/01/24 11:07 NM [id number]) OP Mobility Evaluation Transfers Sit to Stand Must use BUE to assist with transfer, increases back pain OP Gait Assessment Gait Gait Assistance Required: Independent Distance (Feet) 150 Gait Deviations General Gait Pattern Antalgic Factors Limiting Gait Function Factors Limiting Gait Function Decreased Activity Tolerance, Limited Range of Motion,Pain Comments Gait Comments Decreased trunk motion, decreased R stance time PT-OP-H Neuro Start: 03/01/24 09:02 Freq: Status: Active Protocol: Document 03/01/24 09:45 NM (Rec: 03/01/24 11:07 NM [id number]) Sensation Evaluation Comments Summary Comments Intact equally to light touch sensation along BLE except for R lateral thigh, which is less sensitive to light touch Deep Tendon Reflex & Clonus Assessment Deep Tendon Reflex Bilateral Achilles Deep Tendon Reflex 1+ Diminished Bilateral Patellar Deep Tendon Reflex 2+ Normal PT-OP-J Posture/Palpation/Skin Start: 03/01/24 09:02 Freq: Status: Active Protocol: Document 03/01/24 09:45 NM (Rec: 03/01/24 11:07 NM [id number]) Posture Evaluation Position Standing Head/C-Spine Posture Forward Head T-Spine Posture Increased Kyphosis L-Spine Posture Decreased Lordosis Shoulder Posture (L) Rounded,(R) Rounded Arm Posture (L) Internally Rotated,(R) Internally Rotated Hip Posture (L) Externally Rotated,(R) Externally Rotated Knee Posture (L) Genu Valgus,(R) Genu Valgus Palpation Assessment Location lumbar spine Palpation Findings Soft Tissue Tightness,Muscle Guarding,Tenderness Palpation Details Tenderness along midline and R sided lumbar vertebrae, R SIJ /PSIS, R sided paraspinals, glutes, QL, hip abductors Atrophy noted along R sided lumbar paraspinals compared to L side Mild tenderness along L paraspinals PT-OP-K Range of Motion Start: 03/01/24 09:02 Freq: Status: Active Protocol: Document 03/01/24 09:45 NM (Rec: 03/01/24 11:07 NM [id number]) Lumbar Spine Range of Motion Lumbar Spine Active Percentage Flexion 50 Extension 25 Rotation Left 6 Rotation Right 4 Lateral Flexion Left 50 Lateral Flexion Right 25 Comments pain with flexion, extension ( worse), R LF, rotation B (R>L) Hip Goniometric Range of Motion Hip Right Internal Rotation 28 External Rotation 25 Comments pain reproduced in low back Left Internal Rotation 35 External Rotation 30 PT-OP-L Special Tests Start: 03/01/24 09:02 Freq: Status: Active Protocol: Document 03/01/24 09:45 NM (Rec: 03/01/24 11:07 NM [id number]) Special Tests Lumbar Spine Special Tests Sims/Quadrant Test Results + Comments B Distraction Test Results - Straight Leg Raise Test Results + Comments R Slump Test Results + Comments R PT-OP-M Strength Start: 03/01/24 09:02 Freq: Status: Active Protocol: Document 03/01/24 09:45 NM (Rec: 03/01/24 11:07 NM [id number]) Trunk Strength Trunk Manual Muscle Testing Flexion 4- Good- Rotation Left 4- Good- Rotation Right 3+ Fair+ Lateral Flexion Left 4- Good- Lateral Flexion Right 3+ Fair+ Comments pain with rot, R LF, flex Hip Strength Hip Manual Muscle Testing Right Flexion (L2) 4- Good- Extension (S1) 3+ Fair+ Abduction 3+ Fair+ Adduction 4- Good- External Rotation 4- Good- Internal Rotation 4- Good- Comments pain reproduced with resisted hip testing, jason abduction Left Flexion (L2) 4+ Good+ Extension (S1) 4+ Good+ Abduction 4 Good Adduction 4+ Good+ External Rotation 4 Good Internal Rotation 4 Good Knee Strength Knee Manual Muscle Testing Right Flexion (S2) 4- Good- Extension (L3) 4 Good Left Flexion (S2) 4+ Good+ Extension (L3) 4+ Good+ PT-OP-Q Treatments Start: 03/01/24 09:02 Freq: Status: Active Protocol: Document 03/23/24 09:45 (Rec: 03/23/24 10:39 [id number]) Therapeutic Exercises Supine Exercises HS stretch Supine Exercise Name HS stretch (HEP HO issued) Side right Reps/Minutes 3 x 30 Modified Richard stretch Supine Exercise Name HEP Side right Reps/Minutes 60 Comments Towel hold LLE kne to chest piriformis stretch Supine Exercise Name HEP Side right Reps/Minutes 60 sec X 1 Comments Verbal cues Standing Exercises reverse clam Side bilateral Resistance AROM Reps/Minutes 10 clam Side bilateral Resistance AROM Reps/Minutes 10 ea Comments verbal cues for correct form and TrA, self tactile cue at hip for alignment Manual Therapy Treatment Soft Tissue Mobilization B hips/glutes Body Location hip flexors and glute/ piriformis area right Mobilization Type Rolling,Strumming Intensity/Depth Moderate Body Position Supine lumbar paraspinals Body Location QL, paraspinals Mobilization Type Rolling,Strumming Intensity/Depth Superficial Body Position Sidelying Comments Performed B. Gentle rolling and strumming. Also performed w/ lateral flexion mobilization and gentle A/P pelvic tilts. Pt responds well . Monitored for pain. L side more restricted Self-Care/Home Management Treatment Education Patient Education Body Mechanics,Home Exercise Program,Posture,Safety Other Education Pt education on HEP exercises. Verbal review of sleep posture. Verbal review of log rolling for transfer in and out of bed to assist with pain . PT-OP-T Assessment and Plan Start: 03/01/24 09:02 Freq: Status: Active Protocol: Document 03/23/24 09:45 SW (Rec: 03/23/24 10:39 [id number]) Physical Therapy Assessment Goals Four Impairment not performing HEP Short Term Goal (STG) Pt will be issued HEP and will report compliance at least 3x /wk in order to maximize progression with PT STG Duration 4 weeks Penitentiary Goal (LTG) Pt will report compliance with HEP at least 3x/wk in order to transition to maintenance program following discharge from PT LTG Duration 10 weeks Three Impairment sitting and standing tolerance impaired <30 min Short Term Goal (STG) Pt will report that she is able to sit and stand for at least 30 minutes without increase in back pain in order to demonstrate improved symptom management STG Duration 6 weeks [employer] Spanish Teacher Goal (LTG) Pt will report that she is able to sit and stand for at least 60 minutes without increase in back pain in order to demonstrate improved symptom management and activity tolerance LTG Duration 10 weeks Two Impairment sleeping impaired: unable to sleep w/o medication Short Term Goal (STG) Pt will be educated on sleeping ergonomics to improve sleeping quality STG Duration 3 weeks Penitentiary Goal (LTG) Pt will report that her sleep is limited <50% of the time due to her back pain LTG Duration 10 weeks One Impairment oswestry 64/100 Penitentiary Goal (LTG) Pt will decrease Oswestry impairment score to less than 50% impairment in order to demonstrate improved symptom management and activity tolerance for ADLs. LTG Duration 10 weeks Assessment Summary Assessment Session focused on manual therapy today to decrease pt pain level, decreased tension post manual. Reviewed hip strengthening, pt reported tightness in hamstrings with movement, initiated hamstring stretch, pt very limited in HS length, good feedback with stretch no pain, issued HEP HO . Physical Therapy Plan Frequency and Duration Frequency of Treatment 1-2x/wk Duration of treatment (weeks) 10 Plan of Care Start Date 03/01/24 Plan of Care End Date 05/12/24 Therapeutic Interventions Therapeutic Interventions Balance Training,Gait Training ,Home Exercise Program,Joint Mobilizations,Manual Therapy, Neuromuscular Re-education, Orthotic/Prosthetic Management ,Patient/Caregiver Education, Self-Care/Home Management, Sensory Integration,Soft Tissue Mobilization,Taping, Therapeutic Activities, Therapeutic Exercises Modalities Cold Pack/Ice Massage,Electric Stimulation,Hot Packs, Ultrasound Other Referrals/Consults Referrals/Consults Recommended MRI and referral to school psychology specialist and/or auto painter, in addition to referral to counselor Next Visit Focus/Plan Next Note Type Treatment Note Next Visit Plan Address sleeping, sitting ergonomics, manual therapy: sidelying with pillow to lumbar spine and paraspinals Cont with gentle core bracing (seated > supine, can trial supine), review clams/reverse clams, stretching. trial STS
--- NOTE | 2024-03-28 12:47 | PT.OTN ---
Current Diagnoses Stiffness of right hip, not elsewhere classified (03/28/24) Dorsalgia, unspecified (03/28/24) Weakness (03/28/24) Physical Therapy Treatment Note PT-OP-A Visit Information Start: 03/01/24 09:02 Freq: Status: Active Protocol: Document 03/28/24 11:35 SW (Rec: 03/28/24 12:47 SW [id number]) Out-Patient Physical Therapy Visit Information Visit Information Visit Type Treatment Note Visit Start Time 11:32 Visit Stop Time 12:12 Visit Number 10/28 Number of ASW SPECIALIST Visits 3 PT-OP-B Current Condition Start: 03/01/24 09:02 Freq: Status: Active Protocol: Document 03/01/24 09:45 NM (Rec: 03/01/24 11:07 NM [id number]) Current Condition History of Current Condition Onset Date ~January 2024 Current Complaints pain History of Current Condition Pt reports that she has back pain, reports that has worsened over 6 months to 1 year. Reports that tylenol/ ibuprofen helps. She states that in January, she went to bed and was unable to get up out of bed in the morning. Reports no other known LOUIS. She has had imaging and was sent home with muscle relaxers . She does take narcotics to sleep. She had been on medical leave since January. Pt works on [employer], started in September . Pt lives with her daughters. Pt has intermittent random spasms, that are extremely painful. Pt has not had an MRI or spine doctor; she has been referred for spinal injections. Pt reports that she has had back pain only when (youngest 2015 born). Pt had a hysterectomy in 2022/2023. She had an achilles surgery 2x last year, back pain is on the same side . 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 She sleeps on her R side, with her leg over her boyfriend or using a pillow. No numbness/tingling in RLE. She states that she goes through hot flashes due to pain. Prior Treatments and Tests medical leave up on April Radiographs of lumbar spine : mild multilevel facet arthropathy, question B L5 pars defect, no acute bony abnormality PT-OP-C Subjective Start: 03/01/24 09:02 Freq: Status: Active Protocol: Document 03/28/24 11:35 SW (Rec: 03/28/24 12:47 [id number]) OP-PT Subjective Patient Comments Patient Comments Pt reports feels like getting better, stretches are helping. MRI result are still pending. Pt reports pain level has been down, staying mostly around a 4/10, night seems to be when the worst pain is felt . Pt reports cancelled all currently scheduled PT sessions due to new job, and changes in schedule with trainings, waiting on MRI results and pain specialist appointment, may return to PT at a later date. PT-OP-E Functional Tests Start: 03/01/24 09:02 Freq: Status: Active Protocol: Document 03/01/24 09:45 NM (Rec: 03/01/24 11:07 NM [id number]) Functional Tests Other Forward Trunk Flexion Test Name of Test measured finger to floor Score 18 Comment pain reproduced PT-OP-F Manual Assessment Start: 03/01/24 09:02 Freq: Status: Active Protocol: Document 03/01/24 09:45 NM (Rec: 03/01/24 11:07 NM [id number]) Manual Assessments Soft Tissue Assessment Soft Tissue Mobility Assessment Atrophy of R lumbar paraspinals Joint Mobility Assessment Joint Mobility Assessment Decreased R hip passive mobility, decreased lumbopelvic mobility PT-OP-G Mobility & Gait Start: 03/01/24 09:02 Freq: Status: Active Protocol: Document 03/01/24 09:45 NM (Rec: 03/01/24 11:07 NM [id number]) OP Mobility Evaluation Transfers Sit to Stand Must use BUE to assist with transfer, increases back pain OP Gait Assessment Gait Gait Assistance Required: Independent Distance (Feet) 150 Gait Deviations General Gait Pattern Antalgic Factors Limiting Gait Function Factors Limiting Gait Function Decreased Activity Tolerance, Limited Range of Motion,Pain Comments Gait Comments Decreased trunk motion, decreased R stance time PT-OP-H Neuro Start: 03/01/24 09:02 Freq: Status: Active Protocol: Document 03/01/24 09:45 NM (Rec: 03/01/24 11:07 NM [id number]) Sensation Evaluation Comments Summary Comments Intact equally to light touch sensation along BLE except for R lateral thigh, which is less sensitive to light touch Deep Tendon Reflex & Clonus Assessment Deep Tendon Reflex Bilateral Achilles Deep Tendon Reflex 1+ Diminished Bilateral Patellar Deep Tendon Reflex 2+ Normal PT-OP-J Posture/Palpation/Skin Start: 03/01/24 09:02 Freq: Status: Active Protocol: Document 03/01/24 09:45 NM (Rec: 03/01/24 11:07 NM [id number]) Posture Evaluation Position Standing Head/C-Spine Posture Forward Head T-Spine Posture Increased Kyphosis L-Spine Posture Decreased Lordosis Shoulder Posture (L) Rounded,(R) Rounded Arm Posture (L) Internally Rotated,(R) Internally Rotated Hip Posture (L) Externally Rotated,(R) Externally Rotated Knee Posture (L) Genu Valgus,(R) Genu Valgus Palpation Assessment Location lumbar spine Palpation Findings Soft Tissue Tightness,Muscle Guarding,Tenderness Palpation Details Tenderness along midline and R sided lumbar vertebrae, R SIJ /PSIS, R sided paraspinals, glutes, QL, hip abductors Atrophy noted along R sided lumbar paraspinals compared to L side Mild tenderness along L paraspinals PT-OP-K Range of Motion Start: 03/01/24 09:02 Freq: Status: Active Protocol: Document 03/01/24 09:45 NM (Rec: 03/01/24 11:07 NM [id number]) Lumbar Spine Range of Motion Lumbar Spine Active Percentage Flexion 50 Extension 25 Rotation Left 6 Rotation Right 4 Lateral Flexion Left 50 Lateral Flexion Right 25 Comments pain with flexion, extension ( worse), R LF, rotation B (R>L) Hip Goniometric Range of Motion Hip Right Internal Rotation 28 External Rotation 25 Comments pain reproduced in low back Left Internal Rotation 35 External Rotation 30 PT-OP-L Special Tests Start: 03/01/24 09:02 Freq: Status: Active Protocol: Document 03/01/24 09:45 NM (Rec: 03/01/24 11:07 NM [id number]) Special Tests Lumbar Spine Special Tests Sims/Quadrant Test Results + Comments B Distraction Test Results - Straight Leg Raise Test Results + Comments R Slump Test Results + Comments R PT-OP-M Strength Start: 03/01/24 09:02 Freq: Status: Active Protocol: Document 03/01/24 09:45 NM (Rec: 03/01/24 11:07 NM [id number]) Trunk Strength Trunk Manual Muscle Testing Flexion 4- Good- Rotation Left 4- Good- Rotation Right 3+ Fair+ Lateral Flexion Left 4- Good- Lateral Flexion Right 3+ Fair+ Comments pain with rot, R LF, flex Hip Strength Hip Manual Muscle Testing Right Flexion (L2) 4- Good- Extension (S1) 3+ Fair+ Abduction 3+ Fair+ Adduction 4- Good- External Rotation 4- Good- Internal Rotation 4- Good- Comments pain reproduced with resisted hip testing, jason abduction Left Flexion (L2) 4+ Good+ Extension (S1) 4+ Good+ Abduction 4 Good Adduction 4+ Good+ External Rotation 4 Good Internal Rotation 4 Good Knee Strength Knee Manual Muscle Testing Right Flexion (S2) 4- Good- Extension (L3) 4 Good Left Flexion (S2) 4+ Good+ Extension (L3) 4+ Good+ PT-OP-Q Treatments Start: 03/01/24 09:02 Freq: Status: Active Protocol: Document 03/28/24 11:35 (Rec: 03/28/24 12:47 [id number]) Therapeutic Exercises Supine Exercises TrA Supine Exercise Name TA engagement>Marches> Heel slides> SLR Side bilateral Comments cues for core activation, pain free HS stretch Supine Exercise Name HEP reviewed Side right Reps/Minutes 3 x 30 Modified Richard stretch Supine Exercise Name HEP reviewed Side right Reps/Minutes 60 Comments Towel hold LLE kne to chest piriformis stretch Supine Exercise Name HEP reviewed Side right Reps/Minutes 60 sec X 1 Comments Verbal cues Standing Exercises reverse clam Side bilateral Resistance Lvl 1 TB Reps/Minutes 2x10 clam Side bilateral Resistance Lvl 1 TB Reps/Minutes 2x10 Other Exercises STS Other Exercise Name HEP- issued HO Resistance AROM Reps/Minutes x10 Comments BUE>No UE, cues for hip hinge and alignment Pallof press Other Exercise Name Reviewed Side bilateral Equipment Used Lvl 2 band Reps/Minutes X10 each direction Comments verbal cues Self-Care/Home Management Treatment Education Patient Education Body Mechanics,Home Exercise Program,Posture Other Education HEP, posture, sitting ergonomics PT-OP-T Assessment and Plan Start: 03/01/24 09:02 Freq: Status: Active Protocol: Document 03/28/24 11:35 (Rec: 03/28/24 12:47 [id number]) Physical Therapy Assessment Goals Four Impairment not performing HEP Short Term Goal (STG) Pt will be issued HEP and will report compliance at least 3x /wk in order to maximize progression with PT STG Duration 4 weeks Longterm Goal (LTG) Pt will report compliance with HEP at least 3x/wk in order to transition to maintenance program following discharge from PT LTG Duration 10 weeks Three Impairment sitting and standing tolerance impaired <30 min Short Term Goal (STG) Pt will report that she is able to sit and stand for at least 30 minutes without increase in back pain in order to demonstrate improved symptom management STG Duration 6 weeks Guard Driver Goal (LTG) Pt will report that she is able to sit and stand for at least 60 minutes without increase in back pain in order to demonstrate improved symptom management and activity tolerance LTG Duration 10 weeks Two Impairment sleeping impaired: unable to sleep w/o medication Short Term Goal (STG) Pt will be educated on sleeping ergonomics to improve sleeping quality STG Duration 3 weeks Longterm Goal (LTG) Pt will report that her sleep is limited <50% of the time due to her back pain LTG Duration 10 weeks One Impairment oswestry 64/100 Longterm Goal (LTG) Pt will decrease Oswestry impairment score to less than 50% impairment in order to demonstrate improved symptom management and activity tolerance for ADLs. LTG Duration 10 weeks Assessment Summary Assessment Progressed pt this session with addition of resistance during sidelying exercises, good tolerance, no pain, cues for alignment and core stabilization. Reviewed STS this session, issued HEP HO for carryover at home, pt initially required BUE support to come into standing, verbal /visual cues for alignment, hip hinge and shifting COG to prevent posterior LOB into chair, good carryover of cues demonstrated improved mechanics and pt able to STS w /out UE use. Extended time on HEP exercises today for carryover and correct execution, progression and regressions. Pt education on postural alignment, sitting ergonomics. Pt cancelled further scheduled PT sessions d/t change in career and schedule conflict, pt reports may return to PT in the future . Physical Therapy Plan Frequency and Duration Frequency of Treatment 1-2x/wk Duration of treatment (weeks) 10 Plan of Care Start Date 03/01/24 Plan of Care End Date 05/12/24 Therapeutic Interventions Therapeutic Interventions Balance Training,Gait Training ,Home Exercise Program,Joint Mobilizations,Manual Therapy, Neuromuscular Re-education, Orthotic/Prosthetic Management ,Patient/Caregiver Education, Self-Care/Home Management, Sensory Integration,Soft Tissue Mobilization,Taping, Therapeutic Activities, Therapeutic Exercises Modalities Cold Pack/Ice Massage,Electric Stimulation,Hot Packs, Ultrasound Other Referrals/Consults Referrals/Consults Recommended MRI and referral to specialist managers and/or painter, in addition to referral to counselor Next Visit Focus/Plan Next Note Type Treatment Note Next Visit Plan Address sleeping, sitting ergonomics, manual therapy: sidelying with pillow to lumbar spine and paraspinals Cont with gentle core bracing (seated > supine, can trial supine), review clams/reverse clams, stretching. trial STS
--- NOTE | 2024-03-28 16:08 | PT-OP ANOTE ---
PT called and spoke to pt following AVIATION ENGINEER report that pt canceled all appt since starting new job. PT asked pt is wants to discharge, but pt thinks that she will be able to attend intermittently, just not sure of dates at this time unless schedules in advance. 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 Would have to go back to work otherwise next week. She has not seen ortho yet and is waiting for appt. Reports that she is having less pain that at initial evaluation and feels like she is improving; has been doing HEP. PT informed pt that she will be placed on waitlist, must be seen by Elisa for progress note/re-evaluation, and that her plan ends 05/12 so must be seen before then. Pt verbalizes understanding.
--- NOTE | 2024-04-20 09:36 | PT.OTN ---
Current Diagnoses Stiffness of right hip, not elsewhere classified (04/20/24) Dorsalgia, unspecified (04/20/24) Weakness (04/20/24) Physical Therapy Treatment Note PT-OP-A Visit Information Start: 03/01/24 09:02 Freq: Status: Active Protocol: Document 04/20/24 07:28 NM (Rec: 04/20/24 08:16 NM [id number]) Out-Patient Physical Therapy Visit Information Visit Information Visit Type Progress Note Visit Start Time 07:30 Visit Stop Time 08:13 Visit Number 11/28 Evaluation Information Evaluation Date 03/01/24 PT-OP-B Current Condition Start: 03/01/24 09:02 Freq: Status: Active Protocol: Document 03/01/24 09:45 NM (Rec: 03/01/24 11:07 NM [id number]) Current Condition History of Current Condition Onset Date ~January 2024 Current Complaints pain History of Current Condition Pt reports that she has back pain, reports that has worsened over 6 months to 1 year. Reports that tylenol/ ibuprofen helps. She states that in January, she went to bed and was unable to get up out of bed in the morning. Reports no other known LOUIS. She has had imaging and was sent home with muscle relaxers . She does take narcotics to sleep. She had been on medical leave since January. Pt works on [employer], started in September . Pt lives with her daughters. Pt has intermittent random spasms, that are extremely painful. Pt has not had an MRI or spine doctor; she has been referred for spinal injections. Pt reports that she has had back pain only when (youngest 2015 born). Pt had a hysterectomy in . She had an achilles surgery 2x last year, back pain is on the same side . 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 She sleeps on her R side, with her leg over her boyfriend or using a pillow. No numbness/tingling in RLE. She states that she goes through hot flashes due to pain. Prior Treatments and Tests medical leave up on April Radiographs of lumbar spine : mild multilevel facet arthropathy, question B L5 pars defect, no acute bony abnormality PT-OP-C Subjective Start: 03/01/24 09:02 Freq: Status: Active Protocol: Document 04/20/24 07:28 NM (Rec: 04/20/24 08:16 NM [id number]) OP-PT Subjective Patient Comments Patient Comments Pt reports back is doing decent. No severe pain. She did have an MRI and went to ortho. States that pars defect is as healed as going to get. 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 Planning to go to pain management. Has been doing HEP, which helps; does every morning before going to work, which has helped with stiffness and pain. PT-OP-E Functional Tests Start: 03/01/24 09:02 Freq: Status: Active Protocol: Document 03/01/24 09:45 NM (Rec: 03/01/24 11:07 NM [id number]) Functional Tests Other Forward Trunk Flexion Test Name of Test measured finger to floor Score 18 Comment pain reproduced PT-OP-F Manual Assessment Start: 03/01/24 09:02 Freq: Status: Active Protocol: Document 03/01/24 09:45 NM (Rec: 03/01/24 11:07 NM [id number]) Manual Assessments Soft Tissue Assessment Soft Tissue Mobility Assessment Atrophy of R lumbar paraspinals Joint Mobility Assessment Joint Mobility Assessment Decreased R hip passive mobility, decreased lumbopelvic mobility PT-OP-G Mobility & Gait Start: 03/01/24 09:02 Freq: Status: Active Protocol: Document 03/01/24 09:45 NM (Rec: 03/01/24 11:07 NM [id number]) OP Mobility Evaluation Transfers Sit to Stand Must use BUE to assist with transfer, increases back pain OP Gait Assessment Gait Gait Assistance Required: Independent Distance (Feet) 150 Gait Deviations General Gait Pattern Antalgic Factors Limiting Gait Function Factors Limiting Gait Function Decreased Activity Tolerance, Limited Range of Motion,Pain Comments Gait Comments Decreased trunk motion, decreased R stance time PT-OP-H Neuro Start: 03/01/24 09:02 Freq: Status: Active Protocol: Document 03/01/24 09:45 NM (Rec: 03/01/24 11:07 NM [id number]) Sensation Evaluation Comments Summary Comments Intact equally to light touch sensation along BLE except for R lateral thigh, which is less sensitive to light touch Deep Tendon Reflex & Clonus Assessment Deep Tendon Reflex Bilateral Achilles Deep Tendon Reflex 1+ Diminished Bilateral Patellar Deep Tendon Reflex 2+ Normal PT-OP-J Posture/Palpation/Skin Start: 03/01/24 09:02 Freq: Status: Active Protocol: Document 03/01/24 09:45 NM (Rec: 03/01/24 11:07 NM [id number]) Posture Evaluation Position Standing Head/C-Spine Posture Forward Head T-Spine Posture Increased Kyphosis L-Spine Posture Decreased Lordosis Shoulder Posture (L) Rounded,(R) Rounded Arm Posture (L) Internally Rotated,(R) Internally Rotated Hip Posture (L) Externally Rotated,(R) Externally Rotated Knee Posture (L) Genu Valgus,(R) Genu Valgus Palpation Assessment Location lumbar spine Palpation Findings Soft Tissue Tightness,Muscle Guarding,Tenderness Palpation Details Tenderness along midline and R sided lumbar vertebrae, R SIJ /PSIS, R sided paraspinals, glutes, QL, hip abductors Atrophy noted along R sided lumbar paraspinals compared to L side Mild tenderness along L paraspinals PT-OP-K Range of Motion Start: 03/01/24 09:02 Freq: Status: Active Protocol: Document 04/20/24 07:28 NM (Rec: 04/20/24 08:16 NM [id number]) Lumbar Spine Range of Motion Lumbar Spine Active Percentage Flexion 75 Extension 25 Rotation Left 6 Rotation Right 4 Lateral Flexion Left 50 Lateral Flexion Right 50 Comments pain with flexion, extension ( worse), R LF, rotation B (R>L) 04/20/24: no pain PT-OP-L Special Tests Start: 03/01/24 09:02 Freq: Status: Active Protocol: Document 03/01/24 09:45 NM (Rec: 03/01/24 11:07 NM [id number]) Special Tests Lumbar Spine Special Tests Sims/Quadrant Test Results + Comments B Distraction Test Results - Straight Leg Raise Test Results + Comments R Slump Test Results + Comments R PT-OP-M Strength Start: 03/01/24 09:02 Freq: Status: Active Protocol: Document 04/20/24 07:28 NM (Rec: 04/20/24 08:16 NM [id number]) Trunk Strength Trunk Manual Muscle Testing Flexion 4- Good- Rotation Left 4- Good- Rotation Right 3+ Fair+ Lateral Flexion Left 4- Good- Lateral Flexion Right 3+ Fair+ Comments pain with rot, R LF, flex 04/20/24: 4/5 PT-OP-Q Treatments Start: 03/01/24 09:02 Freq: Status: Active Protocol: Document 04/20/24 07:28 NM (Rec: 04/20/24 08:16 NM [id number]) Therapeutic Exercises Sitting Exercises swissball Sitting Exercise Name 1. marching alt, 2. lat pull down, 3. pallof Side bilateral Equipment Used 65 cm swissball Reps/Minutes 1. 10 ea, 2. lvl 1 band 15 reps, 3. lvl 1 band 15 reps ea Comments pain free; cued prn tall posture, core brace Other Exercises quadruped Other Exercise Name 1. breathwork, 2. firehydrant, 3. UE alt, 4. LE ext non-alt Side bilateral Equipment Used dowel on back for cue Reps/Minutes 1. 10, 2. 8 ea ,3. 10 ea, 4. 8 ea Comments cued elongated posture Therapeutic Activity Therapeutic Activity body mechanics Reps/Minutes 10 min Comments 1. hip hinge standing- edu and rationale, moderate cueing for form 2. band deadlift under feet- verbal and tactile cues for form, less knee flex and more hip hinge 3. crate pick ups from low surface Better hinge w/ functional movement, fewer cues sit to stand Reps/Minutes 2x8 Comments level 3 band at thighs self tactile cues for hip hinge, improved with reps. cued for slower eccentric control PT-OP-T Assessment and Plan Start: 03/01/24 09:02 Freq: Status: Active Protocol: Document 04/20/24 07:28 NM (Rec: 04/20/24 08:16 NM [id number]) Physical Therapy Assessment Goals Four Impairment not performing HEP Short Term Goal (STG) Pt will be issued HEP and will report compliance at least 3x /wk in order to maximize progression with PT STG Duration 4 weeks Beet Topper Goal (LTG) Pt will report compliance with HEP at least 3x/wk in order to transition to maintenance program following discharge from PT 04/20/24: pt performing HEP daily LTG Duration 10 weeks MET Three Impairment sitting and standing tolerance impaired <30 min Short Term Goal (STG) Pt will report that she is able to sit and stand for at least 30 minutes without increase in back pain in order to demonstrate improved symptom management STG Duration 6 weeks Custodial Goal (LTG) Pt will report that she is able to sit and stand for at least 60 minutes without increase in back pain in order to demonstrate improved symptom management and activity tolerance 04/20/24: pt repots that she is able to stand/sit for any length of time wihout increase in back pain or noticing pain ; watched movie for 2 hours w/ o moving and had 9 hr shift w/ only 1 hr break LTG Duration 10 weeks MET, PROGRESSING Two Impairment sleeping impaired: unable to sleep w/o medication Short Term Goal (STG) Pt will be educated on sleeping ergonomics to improve sleeping quality STG Duration 3 weeks Custodial Goal (LTG) Pt will report that her sleep is limited <50% of the time due to her back pain 04/20/24: pain sleeps through night without pain medication LTG Duration 10 weeks MET One Impairment oswestry 64/100 Custodial Goal (LTG) Pt will decrease Oswestry impairment score to less than 50% impairment in order to demonstrate improved symptom management and activity tolerance for ADLs. 04/20/24: LTG Duration 10 weeks MET Progress Towards Goals Progress Towards Goals Progressing Toward Goals,Goals Met Assessment Summary Assessment Pt tolerated session well, no back pain during or after session. Demos improved core bracing and able to progress into gentle extension for posterior chain strengthening. During quadruped, minimal cues to maintain stability of spine; most challenging to limit trunk rotation with firehydrants. Able to progress as well to seated core on unstable surface without pain. Moderate cueing for posture and for correct execution. Finished with body mechanics training to promote functional core bracing and hinge mechanics to decrease stress on low back with lifting ADLs. Challenging to coordinate hip hinge and squat; needs verbal and tactile cues to correctly perform. Pain free for all today Physical Therapy Plan Frequency and Duration Frequency of Treatment 1-2x/wk Duration of treatment (weeks) 10 Plan of Care Start Date 03/01/24 Plan of Care End Date 05/12/24 Therapeutic Interventions Therapeutic Interventions Balance Training,Gait Training ,Home Exercise Program,Joint Mobilizations,Manual Therapy, Neuromuscular Re-education, Orthotic/Prosthetic Management ,Patient/Caregiver Education, Self-Care/Home Management, Sensory Integration,Soft Tissue Mobilization,Taping, Therapeutic Activities, Therapeutic Exercises Modalities Cold Pack/Ice Massage,Electric Stimulation,Hot Packs, Ultrasound Other Referrals/Consults Referrals/Consults Recommended MRI and referral to food service specialist and/or interior decorator painting, in addition to referral to counselor Next Visit Focus/Plan Next Note Type Discharge Summary Next Visit Plan Hip hinge, body mechanics. HEP review and modications. Cont with quadruped work, trial bird dog, add band for hip strengthening manual therapy: sidelying with pillow to lumbar spine and paraspinals
--- NOTE | 2024-04-26 10:35 | PT.OTN ---
Current Diagnoses Stiffness of right hip, not elsewhere classified (04/26/24) Dorsalgia, unspecified (04/26/24) Weakness (04/26/24) Physical Therapy Treatment Note PT-OP-A Visit Information Start: 03/01/24 09:02 Freq: Status: Active Protocol: Document 04/26/24 08:16 NM (Rec: 04/26/24 09:01 NM [id number]) Out-Patient Physical Therapy Visit Information Visit Information Visit Type Discharge Summary Visit Start Time 08:16 Visit Stop Time 08:56 Visit Number 12/28 Evaluation Information Evaluation Date 03/01/24 PT-OP-B Current Condition Start: 03/01/24 09:02 Freq: Status: Active Protocol: Document 03/01/24 09:45 NM (Rec: 03/01/24 11:07 NM [id number]) Current Condition History of Current Condition Onset Date ~January 2024 Current Complaints pain History of Current Condition Pt reports that she has back pain, reports that has worsened over 6 months to 1 year. Reports that tylenol/ ibuprofen helps. She states that in January, she went to bed and was unable to get up out of bed in the morning. Reports no other known LOUIS. She has had imaging and was sent home with muscle relaxers . She does take narcotics to sleep. She had been on medical leave since January. Pt works on [employer], started in September . Pt lives with her daughters. Pt has intermittent random spasms, that are extremely painful. Pt has not had an MRI or spine doctor; she has been referred for spinal injections. Pt reports that she has had back pain only when (youngest 2015 born). Pt had a hysterectomy in . She had an achilles surgery 2x last year, back pain is on the same side . 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 She sleeps on her R side, with her leg over her boyfriend or using a pillow. No numbness/tingling in RLE. She states that she goes through hot flashes due to pain. Prior Treatments and Tests medical leave up on April Radiographs of lumbar spine : mild multilevel facet arthropathy, question B L5 pars defect, no acute bony abnormality PT-OP-C Subjective Start: 03/01/24 09:02 Freq: Status: Active Protocol: Document 04/26/24 08:16 NM (Rec: 04/26/24 09:01 NM [id number]) OP-PT Subjective Patient Comments Patient Comments Pt lost her job. 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 She is planning to ask for help when she spoke with marketing recruiter for 25# lifting. She reports that her back is doing well, has not been hurting. Pt is very stressed and anxious PT-OP-E Functional Tests Start: 03/01/24 09:02 Freq: Status: Active Protocol: Document 03/01/24 09:45 NM (Rec: 03/01/24 11:07 NM [id number]) Functional Tests Other Forward Trunk Flexion Test Name of Test measured finger to floor Score 18 Comment pain reproduced PT-OP-F Manual Assessment Start: 03/01/24 09:02 Freq: Status: Active Protocol: Document 03/01/24 09:45 NM (Rec: 03/01/24 11:07 NM [id number]) Manual Assessments Soft Tissue Assessment Soft Tissue Mobility Assessment Atrophy of R lumbar paraspinals Joint Mobility Assessment Joint Mobility Assessment Decreased R hip passive mobility, decreased lumbopelvic mobility PT-OP-G Mobility & Gait Start: 03/01/24 09:02 Freq: Status: Active Protocol: Document 03/01/24 09:45 NM (Rec: 03/01/24 11:07 NM [id number]) OP Mobility Evaluation Transfers Sit to Stand Must use BUE to assist with transfer, increases back pain OP Gait Assessment Gait Gait Assistance Required: Independent Distance (Feet) 150 Gait Deviations General Gait Pattern Antalgic Factors Limiting Gait Function Factors Limiting Gait Function Decreased Activity Tolerance, Limited Range of Motion,Pain Comments Gait Comments Decreased trunk motion, decreased R stance time PT-OP-H Neuro Start: 03/01/24 09:02 Freq: Status: Active Protocol: Document 03/01/24 09:45 NM (Rec: 03/01/24 11:07 NM [id number]) Sensation Evaluation Comments Summary Comments Intact equally to light touch sensation along BLE except for R lateral thigh, which is less sensitive to light touch Deep Tendon Reflex & Clonus Assessment Deep Tendon Reflex Bilateral Achilles Deep Tendon Reflex 1+ Diminished Bilateral Patellar Deep Tendon Reflex 2+ Normal PT-OP-J Posture/Palpation/Skin Start: 03/01/24 09:02 Freq: Status: Active Protocol: Document 03/01/24 09:45 NM (Rec: 03/01/24 11:07 NM [id number]) Posture Evaluation Position Standing Head/C-Spine Posture Forward Head T-Spine Posture Increased Kyphosis L-Spine Posture Decreased Lordosis Shoulder Posture (L) Rounded,(R) Rounded Arm Posture (L) Internally Rotated,(R) Internally Rotated Hip Posture (L) Externally Rotated,(R) Externally Rotated Knee Posture (L) Genu Valgus,(R) Genu Valgus Palpation Assessment Location lumbar spine Palpation Findings Soft Tissue Tightness,Muscle Guarding,Tenderness Palpation Details Tenderness along midline and R sided lumbar vertebrae, R SIJ /PSIS, R sided paraspinals, glutes, QL, hip abductors Atrophy noted along R sided lumbar paraspinals compared to L side Mild tenderness along L paraspinals PT-OP-K Range of Motion Start: 03/01/24 09:02 Freq: Status: Active Protocol: Document 04/26/24 08:16 NM (Rec: 04/26/24 09:01 NM [id number]) Lumbar Spine Range of Motion Lumbar Spine Active Percentage Flexion 75 Extension 25 Rotation Left 6 Rotation Right 4 Lateral Flexion Left 50 Lateral Flexion Right 50 Comments pain with flexion, extension ( worse), R LF, rotation B (R>L) 04/20/24: no pain PT-OP-L Special Tests Start: 03/01/24 09:02 Freq: Status: Active Protocol: Document 03/01/24 09:45 NM (Rec: 03/01/24 11:07 NM [id number]) Special Tests Lumbar Spine Special Tests Sims/Quadrant Test Results + Comments B Distraction Test Results - Straight Leg Raise Test Results + Comments R Slump Test Results + Comments R PT-OP-M Strength Start: 03/01/24 09:02 Freq: Status: Active Protocol: Document 04/26/24 08:16 NM (Rec: 04/26/24 09:01 NM [id number]) Trunk Strength Trunk Manual Muscle Testing Flexion 4- Good- Rotation Left 4- Good- Rotation Right 3+ Fair+ Lateral Flexion Left 4- Good- Lateral Flexion Right 3+ Fair+ Comments pain with rot, R LF, flex 04/20/24: 4/5 PT-OP-Q Treatments Start: 03/01/24 09:02 Freq: Status: Active Protocol: Document 04/26/24 08:16 NM (Rec: 04/26/24 09:01 NM [id number]) Therapeutic Exercises Sitting Exercises overhead press Side bilateral Resistance 5# db ea hand Reps/Minutes 2x10 Comments cued breathwork; challenging trunk flexion Sitting Exercise Name with segmental flex and ext Side bilateral Resistance AROM Reps/Minutes 5 ea Comments no pain; cue breathwork Other Exercises carries Other Exercise Name 1. suitcase, 2. asymmetrical, 3. landaverde carries Side bilateral Resistance 10# db ea hand Reps/Minutes 125 feet ea position Comments no pain goblet squat Side bilateral Resistance 10# db Reps/Minutes 2x10 Comments with core bracing; no pain; cued closer to body quadruped Other Exercise Name bird dog Side bilateral Reps/Minutes 10 ea Comments non-alt, no pain Therapeutic Activity Therapeutic Activity body mechanics Comments 1. hinge to wall for tactile cue 2. hip hinge w/ band level 4 prn cues for core brace and knee flexion w. squat 3. box deadlift 5# > 10# 4. box carries 5# > 10# 5. overhead lifting into cabinet 5# and 10# in box Cueing to keep wt close to body, use of BLE to assist Manual Therapy Treatment Consent Patient gave verbal consent for manual Yes treatment Soft Tissue Mobilization B hips/glutes Body Location hip flexors and glute/ piriformis area right Mobilization Type Rolling,Strumming Intensity/Depth Moderate Body Position Supine Comments Monitored for pain lumbar paraspinals Body Location QL, paraspinals Mobilization Type Rolling,Strumming Intensity/Depth Superficial Body Position Sidelying Comments Performed B. Gentle rolling and strumming. Also performed w/ lateral flexion mobilization and gentle A/P pelvic tilts. Pt responds well . Monitored for pain. PT-OP-T Assessment and Plan Start: 03/01/24 09:02 Freq: Status: Active Protocol: Document 04/26/24 08:16 NM (Rec: 04/26/24 09:01 NM [id number]) Physical Therapy Assessment Goals Four Impairment not performing HEP Short Term Goal (STG) Pt will be issued HEP and will report compliance at least 3x /wk in order to maximize progression with PT STG Duration 4 weeks Correction Goal (LTG) Pt will report compliance with HEP at least 3x/wk in order to transition to maintenance program following discharge from PT 04/20/24: pt performing HEP daily LTG Duration 10 weeks MET Three Impairment sitting and standing tolerance impaired <30 min Short Term Goal (STG) Pt will report that she is able to sit and stand for at least 30 minutes without increase in back pain in order to demonstrate improved symptom management STG Duration 6 weeks [employer] Goal (LTG) Pt will report that she is able to sit and stand for at least 60 minutes without increase in back pain in order to demonstrate improved symptom management and activity tolerance 04/20/24: pt repots that she is able to stand/sit for any length of time wihout increase in back pain or noticing pain ; watched movie for 2 hours w/ o moving and had 9 hr shift w/ only 1 hr break LTG Duration 10 weeks MET, PROGRESSING Two Impairment sleeping impaired: unable to sleep w/o medication Short Term Goal (STG) Pt will be educated on sleeping ergonomics to improve sleeping quality STG Duration 3 weeks Correction Goal (LTG) Pt will report that her sleep is limited <50% of the time due to her back pain 04/20/24: pain sleeps through night without pain medication LTG Duration 10 weeks MET One Impairment oswestry 64/100 Correction Goal (LTG) Pt will decrease Oswestry impairment score to less than 50% impairment in order to demonstrate improved symptom management and activity tolerance for ADLs. 04/20/24: 12/100 LTG Duration 10 weeks MET Progress Towards Goals Progress Towards Goals Goals Met Assessment Summary Assessment Pt tolerated session well. No back pain reported with ther- ex. Tolerated progressions with exercise and resistance well. Continued with posterior chain and over head strengthening. In preparation for pt future work and for more body mechanics training, continued with lifting from floor, overhead, and carrying. Pt able to progress up to 10# before compensation. Cued for form, especially keeping resistance close to body. Pt and PT discussed discharge at last session; both in agreement about discharge. Physical Therapy Plan Frequency and Duration Frequency of Treatment 1-2x/wk Duration of treatment (weeks) 10 Plan of Care Start Date 03/01/24 Plan of Care End Date 05/12/24 Therapeutic Interventions Therapeutic Interventions Balance Training,Gait Training ,Home Exercise Program,Joint Mobilizations,Manual Therapy, Neuromuscular Re-education, Orthotic/Prosthetic Management ,Patient/Caregiver Education, Self-Care/Home Management, Sensory Integration,Soft Tissue Mobilization,Taping, Therapeutic Activities, Therapeutic Exercises Modalities Cold Pack/Ice Massage,Electric Stimulation,Hot Packs, Ultrasound Other Referrals/Consults Referrals/Consults Recommended MRI and referral to academic specialist and/or paint trimmer pipe bowls, in addition to referral to counselor Discharge Physical Therapy Discharge Reasons Goals Met Discharge Comments All goals met. Pt and PT discussed discharge from PT to maintenance program. Issued maintenance program and progressions. Next Visit Focus/Plan Next Note Type Discharge Summary Next Visit Plan Hip hinge, body mechanics. HEP review and modications. Cont with quadruped work, trial bird dog, add band for hip strengthening manual therapy: sidelying with pillow to lumbar spine and paraspinals
== END 2024-04-28 10:21 | disposition home or self-care (01) ==
LOC: PHYS 08:15
PROVIDERS: Family Provider Student in an Organized Health Care Education/Training Program; PCP Student in an Organized Health Care Education/Training Program; Referring Provider Student in an Organized Health Care Education/Training Program; Visit Provider Student in an Organized Health Care Education/Training Program
DX: M54.9 Dorsalgia, unspecified (principal); M25.651 Stiffness of right hip, not elsewhere classified; R53.1 Weakness
CPT/HCPCS: 97110; 97140; 97530; 97535

== ENCOUNTER → 2024-06-15 08:38 | Outpatient (CLI) | payer OTHER, SELFPAY ==
[2023-07-05 07:54] VITALS: BMI 31.6
[2024-06-15 09:17] LABS: Add Manual Diff / Slide Review NO; Basophils Absolute Auto 0 /uL (0-100); Basophils Percent Auto 0.5 % (0-2); Eosinophils Absolute Auto 100 /uL (0-450); Eosinophils Percent Auto 1.1 % (2-4); Hematocrit 37.8 % (36-46); Hemoglobin 12.7 g/dL (12.0-16.0); Lymphocytes Absolute Auto 2100 /uL (1100-4500); Lymphocytes Percent Auto 31.4 % (25-40); Mean Corpuscular HGB Conc 33.5 % (30-36); Mean Corpuscular Hemoglobin 29.2 PG (26-34); Mean Corpuscular Volume 87.2 fL (80-100); Monocytes Absolute Auto 500 /uL (0-900); Monocytes Percent Auto 7.3 % (3-14); Neutrophils Absolute Auto 4000 /uL (1500-7000); Neutrophils Percent Auto 59.7 % (50-75); Platelet Count 217 X10^3/uL (150-400); Red Blood Cell Count 4.34 X10^6/uL (4.0-5.2); Red Cell Distribution Width 13.9 % (11.6-14.8); White Blood Cell Count 6.6 X10^3/uL (4.5-11.0)
[2024-06-15 10:06] LABS: HEMOLYSIS < 15 (0-50); Iron 70 ug/dL (37-170)
[2024-06-15 10:16] LABS: Percent Iron Saturation 17 % (15-50); Total Iron Binding Capacity 409 ug/dL (265-497); Transferrin 360 mg/dL (206-381)
[2024-06-15 10:42] LABS: Ferritin 7 ng/mL (6-137)
== END ==
PROVIDERS: Family Provider Student in an Organized Health Care Education/Training Program; PCP Student in an Organized Health Care Education/Training Program; Referring Provider Student in an Organized Health Care Education/Training Program; Visit Provider Student in an Organized Health Care Education/Training Program
DX: Z86.39 Personal history of other endocrine, nutritional and metabolic disease (principal)
CPT/HCPCS: 36415; 82728; 83540; 83550; 85025

== ENCOUNTER → 2024-07-25 08:30 | Oncology outpatient (ONC) | payer OTHER, SELFPAY ==
[2023-07-05 07:54] VITALS: BMI 31.6
[2024-07-18 08:25] VITALS: BP 152/77; PULSE 77; RESP 18; TEMP 36.2; O2SAT 98
[2024-07-18] MEDS: ferumoxytoL 510 MG in SODIUM CHLORIDE 0.9% 100 ML 234 MG IV (09:07)
[2024-07-18 09:45] VITALS: BP 118/80; PULSE 75; RESP 18; TEMP 36.8; O2SAT 99
[2024-07-25 08:49] VITALS: BP 111/79; PULSE 97; RESP 18; TEMP 36.6; O2SAT 100
[2024-07-25] MEDS: ferumoxytoL 510 MG in SODIUM CHLORIDE 0.9% 100 ML 234 MG IV (09:00)
[2024-07-25 10:34] VITALS: BP 112/73; PULSE 87; RESP 16; TEMP 36.7
== END ==
PROVIDERS: Family Provider Student in an Organized Health Care Education/Training Program; PCP Student in an Organized Health Care Education/Training Program; Referring Provider Student in an Organized Health Care Education/Training Program; Visit Provider Student in an Organized Health Care Education/Training Program
DX: D50.9 Iron deficiency anemia, unspecified (principal)
CPT/HCPCS: 96365; Q0138

== ENCOUNTER → 2024-08-26 08:37 | Outpatient (CLI) | payer OTHER, SELFPAY ==
[2023-07-05 07:54] VITALS: BMI 31.6
[2024-08-26 09:40] LABS: Add Manual Diff / Slide Review NO; Basophils Absolute Auto 0 /uL (0-100); Basophils Percent Auto 0.5 % (0-2); Eosinophils Absolute Auto 100 /uL (0-450); Eosinophils Percent Auto 1.1 % (2-4); Hematocrit 40.3 % (36-46); Hemoglobin 13.9 g/dL (12.0-16.0); Lymphocytes Absolute Auto 2200 /uL (1100-4500); Lymphocytes Percent Auto 39.9 % (25-40); Mean Corpuscular HGB Conc 34.4 % (30-36); Mean Corpuscular Hemoglobin 30.6 PG (26-34); Monocytes Absolute Auto 400 /uL (0-900); Monocytes Percent Auto 6.4 % (3-14); Neutrophils Absolute Auto 2900 /uL (1500-7000); Neutrophils Percent Auto 52.1 % (50-75); Platelet Count 178 X10^3/uL (150-400); Red Blood Cell Count 4.52 X10^6/uL (4.0-5.2); Red Cell Distribution Width 15.2 % (11.6-14.8); White Blood Cell Count 5.6 X10^3/uL (4.5-11.0)
[2024-08-26 09:59] LABS: HEMOLYSIS < 15 (0-50); Iron 166 ug/dL (37-170)
[2024-08-26 10:13] LABS: Percent Iron Saturation 58 % (15-50); Total Iron Binding Capacity 285 ug/dL (265-497); Transferrin 222 mg/dL (206-381)
[2024-08-26 10:36] LABS: Ferritin 142 ng/mL (6-137)
== END ==
PROVIDERS: Family Provider Student in an Organized Health Care Education/Training Program; PCP Student in an Organized Health Care Education/Training Program; Referring Provider Student in an Organized Health Care Education/Training Program; Visit Provider Student in an Organized Health Care Education/Training Program
DX: Z86.39 Personal history of other endocrine, nutritional and metabolic disease (principal)
CPT/HCPCS: 36415; 82728; 83540; 83550; 85025

== ENCOUNTER → 2024-11-17 10:01 | Outpatient (CLI) | payer OTHER, SELFPAY ==
[2023-07-05 07:54] VITALS: BMI 31.6
[2024-11-17 10:46] LABS: Add Manual Diff / Slide Review NO; Basophils Absolute Auto 0 /uL (0-100); Basophils Percent Auto 0.4 % (0-2); Eosinophils Absolute Auto 100 /uL (0-450); Eosinophils Percent Auto 1.3 % (2-4); Hemoglobin 14.4 g/dL (12.0-16.0); Lymphocytes Absolute Auto 2100 /uL (1100-4500); Lymphocytes Percent Auto 39.6 % (25-40); Mean Corpuscular Hemoglobin 31.7 PG (26-34); Mean Corpuscular Volume 90.5 fL (80-100); Monocytes Absolute Auto 300 /uL (0-900); Monocytes Percent Auto 5.4 % (3-14); Neutrophils Absolute Auto 2900 /uL (1500-7000); Neutrophils Percent Auto 53.3 % (50-75); Platelet Count 171 X10^3/uL (150-400); Red Blood Cell Count 4.53 X10^6/uL (4.0-5.2); Red Cell Distribution Width 12.6 % (11.6-14.8); White Blood Cell Count 5.4 X10^3/uL (4.5-11.0)
[2024-11-17 11:07] LABS: HEMOLYSIS < 15 (0-50); Iron 112 ug/dL (37-170)
[2024-11-17 11:10] LABS: Alanine Aminotransferase 13 IU/L (<35); Albumin Globulin Ratio 1.9 (1.0-2.8); Alkaline Phosphatase 64 U/L (38-126); Aspartate Aminotransferase 18 IU/L (14-36); BUN Creatinine Ratio 19.4 (6-22); Bilirubin Total 1.1 mg/dL (0.2-1.3); Blood Urea Nitrogen 14 mg/dL (7-17); Calcium 9.7 mg/dL (8.4-10.2); Carbon Dioxide 28 mmol/L (22-32); Chloride 101 mmol/L (98-107); Estimated Glomerular Filt Rate > 60 mL/min (>60); Globulin 2.6 g/dL (1.7-4.1); Glucose 82 mg/dL (70-99); HEMOLYSIS < 15 (0-50); Potassium 4.2 mmol/L (3.4-5.1); Sodium 139 mmol/L (137-145); Total Protein 7.6 g/dL (6.3-8.2)
[2024-11-17 11:19] LABS: Percent Iron Saturation 40 % (15-50); Total Iron Binding Capacity 279 ug/dL (265-497); Transferrin 214 mg/dL (206-381)
[2024-11-17 11:39] LABS: Thyroid Stimulating Hormone 0.383 uIU/mL (0.47-4.68)
[2024-11-17 11:45] LABS: Ferritin 225 ng/mL (6-137)
== END ==
PROVIDERS: Family Provider Student in an Organized Health Care Education/Training Program; PCP Student in an Organized Health Care Education/Training Program; Referring Provider Student in an Organized Health Care Education/Training Program; Visit Provider Student in an Organized Health Care Education/Training Program
DX: R42 Dizziness and giddiness (principal)
CPT/HCPCS: 36415; 80053; 82728; 83540; 83550; 84443; 85025